=== PATIENT | female | born 1940 | race Caucasian/White ===

== ENCOUNTER 2020-07-04 | Outpatient (REF) | payer MEDICAID, SELFPAY ==
[2020-07-04 07:16] LABS: Hemoglobin 12.7 g/dl (12.0-16.0); Mean Corpuscular HGB Conc 31.8 g/dl (31.0-35.0); Mean Corpuscular Volume 88.1 fL (80-98); Mean Platelet Volume 9.3 fL (9.4-12.3); Platelet Count 171 X10*3/uL (160-400); Red Blood Count 4.54 X10*6/uL (4.20-5.50); Red Cell Distribution Width 14.3 % (11.0-16.0); White Blood Count 7.7 X10*3/uL (4.8-10.8)
[2020-07-04 07:42] LABS: Anion Gap 11 (12-20); Blood Urea Nitrogen 30 mg/dL (9-16); Carbon Dioxide 33 mmol/L (22-29); Chloride 103 mmol/L (96-108); Estimated Glomerular Filt Rate > 60; Glucose Random 87 mg/dL (60-115); Potassium 4.6 mmol/l (3.3-5.1); Sodium 142 mmol/L (135-145)
== END 2020-07-04 00:01 | disposition home or self-care (01) ==
LOC: HO.MMNH2L
PROVIDERS: Visit Provider Family Medicine
DX: M62.81 Muscle weakness (generalized) (principal)
CPT/HCPCS: 36415; 80048; 85027

== ENCOUNTER 2020-08-02 06:55 | Outpatient (REF) | payer MEDICAID, SELFPAY ==
[2020-08-02 07:09] LABS: Hematocrit 38.5 % (37-47); Hemoglobin 12.7 g/dl (12.0-16.0); Mean Corpuscular Volume 87.9 fL (80-98); Platelet Count 162 X10*3/uL (160-400); Red Blood Count 4.38 X10*6/uL (4.20-5.50); Red Cell Distribution Width 14.3 % (11.0-16.0); White Blood Count 7.1 X10*3/uL (4.8-10.8)
[2020-08-02 07:31] LABS: Anion Gap 11 (12-20); Blood Urea Nitrogen 29 mg/dL (9-16); Calcium 9.8 mg/dL (8.4-10.2); Carbon Dioxide 31 mmol/L (22-29); Chloride 103 mmol/L (96-108); Estimated Glomerular Filt Rate > 60; Glucose Random 85 mg/dL (60-115); Potassium 4.2 mmol/l (3.3-5.1); Sodium 141 mmol/L (135-145)
== END 2020-08-02 06:56 | disposition home or self-care (01) ==
LOC: HO.MMNH2L 06:55
PROVIDERS: Visit Provider Family Medicine
DX: J44.9 Chronic obstructive pulmonary disease, unspecified (principal)
CPT/HCPCS: 36415; 80048; 85027

== ENCOUNTER 2020-09-01 06:50 | Outpatient (REF) | payer MEDICAID, SELFPAY ==
[2020-09-01 07:12] LABS: Hematocrit 40.3 % (37-47); Mean Corpuscular HGB Conc 32.3 g/dl (31.0-35.0); Mean Corpuscular Hemoglobin 28.6 pg (27.0-33.0); Mean Corpuscular Volume 88.6 fL (80-98); Mean Platelet Volume 9.1 fL (9.4-12.3); Platelet Count 172 X10*3/uL (160-400); Red Blood Count 4.55 X10*6/uL (4.20-5.50); Red Cell Distribution Width 14.2 % (11.0-16.0); White Blood Count 7.8 X10*3/uL (4.8-10.8)
[2020-09-01 07:26] LABS: Anion Gap 10 (12-20); Blood Urea Nitrogen 30 mg/dL (9-16); Calcium 10.1 mg/dL (8.4-10.2); Carbon Dioxide 32 mmol/L (22-29); Chloride 105 mmol/L (96-108); Estimated Glomerular Filt Rate 58; Glucose Random 94 mg/dL (60-115); Potassium 4.4 mmol/l (3.3-5.1); Sodium 143 mmol/L (135-145)
== END 2020-09-01 06:51 | disposition home or self-care (01) ==
LOC: HO.MMNH2L 06:50
PROVIDERS: Visit Provider Family Medicine
DX: J44.9 Chronic obstructive pulmonary disease, unspecified (principal); E03.9 Hypothyroidism, unspecified
CPT/HCPCS: 36415; 80048; 85027

== ENCOUNTER 2020-10-02 07:40 | Outpatient (REF) | payer MEDICAID, SELFPAY ==
[2020-10-02 07:59] LABS: Hematocrit 38.6 % (37-47); Hemoglobin 12.7 g/dl (12.0-16.0); Mean Corpuscular HGB Conc 32.9 g/dl (31.0-35.0); Mean Corpuscular Hemoglobin 28.8 pg (27.0-33.0); Mean Corpuscular Volume 87.5 fL (80-98); Mean Platelet Volume 9.2 fL (9.4-12.3); Platelet Count 185 X10*3/uL (160-400); Red Blood Count 4.41 X10*6/uL (4.20-5.50); White Blood Count 6.7 X10*3/uL (4.8-10.8)
[2020-10-02 08:25] LABS: Anion Gap 11 (12-20); Blood Urea Nitrogen 29 mg/dL (9-16); Calcium 10.3 mg/dL (8.4-10.2); Carbon Dioxide 33 mmol/L (22-29); Chloride 104 mmol/L (96-108); Estimated Glomerular Filt Rate 60; Glucose Random 100 mg/dL (60-115); Potassium 4.6 mmol/l (3.3-5.1); Sodium 143 mmol/L (135-145)
== END 2020-10-02 07:41 | disposition home or self-care (01) ==
LOC: HO.MMNH2L 07:40
PROVIDERS: Visit Provider Family Medicine
DX: E03.9 Hypothyroidism, unspecified (principal)
CPT/HCPCS: 36415; 80048; 85027

== ENCOUNTER 2020-11-01 08:59 | Outpatient (REF) | payer MEDICAID, SELFPAY ==
[2020-11-01 06:58] LABS: Hematocrit 36.8 % (37-47); Hemoglobin 11.8 g/dl (12.0-16.0); Mean Corpuscular HGB Conc 32.1 g/dl (31.0-35.0); Mean Corpuscular Hemoglobin 28.2 pg (27.0-33.0); Mean Corpuscular Volume 87.8 fL (80-98); Mean Platelet Volume 9.2 fL (9.4-12.3); Platelet Count 182 X10*3/uL (160-400); Red Blood Count 4.19 X10*6/uL (4.20-5.50); Red Cell Distribution Width 14.4 % (11.0-16.0); White Blood Count 6.4 X10*3/uL (4.8-10.8)
[2020-11-01 07:05] LABS: Anion Gap 11 (12-20); Blood Urea Nitrogen 23 mg/dL (9-16); Calcium 9.9 mg/dL (8.4-10.2); Carbon Dioxide 31 mmol/L (22-29); Chloride 106 mmol/L (96-108); Estimated Glomerular Filt Rate 60; Glucose Random 98 mg/dL (60-115); Sodium 143 mmol/L (135-145)
== END 2020-11-01 09:00 | disposition home or self-care (01) ==
LOC: HO.MMNH2L 08:59
PROVIDERS: Visit Provider Family Medicine
DX: N17.9 Acute kidney failure, unspecified (principal)
CPT/HCPCS: 36415; 80048; 85027

== ENCOUNTER 2020-11-29 | Outpatient (REF) | payer MEDICAID, SELFPAY ==
[2020-11-29 06:59] LABS: Hematocrit 38.1 % (37-47); Hemoglobin 12.2 g/dl (12.0-16.0); Mean Corpuscular Hemoglobin 28.3 pg (27.0-33.0); Mean Corpuscular Volume 88.4 fL (80-98); Mean Platelet Volume 9.4 fL (9.4-12.3); Platelet Count 203 X10*3/uL (160-400); Red Blood Count 4.31 X10*6/uL (4.20-5.50); Red Cell Distribution Width 14.6 % (11.0-16.0); White Blood Count 6.7 X10*3/uL (4.8-10.8)
[2020-11-29 07:21] LABS: Anion Gap 11 (12-20); Blood Urea Nitrogen 23 mg/dL (9-16); Calcium 9.6 mg/dL (8.4-10.2); Carbon Dioxide 29 mmol/L (22-29); Chloride 109 mmol/L (96-108); Estimated Glomerular Filt Rate > 60; Glucose Random 94 mg/dL (60-115); Potassium 4.3 mmol/L (3.3-5.1); Sodium 145 mmol/L (135-145)
== END 2020-11-29 00:01 | disposition home or self-care (01) ==
LOC: HO.MMNH3L
PROVIDERS: Visit Provider Family Medicine
DX: N17.9 Acute kidney failure, unspecified (principal)
CPT/HCPCS: 36415; 80048; 85027

== ENCOUNTER 2020-12-17 06:49 | Outpatient (REF) | payer MEDICAID, SELFPAY ==
[2020-12-17 07:14] LABS: Hematocrit 39.8 % (37-47); Hemoglobin 12.9 g/dl (12.0-16.0); Mean Corpuscular HGB Conc 32.4 g/dl (31.0-35.0); Mean Corpuscular Hemoglobin 28.4 pg (27.0-33.0); Mean Corpuscular Volume 87.5 fL (80-98); Mean Platelet Volume 8.9 fL (9.4-12.3); Platelet Count 163 X10*3/uL (160-400); Red Blood Count 4.55 X10*6/uL (4.20-5.50); Red Cell Distribution Width 14.5 % (11.0-16.0); White Blood Count 7.2 X10*3/uL (4.8-10.8)
[2020-12-17 07:44] LABS: Alanine Aminotransferase 37 U/L (0-31); Albumin Level 3.8 g/dL (3.5-5.0); Alkaline Phosphatase 108 U/L (39-117); Anion Gap 10 (12-20); Aspartate Amino Transferase 19 U/L (5-31); Bilirubin Total 0.9 mg/dL (0.0-1.0); Blood Urea Nitrogen 25 mg/dL (9-16); Calcium 9.9 mg/dL (8.4-10.2); Carbon Dioxide 34 mmol/L (22-29); Chloride 104 mmol/L (96-108); Estimated Glomerular Filt Rate 54; Glucose Random 96 mg/dL (60-115); Potassium 4.7 mmol/L (3.3-5.1); Sodium 143 mmol/L (135-145); Total Protein 6.2 g/dL (6.5-8.0)
[2020-12-17 08:05] LABS: Free T4 (Free Thyroxine) 1.12 ng/dL (0.71-1.85); Vitamin D 25-OH Total 16.4 ng/mL (>30)
[2020-12-17 09:13] LABS: Folate 7.7 ng/mL (> or = 4.0); Vitamin B12 236 pg/mL (200-900)
== END 2020-12-17 06:50 | disposition home or self-care (01) ==
LOC: HO.MMNH3L 06:49
PROVIDERS: Visit Provider Family Medicine
DX: N17.9 Acute kidney failure, unspecified (principal); R53.1 Weakness
CPT/HCPCS: 36415; 80053; 82306; 82607; 82746; 84439; 84443; 85027

== ENCOUNTER 2021-01-29 | Outpatient (REF) | payer MEDICAID, SELFPAY ==
[2021-01-29 07:47] LABS: Cholesterol 150 mg/dL; HDL Cholesterol 26 mg/dL; LDL Cholesterol Calculated 64 mg/dl; Triglycerides 302 mg/dL
[2021-01-29 08:10] LABS: Free T4 (Free Thyroxine) 1.15 ng/dL (0.71-1.85); Thyroid Stimulating Hormone 0.49 uIU/mL (0.32-4.0)
== END 2021-01-29 00:01 | disposition home or self-care (01) ==
LOC: HO.MMNH3L
PROVIDERS: Visit Provider Family Medicine
DX: F32.9 Major depressive disorder, single episode, unspecified (principal); N17.9 Acute kidney failure, unspecified; I69.359 Hemiplegia and hemiparesis following cerebral infarction affecting unspecified side
CPT/HCPCS: 36415; 80061; 84439; 84443

== ENCOUNTER 2021-03-02 06:45 | Outpatient (REF) | payer SELFPAY ==
[2021-03-02 07:05] LABS: Hemoglobin 12.6 g/dl (12.0-16.0); Mean Corpuscular HGB Conc 32.3 g/dl (31.0-35.0); Mean Corpuscular Hemoglobin 28.3 pg (27.0-33.0); Mean Corpuscular Volume 87.4 fL (80-98); Mean Platelet Volume 9.1 fL (9.4-12.3); Platelet Count 179 X10*3/uL (160-400); Red Blood Count 4.46 X10*6/uL (4.20-5.50); Red Cell Distribution Width 14.6 % (11.0-16.0); White Blood Count 6.6 X10*3/uL (4.8-10.8)
[2021-03-02 07:34] LABS: Anion Gap 12 (12-20); Blood Urea Nitrogen 28 mg/dL (9-16); Calcium 10.1 mg/dL (8.4-10.2); Carbon Dioxide 31 mmol/L (22-29); Chloride 106 mmol/L (96-108); Estimated Glomerular Filt Rate 53; Glucose Random 93 mg/dL (60-115); Potassium 4.2 mmol/L (3.3-5.1); Sodium 145 mmol/L (135-145)
== END 2021-03-02 06:46 | disposition home or self-care (01) ==
LOC: HO.MMNH3L 06:45
PROVIDERS: Visit Provider Family Medicine
DX: J44.9 Chronic obstructive pulmonary disease, unspecified (principal); N17.9 Acute kidney failure, unspecified; E87.0 Hyperosmolality and hypernatremia
CPT/HCPCS: 36415; 80048; 85027

== ENCOUNTER 2021-05-04 05:00 | Outpatient (REF) | payer SELFPAY ==
[2021-05-04 07:16] LABS: Hematocrit 39.9 % (37-47); Hemoglobin 12.6 g/dl (12.0-16.0); Mean Corpuscular HGB Conc 31.6 g/dl (31.0-35.0); Mean Corpuscular Hemoglobin 27.6 pg (27.0-33.0); Mean Corpuscular Volume 87.5 fL (80-98); Mean Platelet Volume 9.4 fL (9.4-12.3); Platelet Count 159 X10*3/uL (160-400); Red Blood Count 4.56 X10*6/uL (4.20-5.50); Red Cell Distribution Width 14.8 % (11.0-16.0); White Blood Count 6.9 X10*3/uL (4.8-10.8)
[2021-05-04 07:36] LABS: Anion Gap 10 (12-20); Blood Urea Nitrogen 27 mg/dL (9-16); Calcium 9.8 mg/dL (8.4-10.2); Carbon Dioxide 32 mmol/L (22-29); Chloride 105 mmol/L (96-108); Estimated Glomerular Filt Rate 54; Glucose Random 90 mg/dL (60-115); Potassium 4.4 mmol/L (3.3-5.1); Sodium 143 mmol/L (135-145)
== END 2021-05-04 05:01 ==
LOC: HO.MMNH2L 05:00
PROVIDERS: Visit Provider Family Medicine
DX: M62.81 Muscle weakness (generalized) (principal)
CPT/HCPCS: 36415; 80048; 85027

== ENCOUNTER 2021-08-05 | Outpatient (REF) | payer MEDICARE, MEDICAID, SELFPAY ==
[2021-08-05 06:44] LABS: MANUAL DIFF FLAG NO
[2021-08-05 06:51] LABS: Basophils Percent Auto 0.4 % (0-2); Eosinophils Absolute Auto 0.2 X10*3/uL (0.0-0.4); Eosinophils Percent Auto 3.2 % (0-4); Hematocrit 39.9 % (37.0-47.0); Hemoglobin 12.7 g/dl (12.0-16.0); Imm Gran Abs Auto 0.07 X10*3/uL (0.00-0.03); Lymphocytes Absolute Auto 1.9 X10*3/uL (1.2-4.9); Lymphocytes Percent Auto 25.9 % (20-40); Mean Corpuscular HGB Conc 31.8 g/dl (31.0-35.0); Mean Corpuscular Hemoglobin 28.2 pg (27.0-33.0); Mean Corpuscular Volume 88.7 fL (80.0-98.0); Monocytes Absolute Auto 0.4 X10*3/uL (0.1-1.2); Neutrophils Absolute Auto 4.6 x10*3/uL (2.0-8.3); Neutrophils Percent Auto 63.5 % (45-73); Platelet Count 164 X10*3/uL (160-400); Red Cell Distribution Width 15.2 % (11.0-16.0); White Blood Count 7.2 X10*3/uL (4.8-10.8)
[2021-08-05 07:07] LABS: Anion Gap 9 (12-20); Blood Urea Nitrogen 30 mg/dL (9-16); Carbon Dioxide 33 mmol/L (22-29); Chloride 106 mmol/L (96-108); Estimated Glomerular Filt Rate 53; Glucose Random 97 mg/dL (60-115); Potassium 4.2 mmol/L (3.3-5.1); Sodium 144 mmol/L (135-145)
== END 2021-08-05 00:01 | disposition home or self-care (01) ==
LOC: HO.MMNH2L
PROVIDERS: Visit Provider Family Medicine
DX: M62.81 Muscle weakness (generalized) (principal)
CPT/HCPCS: 36415; 80048; 85025

== ENCOUNTER 2022-09-06 07:16 | Outpatient (REF) | payer MEDICAID, SELFPAY ==
[2022-09-06 08:52] LABS: Influenza A PCR POSITIVE (Negative); Influenza B PCR NEGATIVE (Negative); Resp Syncy Virus RNA Qual PCR NEGATIVE (Negative); SARS COV2 PCR INHOUSE NEGATIVE (Negative)
== END 2022-09-06 07:17 | disposition home or self-care (01) ==
LOC: HO.MMNH3L 07:16
PROVIDERS: Visit Provider Family Medicine
DX: Z20.822 Contact with and (suspected) exposure to COVID-19 (principal); J44.9 Chronic obstructive pulmonary disease, unspecified
CPT/HCPCS: 0241U

== ENCOUNTER 2022-09-06 09:46 | Inpatient (IN) | payer MEDICARE, MEDICAID, SELFPAY ==
[2022-09-06] VITALS (14 sets, daily range): BP systolic 86–164; BP diastolic 41–79; PULSE 63–100; RESP 14–28; TEMP 36.2–37.2; O2SAT 91–100; BMI 37.8; BMI 33.8
--- NOTE | 2022-09-06 10:14 | ECG_ITS ---
Test Reason : COUGHING Blood Pressure : / mmHG Vent. Rate : 103 BPM Atrial Rate : 103 BPM P-R Int : 166 ms QRS Dur : 106 ms QT Int : 324 ms P-R-T Axes : 038 -25 100 degrees QTc Int : 424 ms Sinus tachycardia Left ventricular hypertrophy with repolarization abnormality ( R in aVL , Sokolow-Kiser , Linden product , Romhilt-Mcallister ) Inferior infarct , age undetermined Abnormal ECG No previous ECGs available Referred By: Mercy Miles Electronically Signed By:Shubham Chamberlain
[2022-09-06 11:00] LABS: MANUAL DIFF FLAG NO
--- NOTE | 2022-09-06 11:01 | ED.GENADULT ---
HPI - General Adult General Chief complaint: Dyspnea Stated complaint: DIFF BREATHING Time Seen by Provider: 09/06/22 10:04 Source: patient, EMS and RN notes reviewed Mode of arrival: EMS Limitations: no limitations History of Present Illness HPI narrative: 82-year-old female brought [facility] from [facility] for evaluation of hypoxia patient was satting 75% on room air at the [facility], patient tested positive for the flu at the [facility] and also diagnosed with pneumonia was sent for further evaluation. Patient was given DuoNeb on facemask her O2 sat has improved to 95%. Patient is a former smoker with history of mild COPD required no supplemental oxygen use. 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 Related Data Home Medications Medication Instructions Recorded Confirmed Lactobacillus acidophilus 1 cap PO DAILY 09/06/22 09/06/22 (Acidophilus capsule) acetaminophen 325 mg tablet 650 mg PO Q4H PRN Pain 09/06/22 09/06/22 atorvastatin 80 mg tablet 80 mg PO BEDTIME 09/06/22 09/06/22 azithromycin 250 mg tablet 250 mg PO DAILY 09/06/22 09/06/22 benzocaine 15 mg lozenges 15 mg mucous membrane Q2H PRN Sore 09/06/22 09/06/22 Throat clopidogrel 75 mg tablet (Plavix) 75 mg PO DAILY 09/06/22 09/06/22 docusate sodium 100 mg capsule 100 mg PO DAILY 09/06/22 09/06/22 escitalopram oxalate 10 mg tablet 10 mg PO DAILY 09/06/22 09/06/22 fluticasone propionate 50 1 spray intranasal Q12H PRN 09/06/22 09/06/22 mcg/actuation nasal Allergy Symptoms spray,suspension hydrocortisone 2.5 % topical cream 1 appl topical Q12H PRN Pruritis 09/06/22 09/06/22 hydroxyzine HCl 25 mg tablet 25 mg PO Q6H PRN pruitis 09/06/22 09/06/22 ipratropium 0.5 mg-albuterol 3 mg 3 ml inhalation Q4H PRN Shortness 09/06/22 09/06/22 (2.5 mg base)/3 mL nebulization Of Breath Or Wheezing soln levetiracetam 250 mg tablet 250 mg PO BEDTIME 09/06/22 09/06/22 levetiracetam 250 mg tablet 500 mg PO DAILY 09/06/22 09/06/22 levothyroxine 150 mcg tablet 150 mcg PO DAILY 09/06/22 09/06/22 loratadine 10 mg tablet 10 mg PO DAILY 09/06/22 09/06/22 peg [id number] 1 1 drp ophthalmic (eye) Q8H PRN Dry 09/06/22 09/06/22 %-0.2 %-0.2 % eye drops Eye(S) (Artificial Tears ([id number])) polyethylene glycol 3350 17 17 g PO DAILY 09/06/22 09/06/22 gram/dose oral powder (Miralax) prednisone 20 mg tablet 60 mg PO DAILY 09/06/22 09/06/22 tizanidine 4 mg tablet 4 mg PO DAILY@1300 09/06/22 09/06/22 triamcinolone acetonide 0.1 % 1 appl topical BID 09/06/22 09/06/22 topical cream Allergies Allergy/AdvReac Type Severity Reaction Status Date / Time No Known Allergies Allergy Verified 09/06/22 10:14 Review of Systems Review of Systems: All other systems are reviewed and are negative Constitutional: Reports as per HPI and Reports no additional constitutional complaints Eyes: Reports as per HPI and Reports no additional eye complaints Reports system reviewed and no additional complaints, except as documented Cardiovascular: Reports as per HPI and Reports no additional cardiovascular complaints Respiratory: Reports as per HPI and Reports no additional respiratory complaints Gastrointestinal: Reports as per HPI and Reports no additional gastrointestinal complaints Genitourinary: Reports no additional female genitourinary complaints Musculoskeletal: Reports no additional musculoskeletal complaints Skin/Breast: Reports system reviewed and no additional complaints, except as docu Psychiatric: Reports no additional psychiatric complaints Endocrine: Reports no additional endocrine complaints Hematologic/Lymphatic: Reports no additional hematologic/lymphatic complaints Allergic/Immunologic: Reports no additional allergic/immunologic complaints Reports system reviewed and no additional complaints, except as documented and Reports Abnormal speech present PMFSH Social History Social History Advance Directives: No Advance Directives Information Provided: Yes Physical Exam ED Vital Signs: Vital Signs - 24 hr 09/06/22 10:06 09/06/22 11:31 09/06/22 11:59 Temperature 98.8 F Pulse Rate 100 78 85 Respiratory Rate 24 H 22 H 20 Blood Pressure 147/76 H 115/58 L Pulse Oximetry 95 100 Oxygen Delivery Method Nasal Cannula Nasal Cannula Oxygen Flow Rate 4 09/06/22 14:00 Temperature 98.7 F Pulse Rate 100 Respiratory Rate 22 H Blood Pressure 124/61 Pulse Oximetry 92 Oxygen Delivery Method Nasal Cannula Oxygen Flow Rate 4 BMI result Body Mass Index 37.8 Vital signs have been reviewed as appeared to be correct. Blood pressure normal. Heart rate normal. Respiration rate elevated. Temperature normal. Oxygen saturation normal. Appearance: Alert. Oriented X3. No acute distress. Head: Normal external exam. Normocephalic. Atraumatic. No Kirkpatrick signs noted. No raccoon eyes noted Eyes: PERRLA. EOMI. Conjunctiva and sclera normal. Eyelids normal. ENT: TM's Normal. Pharynx normal. Uvula midline. Moist mucous membranes. No trismus noted. No drooling noted. No muffled voice noted. Neck: Normal inspection. Neck supple. FROM. No adenopathy. Thyroid Normal. No meningeal signs. No neck mass noted. CVS: Normal heart rate and rhythm. Heart sound normal. No murmurs noted. Pulses normal throughout. Respiratory: No respiratory distress. Painless inspiration. Breath sounds normal. Bilateral diffuse expiratory wheezing with prolonged expiration and decreased breathing sound bilaterally, crackers bilateral bases of both lungs.. Chest nontender. No accessory muscle usage noted or decreased air movement noted. Abdomen: Soft and nontender. Bowel sounds normal in all 4 quadrants. No distention noted. No organomegaly noted. No visible injury noted. Back: No CVA tenderness. Full range of motion noted. Skin: Skin warm and dry. Normal skin color. Normal skin turgor. No rashes/lesions/lacerations noted. Extremities: No lower extremity edema. Extremities exhibit normal range of motion. Extremities nontender. Neuro: Oriented X 3. Cranial nerve exam: II-XII are grossly intact No motor deficit. No sensory deficit. Reflexes normal. Course Course Course Narrative: Influenza a, patient was hypoxic at the [facility] improved with oxygen and bronchodilator, CT/x-ray of the chest highly suspicious for infiltrate patient was covered with antibiotic patient do not meet criteria for sepsis or septic shock. Since patient's symptoms started in the last 72 hours will start the patient on Tamiflu. Will admit the patient continue supplemental oxygen. Because the equivocal chest x-ray patient had CT of the chest and incidentally found to have distended bowel subsequently CT of the abdomen and pelvis was ordered which showed constipation otherwise no acute pathology, patient will be given enema. Medications Administered Discontinued Medications Generic Name Dose Route Start Last Admin Trade Name Freq PRN Reason Stop Dose Admin Albuterol Sulfate 2.5 mg 09/06/22 11:00 09/06/22 11:28 Albuterol Sulfate (0.083%) 2.5 Mg/3 Ml Vial.Neb INHALE 09/06/22 11:01 2.5 mg ONCE ONE Administration Albuterol/Ipratropium 3 ml 09/06/22 11:00 09/06/22 11:28 Albuterol/Iprat 2.5/0.5mg 3 Ml Ampul.Neb INHALE 09/06/22 11:01 3 ml ONCE ONE Administration Ceftriaxone Sodium 1 gm/ 50 mls @ 100 mls/hr 09/06/22 11:06 09/06/22 12:53 Sodium Chloride IV 09/06/22 11:35 Infused ONCE ONE Infusion Azithromycin 500 mg/ Sodium 250 mls @ 125 mls/hr 09/06/22 11:06 09/06/22 12:53 Chloride IV 09/06/22 13:05 125 mls/hr ONCE ONE Administration Sodium Chloride 1,000 mls @ 250 mls/hr 09/06/22 11:06 09/06/22 11:55 Ns IV 09/06/22 15:05 250 mls/hr .Q4H ONE Administration Methylprednisolone Sodium Succinate 125 mg 09/06/22 11:00 09/06/22 11:55 Methylprednisolone Sod Succ 125 Mg/2 Ml Vial IVPUSH 09/06/22 11:01 125 mg ONCE ONE Administration Medical Decision Making Differential Diagnosis Differential Diagnoses: The differential diagnosis associated with the presentation includes (COPD exacerbation/pneumonia/severe sepsis/influenza/COVID-19/RSV/CHF/hypoxia) Admission/Observation Consideration of admission/observation: Escalation of care including admission/observation considered Consult Healthcare Provider Management of the patient was discussed with: Hospitalist Lab Data MDM Lab Attestation statement: I reviewed the patient's lab results. Result Diagrams: 09/06/22 10:55 12/26/22 10:54 Labs: Lab Results 09/06/22 09/06/22 09/06/22 Range/Units 10:29 10:54 10:54 WBC (4.8-10.8) X10*3/uL RBC (4.20-5.50) X10*6/uL Hgb (12.0-16.0) g/dl Hct (37.0-47.0) % MCV (80.0-98.0) fL MCH (27.0-33.0) pg MCHC (31.0-35.0) g/dl RDW (11.0-16.0) % Plt Count (160-400) X10*3/uL MPV (9.4-12.3) fL Immature Gran % (Auto) (0.0-0.4) % Neut % (Auto) (45-73) % Lymph % (Auto) (20-40) % Person % (Auto) (2-11) % Eos % (Auto) (0-4) % Baso % (Auto) (0-2) % Lymph # (Auto) (1.2-4.9) X10*3/uL Person # (Auto) (0.1-1.2) X10*3/uL Eos # (Auto) (0.0-0.4) X10*3/uL Baso # (Auto) (0.0-0.2) X10*3/uL Abs Immat Gran (auto) (0.00-0.03) X10*3/uL Absolute Neuts (auto) (2.0-8.3) x10*3/uL Absolute Nucleated RBC (0.0-0.012) X10*3/uL Nucleated RBC % (auto) (0.0-0.2) /100WBC Sodium 148 H (135-145) mmol/L Potassium 4.3 (3.3-5.1) mmol/L Chloride 104 (96-108) mmol/L Carbon Dioxide 38 H (22-29) mmol/L Anion Gap 10 L (12-20) BUN 19 H (9-16) mg/dL Creatinine 1.05 (0.5-1.4) mg/dL Estim Creat Clear Calc 42.1 Estimated GFR 50 Random Glucose 124 H (60-115) mg/dL Lactic Acid 0.7 (0.5-2.0) mmol/L Calcium 10.2 (8.4-10.2) mg/dL Total Bilirubin 1.0 (0.0-1.0) mg/dL Direct Bilirubin 0.3 (0.0-0.5) mg/dL AST 14 (5-31) U/L ALT 16 (0-31) U/L Alkaline Phosphatase 101 (39-117) U/L Troponin I High Sens (<3.5-17.0) ng/L B-Natriuretic Peptide (<100) pg/mL Total Protein 6.4 L (6.5-8.0) g/dL Albumin 3.7 (3.5-5.0) g/dL Lipase 18 (8-78) U/L Influenza Type A (PCR) POSITIVE A (Negative) Influenza Type B (PCR) NEGATIVE (Negative) RSV RNA Qual (PCR) NEGATIVE (Negative) SARS-CoV-2 RNA (RT-PCR) NEGATIVE (Negative) 09/06/22 09/06/22 09/06/22 Range/Units 10:55 10:55 10:55 WBC 11.8 H (4.8-10.8) X10*3/uL RBC 5.09 (4.20-5.50) X10*6/uL Hgb 13.6 (12.0-16.0) g/dl Hct 45.5 (37.0-47.0) % MCV 89.4 (80.0-98.0) fL MCH 26.7 L (27.0-33.0) pg MCHC 29.9 L (31.0-35.0) g/dl RDW 15.2 (11.0-16.0) % Plt Count 135 L (160-400) X10*3/uL MPV 9.4 (9.4-12.3) fL Immature Gran % (Auto) 0.6 H (0.0-0.4) % Neut % (Auto) 86.2 H (45-73) % Lymph % (Auto) 7.4 L (20-40) % Person % (Auto) 4.7 (2-11) % Eos % (Auto) 0.8 (0-4) % Baso % (Auto) 0.3 (0-2) % Lymph # (Auto) 0.9 L (1.2-4.9) X10*3/uL Person # (Auto) 0.6 (0.1-1.2) X10*3/uL Eos # (Auto) 0.1 (0.0-0.4) X10*3/uL Baso # (Auto) 0.0 (0.0-0.2) X10*3/uL Abs Immat Gran (auto) 0.07 H (0.00-0.03) X10*3/uL Absolute Neuts (auto) 10.2 H (2.0-8.3) x10*3/uL Absolute Nucleated RBC 0.000 (0.0-0.012) X10*3/uL Nucleated RBC % (auto) 0.0 (0.0-0.2) /100WBC Sodium (135-145) mmol/L Potassium (3.3-5.1) mmol/L Chloride (96-108) mmol/L Carbon Dioxide (22-29) mmol/L Anion Gap (12-20) BUN (9-16) mg/dL Creatinine (0.5-1.4) mg/dL Estim Creat Clear Calc Estimated GFR Random Glucose (60-115) mg/dL Lactic Acid (0.5-2.0) mmol/L Calcium (8.4-10.2) mg/dL Total Bilirubin (0.0-1.0) mg/dL Direct Bilirubin (0.0-0.5) mg/dL AST (5-31) U/L ALT (0-31) U/L Alkaline Phosphatase (39-117) U/L Troponin I High Sens 13.4 (<3.5-17.0) ng/L B-Natriuretic Peptide 286 H (<100) pg/mL Total Protein (6.5-8.0) g/dL Albumin (3.5-5.0) g/dL Lipase (8-78) U/L Influenza Type A (PCR) (Negative) Influenza Type B (PCR) (Negative) RSV RNA Qual (PCR) (Negative) SARS-CoV-2 RNA (RT-PCR) (Negative) Independent Interpretation I performed an independent interpretation of an: Plain X-Ray (Right middle lobe infiltrate.) Radiology Impression Discussion of test interpretation with radiology: I have reviewed the radiologist's reading. (CT chest/abdomen and pelvis.) Discharge Plan Discharge Clinical Impression: Hypoxia, Influenza A, Pneumonia, Acute exacerbation of chronic obstructive pulmonary disease Patient Disposition: Admitted As Inpatient
[2022-09-06 11:03] LABS: Basophils Percent Auto 0.3 % (0-2); Eosinophils Absolute Auto 0.1 X10*3/uL (0.0-0.4); Eosinophils Percent Auto 0.8 % (0-4); Hematocrit 45.5 % (37.0-47.0); Hemoglobin 13.6 g/dl (12.0-16.0); Imm Gran Abs Auto 0.07 X10*3/uL (0.00-0.03); Imm Gran Pct Auto 0.6 % (0.0-0.4); Lymphocytes Absolute Auto 0.9 X10*3/uL (1.2-4.9); Lymphocytes Percent Auto 7.4 % (20-40); Mean Corpuscular HGB Conc 29.9 g/dl (31.0-35.0); Mean Corpuscular Hemoglobin 26.7 pg (27.0-33.0); Mean Corpuscular Volume 89.4 fL (80.0-98.0); Mean Platelet Volume 9.4 fL (9.4-12.3); Monocytes Absolute Auto 0.6 X10*3/uL (0.1-1.2); Monocytes Percent Auto 4.7 % (2-11); Neutrophils Absolute Auto 10.2 x10*3/uL (2.0-8.3); Neutrophils Percent Auto 86.2 % (45-73); Platelet Count 135 X10*3/uL (160-400); Red Blood Count 5.09 X10*6/uL (4.20-5.50); Red Cell Distribution Width 15.2 % (11.0-16.0); White Blood Count 11.8 X10*3/uL (4.8-10.8)
--- NOTE | 2022-09-06 11:04 | PHA.MEDREC ---
Pharmacy Consult ? Medication Reconciliation Pharmacy has completed the medication reconciliation. Patient came from [facility] with med list. Luci Sexton, fideD
[2022-09-06 11:20] LABS: Lactic Acid 0.7 mmol/L (0.5-2.0)
[2022-09-06 11:24] LABS: Alanine Aminotransferase 16 U/L (0-31); Albumin Level 3.7 g/dL (3.5-5.0); Alkaline Phosphatase 101 U/L (39-117); Anion Gap 10 (12-20); Aspartate Amino Transferase 14 U/L (5-31); Bilirubin Direct 0.3 mg/dL (0.0-0.5); Blood Urea Nitrogen 19 mg/dL (9-16); Calcium 10.2 mg/dL (8.4-10.2); Carbon Dioxide 38 mmol/L (22-29); Chloride 104 mmol/L (96-108); Creatinine Clr Calc Pharmacy 42.1; Estimated Glomerular Filt Rate 50; Glucose Random 124 mg/dL (60-115); Lipase 18 U/L (8-78); Potassium 4.3 mmol/L (3.3-5.1); Sodium 148 mmol/L (135-145); Total Protein 6.4 g/dL (6.5-8.0)
[2022-09-06 11:28] LABS: Influenza A PCR POSITIVE (Negative); Influenza B PCR NEGATIVE (Negative); Resp Syncy Virus RNA Qual PCR NEGATIVE (Negative); SARS COV2 PCR INHOUSE NEGATIVE (Negative)
[2022-09-06 11:29] LABS: B Type Natriuretic Peptide 286 pg/mL (<100)
[2022-09-06 11:31] LABS: Troponin-I High Sensitivity 13.4 ng/L (<3.5-17.0)
--- NOTE | 2022-09-06 15:29 | PM.IMHP ---
History of Present Illness Date of Service: 09/06/22 <Isabela Yeboah NP - Last Filed: 09/06/22 16:00> Attending physician on admission: Santa Delgadillo <Isabela Yeboah NP - Last Filed: 09/06/22 16:00> Chief Complaint: SOB <Isabela Yeboah NP - Last Filed: 09/06/22 16:00> 82-year-old woman presenting from [facility] with hypoxia, oxygen saturation of 75% on room air. Apparently the patient had tested positive for influenza at the detention facility and again while in the ER. Was given DuoNebs and oxygen via face mask and her saturations did improve up to the high 90s. Patient is mostly bed ridden and wheelchair-bound. Unfortunately patient was unable to give any information she is lethargic and there is believed to be a component of dementia as well Chest CT showing dependent consolidation of both lungs, likely reflecting atelectasis with possible superimposed infection, abdominal CT showing severe constipation with desiccated stool ball at the rectal vault. Sodium 148, patient received 1 L of normal saline in the ER. BNP 2 in 86 however patient does not appear to be in heart failure. Flu A positive. In the ER, she received albuterol, Solu-Medrol, Rocephin, azithromycin and 2 Fleet enemas. To be admitted for further management and treatment of acute hypoxic respiratory failure secondary to viral pneumonia and influenza A. <Isabela Yeboah NP - Last Filed: 09/06/22 16:00> Review of Systems Review of Systems: <Isabela Yeboah NP - Last Filed: 09/06/22 16:00> Yes Unobtainable due to mental condition and Unobtainable due to mental status <Isabela Yeboah NP - Last Filed: 09/06/22 16:00> [facility] Medical History: Medical History (Updated 09/06/22 @ 15:54 by Isabela Yeboah NP) Cardiomyopathy Constipation COPD (chronic obstructive pulmonary disease) CVA (cerebral vascular accident) Depression Dysphagia Hemiparesis Hyperlipidemia Hypothyroidism Seizure disorder TIA (transient ischemic attack) <Isabela Yeboah NP - Last Filed: 09/06/22 16:00> Pertinent family history: Unable to verify as patient is lethargic and unaccompanied <Isabela Yeboah NP - Last Filed: 09/06/22 16:00> Social History: Social History (Updated 09/06/22 @ 15:37 by Isabela Yeboah NP) Housing: [facility] Advance Directives: No Advance Directives Information Provided: Yes <Isabela Yeboah NP - Last Filed: 09/06/22 16:00> Meds Allergies/Adverse reactions: Allergies Allergy/AdvReac Type Severity Reaction Status Date / Time No Known Allergies Allergy Verified 09/06/22 10:14 <Isabela Yeboah NP - Last Filed: 09/06/22 16:00> Active Medications: Current Medications Acetaminophen (Acetaminophen 325 Mg Tablet) 650 mg PO Q6H PRN PRN Reason: Pain, Mild (Pain Scale 1-3) Albuterol/Ipratropium (Albuterol/Iprat 2.5/0.5mg 3 Ml Ampul.Neb) 3 ml INHALE Q4H PRN PRN Reason: Shortness Of Breath Or Wheezing Atorvastatin Calcium (Atorvastatin Calcium 80 Mg Tablet) 80 mg PO BEDTIME NOEMY Clopidogrel Bisulfate (Clopidogrel Bisulfate 75 Mg Tablet) 75 mg PO DAILY NOEMY Docusate Sodium (Docusate Sodium 100 Mg Capsule) 100 mg PO DAILY [facility] Escitalopram Oxalate (Escitalopram Oxalate 10 Mg Tablet) 10 mg PO DAILY [facility] Fluticasone Propionate (Fluticasone Propionate Nasal 16 Gm [place]) 1 spray NOSTRIL-B Q12H PRN PRN Reason: Allergy Symptoms Heparin Sodium (Porcine) (Heparin Sodium,Porcine 5,000 Unit/Ml Vial) 5,000 unit SUBCUT Q12H NOEMY Hydroxyzine HCl (Hydroxyzine Hcl 25 Mg Tablet) 25 mg PO Q6H PRN PRN Reason: pruitis Levetiracetam (Levetiracetam 250 Mg Tablet) 250 mg PO BEDTIME NOEMY Levetiracetam (Levetiracetam 500 Mg Tablet) 500 mg PO DAILY NOEMY Levothyroxine Sodium (Levothyroxine Sodium 150 Mcg Tablet) 150 mcg PO DAILY NOEMY Loratadine (Loratadine 10 Mg Tablet) 10 mg PO DAILY NOEMY Ondansetron HCl (Ondansetron Hcl 4 Mg/2 Ml Vial) 4 mg IVPUSH Q8H PRN PRN Reason: Nausea and Vomiting Oseltamivir Phosphate (Oseltamivir Phosphate 75 Mg Capsule) 75 mg PO Q12H NOEMY Stop: 09/11/22 03:31 Pharmacy Consult (Consult Rx Perform Med Rec) 1 each MISCELLANE ONCE PRN PRN Reason: Consult order Prednisone (Prednisone 20 Mg Tablet) 60 mg PO DAILY [facility] Sodium Chloride (0.9 % Sodium Chloride Flush 3 Ml Syringe) 3 ml IVFLUSH QSHIFT [facility] Tizanidine HCl (Tizanidine Hcl 4 Mg Tablet) 4 mg PO DAILY@1300 [facility] <Isabela Yeboah NP - Last Filed: 09/06/22 16:00> Home medications: Home Medications Medication Instructions Recorded Confirmed Last Taken Type Lactobacillus acidophilus 1 cap PO DAILY 09/06/22 09/06/22 Unknown History (Acidophilus capsule) acetaminophen 325 mg tablet 650 mg PO Q4H PRN Pain 09/06/22 09/06/22 Unknown History atorvastatin 80 mg tablet 80 mg PO BEDTIME 09/06/22 09/06/22 Unknown History azithromycin 250 mg tablet 250 mg PO DAILY 09/06/22 09/06/22 Unknown History benzocaine 15 mg lozenges 15 mg mucous membrane Q2H PRN Sore 09/06/22 09/06/22 Unknown History Throat clopidogrel 75 mg tablet (Plavix) 75 mg PO DAILY 09/06/22 09/06/22 Unknown History docusate sodium 100 mg capsule 100 mg PO DAILY 09/06/22 09/06/22 Unknown History escitalopram oxalate 10 mg tablet 10 mg PO DAILY 09/06/22 09/06/22 Unknown History fluticasone propionate 50 1 spray intranasal Q12H PRN 09/06/22 09/06/22 Unknown History mcg/actuation nasal Allergy Symptoms spray,suspension hydrocortisone 2.5 % topical cream 1 appl topical Q12H PRN Pruritis 09/06/22 09/06/22 Unknown History hydroxyzine HCl 25 mg tablet 25 mg PO Q6H PRN pruitis 09/06/22 09/06/22 Unknown History ipratropium 0.5 mg-albuterol 3 mg 3 ml inhalation Q4H PRN Shortness 09/06/22 09/06/22 Unknown History (2.5 mg base)/3 mL nebulization Of Breath Or Wheezing soln levetiracetam 250 mg tablet 250 mg PO BEDTIME 09/06/22 09/06/22 Unknown History levetiracetam 250 mg tablet 500 mg PO DAILY 09/06/22 09/06/22 Unknown History levothyroxine 150 mcg tablet 150 mcg PO DAILY 09/06/22 09/06/22 Unknown History loratadine 10 mg tablet 10 mg PO DAILY 09/06/22 09/06/22 Unknown History peg [id number] 1 1 drp ophthalmic (eye) Q8H PRN Dry 09/06/22 09/06/22 Unknown History %-0.2 %-0.2 % eye drops Eye(S) (Artificial Tears ([id number])) polyethylene glycol 3350 17 17 g PO DAILY 09/06/22 09/06/22 Unknown History gram/dose oral powder (Miralax) prednisone 20 mg tablet 60 mg PO DAILY 09/06/22 09/06/22 Unknown History tizanidine 4 mg tablet 4 mg PO DAILY@1300 09/06/22 09/06/22 Unknown History triamcinolone acetonide 0.1 % 1 appl topical BID 09/06/22 09/06/22 Unknown History topical cream <Isabela Yeboah NP - Last Filed: 09/06/22 16:00> Physical Exam Vital Signs and Narrative: Vital Signs: Last Vital Signs Temp 98.7 F 09/06/22 14:00 Pulse 100 09/06/22 14:00 Resp 22 H 09/06/22 14:00 BP 124/61 09/06/22 14:00 Pulse Ox 92 09/06/22 14:00 O2 Del Method 09/06/22 14:00 O2 Flow Rate 4 09/06/22 14:00 Oxygen Flow Rate 5 09/06/22 10:06 BMI result Body Mass Index 37.8 <Isabela Yeboah NP - Last Filed: 09/06/22 16:00> Appearing in no acute distress head is normocephalic atraumatic eyes pupils are PERRLA sclera is anicteric mouth throat mucous membranes are intact and moist neck is supple no lymphadenopathy, no JVD noted lung sounds are clear to auscultation heart regular rate rhythm, clear S1, S2 positive bowel sounds, abdomen is soft, nontender neuro patient is alert x3, no focal deficits <Isabela Yeboah NP - Last Filed: 09/06/22 16:00> Results Labs CBC and Chem 7: : 09/06/22 10:55 09/06/22 10:54 <Isabela Yeboah NP - Last Filed: 09/06/22 16:00> Labs: Laboratory Results - last 24 hr 09/06/22 09/06/22 09/06/22 10:29 10:54 10:54 MCV MCH MCHC RDW Plt Count MPV Immature Gran % (Auto) Neut % (Auto) Lymph % (Auto) [place] % (Auto) Eos % (Auto) Baso % (Auto) Lymph # (Auto) [place] # (Auto) Eos # (Auto) Baso # (Auto) Abs Immat Gran (auto) Absolute Neuts (auto) Absolute Nucleated RBC Nucleated RBC % (auto) Anion Gap 10 L Estim Creat Clear Calc 42.1 Estimated GFR 50 Random Glucose 124 H Lactic Acid 0.7 Calcium 10.2 Total Bilirubin 1.0 Direct Bilirubin 0.3 AST 14 ALT 16 Alkaline Phosphatase 101 Troponin I High Sens B-Natriuretic Peptide Total Protein 6.4 L Albumin 3.7 Lipase 18 Influenza Type A (PCR) POSITIVE A Influenza Type B (PCR) NEGATIVE RSV RNA Qual (PCR) NEGATIVE SARS-CoV-2 RNA (RT-PCR) NEGATIVE 09/06/22 09/06/22 09/06/22 10:55 10:55 10:55 MCV 89.4 MCH 26.7 L MCHC 29.9 L RDW 15.2 Plt Count 135 L MPV 9.4 Immature Gran % (Auto) 0.6 H Neut % (Auto) 86.2 H Lymph % (Auto) 7.4 L [place] % (Auto) 4.7 Eos % (Auto) 0.8 Baso % (Auto) 0.3 Lymph # (Auto) 0.9 L [place] # (Auto) 0.6 Eos # (Auto) 0.1 Baso # (Auto) 0.0 Abs Immat Gran (auto) 0.07 H Absolute Neuts (auto) 10.2 H Absolute Nucleated RBC 0.000 Nucleated RBC % (auto) 0.0 Anion Gap Estim Creat Clear Calc Estimated GFR Random Glucose Lactic Acid Calcium Total Bilirubin Direct Bilirubin AST ALT Alkaline Phosphatase Troponin I High Sens 13.4 B-Natriuretic Peptide 286 H Total Protein Albumin Lipase Influenza Type A (PCR) Influenza Type B (PCR) RSV RNA Qual (PCR) SARS-CoV-2 RNA (RT-PCR) <Isabela Yeboah NP - Last Filed: 09/06/22 16:00> Imaging Radiologist's Impressions: Impressions Chest X-Ray 09/06/22 10:20 FINDINGS/IMPRESSION: The study is limited by portable technique, low lung volumes, and thoracic dextroscoliosis. Prominence of the pulmonary veins in their nondependent portions raises suspicion for pulmonary venous hypertension. Patchy, bilateral interstitial prominence appears present. Small left basilar hazy density suggests pleural fluid, atelectasis, and/or focal infiltrate. The above findings raise the possibility of pulmonary edema with small left effusion; superimposed pneumonia cannot be confirmed or excluded. The cardiac silhouette is poorly evaluated. The aorta is atherosclerotic and uncoiled. Chest CT 09/06/22 12:52 IMPRESSION: * Large desiccated stool ball within the rectum measuring at 10.5 cm in diameter with rectal wall thickening and infiltration of the perirectal fat suspicious for stercoral colitis. Trace free fluid in the right lower quadrant. * Heart is mildly enlarged with small bilateral pleural effusions and ill-defined groundglass and interlobular septal thickening in the lung apices suggests a component of pulmonary edema. * Significant dependent consolidation in both lungs, given the exam performed in expiration likely to reflect significant atelectasis with near complete right middle lobe collapse, however superimposed infection would be difficult to exclude. * Cholelithiasis without evidence of acute cholecystitis. * A 2.9 cm cystic lesion in the pancreatic neck. No pancreatic duct dilatation. Recommend every other year follow-up MR/MRCP with contrast x2 to assess stability. * 3 mm nonobstructing right upper pole renal stone. No obstructive ureterolithiasis. Abdomen/Pelvis CT 09/06/22 12:55 IMPRESSION: * Large desiccated stool ball within the rectum measuring at 10.5 cm in diameter with rectal wall thickening and infiltration of the perirectal fat suspicious for stercoral colitis. Trace free fluid in the right lower quadrant. * Heart is mildly enlarged with small bilateral pleural effusions and ill-defined groundglass and interlobular septal thickening in the lung apices suggests a component of pulmonary edema. * Significant dependent consolidation in both lungs, given the exam performed in expiration likely to reflect significant atelectasis with near complete right middle lobe collapse, however superimposed infection would be difficult to exclude. * Cholelithiasis without evidence of acute cholecystitis. * A 2.9 cm cystic lesion in the pancreatic neck. No pancreatic duct dilatation. Recommend every other year follow-up MR/MRCP with contrast x2 to assess stability. * 3 mm nonobstructing right upper pole renal stone. No obstructive ureterolithiasis. <Isabela Yeboah BOOK RETAILER - Last Filed: 09/06/22 16:00> Assessment and Plan (1) Hypoxia: Status: Acute <Isabela Yeboah NP - Last Filed: 09/06/22 16:00> 82-year-old woman admitted with acute hypoxic respiratory failure, flu and pneumonia. Presented with lethargy and there may also be some component of dementia however not mentioned in the patient's records from [facility]. Acute hypoxic respiratory failure secondary to influenza a and viral pneumonia COVID and RSV negative Tamiflu renally dosed Rocephin and azithromycin Continue supplemental oxygen Acute COPD exacerbation DuoNebs, steroids continue supplemental oxygen Hypernatremia Likely secondary to dehydration Monitor closely Severe constipation Fleets enema MiraLax and Colace Hyperlipidemia Continue Plavix and statin Hypothyroidism Continue levothyroxine History of seizure disorder Continue Keppra Seizure precautions DVT prophylaxis with heparin Attending Dr. Delgadillo Full code Patient required 2 inpatient midnights for treatment of viral pneumonia, acute hypoxic respiratory failure secondary to influenza a requiring IV antibiotics and COPD exacerbation requiring schedule DuoNebs his steroids <Isabela Yeboah, BOOK RETAILER - Last Filed: 09/06/22 16:00> 82-year-old woman admitted with acute hypoxic respiratory failure, flu and pneumonia. Presented with lethargy and there may also be some component of dementia however not mentioned in the patient's records from [facility]. Acute hypoxic respiratory failure secondary to influenza a and viral pneumonia COVID and RSV negative Tamiflu renally dosed Rocephin and azithromycin Continue supplemental oxygen Acute COPD exacerbation DuoNebs, steroids continue supplemental oxygen Hypernatremia Likely secondary to dehydration Monitor closely Severe constipation Fleets enema MiraLax and Colace Hyperlipidemia Continue Plavix and statin Hypothyroidism Continue levothyroxine History of seizure disorder Continue Keppra Seizure precautions DVT prophylaxis with heparin Attending Dr. Delgadillo Full code Patient required 2 inpatient midnights for treatment of viral pneumonia, acute hypoxic respiratory failure secondary to influenza a requiring IV antibiotics and COPD exacerbation requiring schedule DuoNebs his steroids Addendum to history and physical by advanced practice provider BETITO Yeboah I interviewed and examined the patient. I discussed their presentation and management with the ÁLVARO. I reviewed the history and physical and agree with the documentation, with the following additions and corrections: 82yo F from [facility] with COPD who recently tested positive for influenza and was sent in with hypoxia down to 75% on RA. Unable to obtain history from pt due to her mental status. Tachypneic and hypoxic requiring 5L O2 via NC. Bibasilar consolidation on CT and also dessicated stool ball at rectal vault. Mild hyperNa @ 148. Plan admit to M/S, supplemental O2, oseltamivir, ceftriaxone/azithromycin, methlyprednisolone. Check ABG given elevated bicarbonate and altered mental status/lethargy although may be due to dementia. <Santa Delgadillo MD - Last Filed: 09/06/22 17:37> Time Spent With Patient Time: Total time managing care of this patient today ____ minutes. <Isabela Yeboah NP - Last Filed: 09/06/22 16:00> Quality Stroke Does the patient have a stroke diagnosis?: No <Isabela Yeboah NP - Last Filed: 09/06/22 16:00> VTE Prior VTE?: No <Isabela Yeboah NP - Last Filed: 09/06/22 16:00> VTE Risk Level:: Medical - moderate - high <Isabela Yeboah NP - Last Filed: 09/06/22 16:00> VTE Device Contraindication: Treatment Not Indicated <Isabela Yeboah NP - Last Filed: 09/06/22 16:00> VTE Drug Contraindication: N/A - Med Ordered <Isabela Yeboah NP - Last Filed: 09/06/22 16:00>
[2022-09-06 18:19] LABS: Procalcitonin 0.06 ng/mL
[2022-09-06] MEDS: Heparin Sodium,Porcine 5,000 UNIT/ML VIAL 5000 UNIT SUBCUT (18:20)
--- NOTE | 2022-09-06 19:01 | PC.NURSE ---
Took report from [facility] nurse, patient transferred to unit at 1845, report given to oncoming nurse.
[2022-09-06] MEDS: Albuterol Sulfate (0.083%) 2.5 MG/3 ML VIAL.NEB INHALE (20:15)
--- NOTE | 2022-09-06 20:18 | W.PM.CCCN ---
History of Present Illness Data of Consult Service Date: 09/06/22 Requesting physician: Santa Delgadillo Primary Care Provider: Juan Jose Doran MD HPI Reason for consult: hypoxic respiratory failure with hypercapnia SOURCE OF HISTORY: ?Patient's chart ? HPI: ?Patient is an 82-year-old female who has a history of seizures, prior stroke with left-sided hemiparesis, this fashion, depression, constipation, cardiomyopathy hypothyroidism, hyperlipidemia, COPD, not O2 dependent, wheelchair bound, upon clarifying with the healthcare proxy who is a nursing these ICU (Yvonne) the patient does not have a history of dementia. ? ? The patient presented to us after being admitted to the hospitalist service and being seen in emergency room, patient was sent from a nursing facility with reported complaints of desaturation and satting 75% at room air, it is known the patient recently tested positive for the flu and was diagnosed with pneumonia.? Patient was given a DuoNeb via face mask and her O2 sat has improved to 75%.? It is known the patient is a former smoker with some history of COPD but not O2 dependent.? Vital signs in the ER show a normotensive patient with otherwise normal vital signs, her workup revealed white count of 11.8, H&H of 13.6 and 45.5 respectively, platelets 135.? Her arterial blood gas revealed a pH of 7.21, pCO2 91, PO2 77, HC03 36, sodium 148, potassium 4.3, chloride 104, carbon dioxide 38, anion gap 10, BUN 19, creatinine 1.05 (appears to be her baseline), normal LFTs, BMP to 86, procalcitonin 0.06, Lactic Acid 0.7respiratory panel is positive for influenza type A but otherwise negative for COVID.? Patient received 1 L of IV fluids, given albuterol, Solu-Medrol, Rocephin and Zithromax as well as 2 Fleet enemas given findings of stool retention in the rectal vault. ? ?Initial checks x-ray raised the suspicion for pulmonary venous hypertension, patchy bilateral interstitial prominence, left basilar hazy densities suggesting pleural fluid, atelectasis and/or infiltrate.? Findings possibly consistent with pulmonary edema with small pleural effusions and superimposed pneumonia. Chest CT was done, overall findings suggestive of pulmonary edema, please see below for further details.? Patient was admitted to the hospital and the plan was to treat her with Tamiflu renally adjusted, Rocephin and Zithromax, steroids, DuoNebs, stool softeners as well as managing her comorbidities, however the patient appeared to be obtunded in need of BiPAP and the patient was transferred to the ICU. ? During my evaluation, the patient does open her eyes upon request, follows basic commands but appears to be somewhat somnolent still.? She does not appear to be in significant respiratory distress. ? ROS:? Unable to obtain ? Past Medical History:? As above ? Past Surgical History: unknown ? Family history:? Noncontributory ? Social History:? Has been living at alf facility for the past 7 years, wheelchair-bound after a stroke.? Former smoker (unable to quantify, no history of alcohol consumption, no history of drug use. ? CODE STATUS: FULL CODE ? Allergies: NKDA ? Home Medications: See Med Rec ? PHYSICAL EXAM: VS: 121/61; 66; 15; 93% on Bipap at 16/5 with Fio2 40% General:? Alert response to verbal stimuli by opening her eyes, follows basic commands. Skin: ?Large patchy, scaly, erythematous nonblanching lesion noted on the R lateral eye area about the size of a dime, another at the suprasternal notch approximately 10 x 5 cm in an oval shape, horizontally, no surrounding erythema or bulging, this is not have to touch.? Very small area of linear erythema noted under the left a intertriginous fold. ?HEENT:? Head is normocephalic, atraumatic, Buccal mucosa is dry. ?Neck is supple without lymphadenopathy. Cardiac:? Clear S1-S2, no murmurs rubs or gallops.? No JVD noted. Pulmonary:? Bilateral expiratory wheezes with my nor rhonchi at the left base, no crackles or rales. Abdomen:? Protuberant, positive bowel sounds in all 4 quadrants.? Soft, does not appear to be tender. Musculoskeletal:? Patient is not able to move all 4 extremities at the major joints upon request.? She does have a left footdrop. ?On passive range of motion there is no cogwheeling at the major joints of all 4 extremities.? There is no edema of the legs, no asymmetry. Neurologic:? As above, No focal deficits noted. Vascular:? 2+ pulses upper and lower extremities distally. Less than 2nd capillary refill of the finger and toes bilaterally. ? SIGNIFICANT LABORATORY DATA:? As above ? REVIEW OF IMAGES: CT chest, abdomen and pelvis without contrast IMPRESSION: ? *? Large desiccated stool ball within the rectum measuring at 10.5 cm in diameter with rectal wall thickening and infiltration of the perirectal fat suspicious for stercoral colitis. Trace free fluid in the right lower quadrant. ? *? Heart is mildly enlarged with small bilateral pleural effusions and ill-defined groundglass and interlobular septal thickening in the lung apices suggests a component of pulmonary edema. ? *? Significant dependent consolidation in both lungs, given the exam performed in expiration likely to reflect significant atelectasis with near complete right middle lobe collapse, however superimposed infection would be difficult to exclude.? ? *? Cholelithiasis without evidence of acute cholecystitis. ? *? A 2.9 cm cystic lesion in the pancreatic neck. No pancreatic duct dilatation. Recommend every other year follow-up MR/MRCP with contrast x2 to assess stability. ? *? 3 mm nonobstructing right upper pole renal stone. No obstructive ureterolithiasis. EKG REVIEW: ?Not performed ? ASSESSMENT : 1.Hypoxic respiratory failure with hypercapnia 2. Influenza A infection 3. Metabolic encephalopathy, the patient does not have a history of dementia 4. Reactive leukocytosis 5. Hypernatremia likely due to volume depletion 6. History of seizures on Keppra 7. History of CVA with left hemiparesis and dysphagia 8. Acute COPD exacerbation worsened by influenza infection 9. Juliann infection of the suprasternal notch area and left intertriginous breast area 10. Significant dependent consolidation of both lungs with near complete right middle lobe collapse, unable to exclude underlying infiltrate so far the is no Evidence of SEPSIS at this point. 11.Constipation and rectal impaction 12. Cystic lesion of the pancreatic neck 2.9 cm in need of follow-up 13. Right kidney nonobstructive nephropathy ? PLAN OF CARE: Patient was transferred to the ICU, will continue with supportive care and BiPAP. At this point I do not think the patient is septic.? Renally adjusted Tamiflu is adequate, we will hydrate her slowly with hopes of improving the BUN to creatinine ratio, continue with albuterol p.r.n., DuoNebs scheduled and steroids.? Will repeat labs and venous blood gas in the morning.? I would suspect her encephalopathy continues to improve as her CO2 level decreases.? Thus far I do not see significant evidence of a bacterial pneumonia although an underlying infiltrate of the right lung cannot be excluded; ?she does not have a significant white count, no fever, procalcitonin level is low, given that she has a COPD are will continue with Rocephin and Zithromax for now.? Will switch her anti seizure medications from oral to IV until she is able to take oral medications.? Apply nystatin cream to affected areas.? Monitor I and O. Patient will need a formal swallow evaluation to ensure her safety in the near future. Will continue with bowel regimen if not she will need a manual disimpaction. Patient will need follow-up for the above-mentioned lesion of the pancreatic neck. A follow-up x-ray in the morning will be helpful to further define the process of her right lung although at this point I do not see any drainable collection. ? GI PROPHYLAXIS:? IV ppi DVT PROPHYLAXIS: ?Heparin every 12 hours Clinical update 23:00 Patient became hypotensive slowly, she appears significantly dry; the patient is anuric and a bladder scan shows no urine within the bladder. ?New set of laboratories obtained reveal lower white count, her renal function however has worsened BUN and is now 27 creatinine 1.43.? Sodium is 148.? Her venous blood gas has improved significantly with a pH of 7.31, pCO2 67, HC03 34 and PO2 of 67.? Recheck lactic acid 1.5. Revised Assessment 14. ANITA (see clinical updatebelow) due to volume depletion and insensible losses given her Influenza A infection. I will give her gentle IV fluids I am concerned giving her boluses will throw her into CHF but will do 500cc at the time; consider obtaining laboratories early in the morning.? Patient also had a couple episodes of nonsustained bradycardia. 0320 on 09/07/2022 Almanzar catheter was checked for positioning, bladder scan reveals 133 cc in the bladder.? Her blood pressure has increased and is now 120/49.? She does have 170 cc of dark concentrated urine.? Will continue to hydrate her slowly. ? Critical care time used for critical evaluation of this patient, diagnosis, treatment and coordination of care, review her records and documentation TOTAL CRITICAL CARE TIME?120 MIN . discussion and coordination with consultants, completely separate from any procedures performed. Patient's care was discussed in detail with Dr. Adhikari.? He is aware of all the above as well as the plan of care for this patient. [facility] Past Medical History Medical History (Updated 09/06/22 @ 15:54 by Isabela Yeboah NP) Cardiomyopathy Constipation COPD (chronic obstructive pulmonary disease) CVA (cerebral vascular accident) Depression Dysphagia Hemiparesis Hyperlipidemia Hypothyroidism Seizure disorder TIA (transient ischemic attack) Social History Social History (Updated 09/06/22 @ 15:37 by Isabela Yeboah NP) Housing: Long Term Unable to assess alcohol history related to: Unable to respond Patient Tobacco Use Status: Former Tobacco user Advance Directives Date on File: 09/06/22 Meds Allergies Allergy/AdvReac Type Severity Reaction Status Date / Time No Known Allergies Allergy Verified 09/06/22 10:14 Active Medications: Current Medications Acetaminophen (Acetaminophen 325 Mg Tablet) 650 mg PO Q6H PRN PRN Reason: Pain, Mild (Pain Scale 1-3) Albuterol Sulfate (Albuterol Sulfate (0.083%) 2.5 Mg/3 Ml Vial.Neb) 2.5 mg INHALE RQ4H WHILE AWAKE [facility] Last Admin: 09/06/22 20:15 Dose: 2.5 mg Albuterol/Ipratropium (Albuterol/Iprat 2.5/0.5mg 3 Ml Ampul.Neb) 3 ml INHALE Q4H PRN PRN Reason: Shortness Of Breath Or Wheezing Atorvastatin Calcium (Atorvastatin Calcium 80 Mg Tablet) 80 mg PO BEDTIME [facility] Clopidogrel Bisulfate (Clopidogrel Bisulfate 75 Mg Tablet) 75 mg PO DAILY [facility] Docusate Sodium (Docusate Sodium 100 Mg Capsule) 100 mg PO DAILY [facility] Docusate Sodium (Docusate Sodium 100 Mg Capsule) 100 mg PO BID [facility] Escitalopram Oxalate (Escitalopram Oxalate 10 Mg Tablet) 10 mg PO DAILY [facility] Fluticasone Propionate (Fluticasone Propionate Nasal 16 Gm [place]) 1 spray NOSTRIL-B Q12H PRN PRN Reason: Allergy Symptoms Heparin Sodium (Porcine) (Heparin Sodium,Porcine 5,000 Unit/Ml Vial) 5,000 unit SUBCUT Q12H [facility] Last Admin: 09/06/22 18:20 Dose: 5,000 unit Hydroxyzine HCl (Hydroxyzine Hcl 25 Mg Tablet) 25 mg PO Q6H PRN PRN Reason: pruitis Ceftriaxone Sodium 1 gm/ (Sodium Chloride) 50 mls @ 100 mls/hr IV Q24H [facility] Azithromycin 500 mg/ Sodium (Chloride) 250 mls @ 125 mls/hr IV Q24H [facility] Levetiracetam (Levetiracetam 250 Mg Tablet) 250 mg PO BEDTIME [facility] Levetiracetam (Levetiracetam 500 Mg Tablet) 500 mg PO DAILY [facility] Levothyroxine Sodium (Levothyroxine Sodium 150 Mcg Tablet) 150 mcg PO DAILY@0630 [facility] Loratadine (Loratadine 10 Mg Tablet) 10 mg PO DAILY [facility] Methylprednisolone Sodium Succinate (Methylprednisolone Sod Succ 40 Mg/Ml Vial) 40 mg IVPUSH Q12H [facility] Ondansetron HCl (Ondansetron Hcl 4 Mg/2 Ml Vial) 4 mg IVPUSH Q8H PRN PRN Reason: Nausea and Vomiting Oseltamivir Phosphate (Oseltamivir Phosphate 30 Mg Capsule) 30 mg PO BID@0600,1800 [facility] Pharmacy Consult (Consult Rx Perform Med Rec) 1 each MISCELLANE ONCE PRN PRN Reason: Consult order Polyethylene Glycol (Polyethylene Glycol 3350 17 Gm Powd.Pack) 17 gm PO BID [facility] Sodium Chloride (0.9 % Sodium Chloride Flush 3 Ml Syringe) 3 ml IVFLUSH QSHIFT [facility] Last Admin: 09/06/22 17:02 Dose: Not Given Tizanidine HCl (Tizanidine Hcl 4 Mg Tablet) 4 mg PO DAILY@1300 [facility] Home Medications Medication Instructions Recorded Confirmed Last Taken Type Lactobacillus acidophilus 1 cap PO DAILY 09/06/22 09/06/22 Unknown History (Acidophilus capsule) acetaminophen 325 mg tablet 650 mg PO Q4H PRN Pain 09/06/22 09/06/22 Unknown History atorvastatin 80 mg tablet 80 mg PO BEDTIME 09/06/22 09/06/22 Unknown History azithromycin 250 mg tablet 250 mg PO DAILY 09/06/22 09/06/22 Unknown History benzocaine 15 mg lozenges 15 mg mucous membrane Q2H PRN Sore 09/06/22 09/06/22 Unknown History Throat clopidogrel 75 mg tablet (Plavix) 75 mg PO DAILY 09/06/22 09/06/22 Unknown History docusate sodium 100 mg capsule 100 mg PO DAILY 09/06/22 09/06/22 Unknown History escitalopram oxalate 10 mg tablet 10 mg PO DAILY 09/06/22 09/06/22 Unknown History fluticasone propionate 50 1 spray intranasal Q12H PRN 09/06/22 09/06/22 Unknown History mcg/actuation nasal Allergy Symptoms spray,suspension hydrocortisone 2.5 % topical cream 1 appl topical Q12H PRN Pruritis 09/06/22 09/06/22 Unknown History hydroxyzine HCl 25 mg tablet 25 mg PO Q6H PRN pruitis 09/06/22 09/06/22 Unknown History ipratropium 0.5 mg-albuterol 3 mg 3 ml inhalation Q4H PRN Shortness 09/06/22 09/06/22 Unknown History (2.5 mg base)/3 mL nebulization Of Breath Or Wheezing soln levetiracetam 250 mg tablet 250 mg PO BEDTIME 09/06/22 09/06/22 Unknown History levetiracetam 250 mg tablet 500 mg PO DAILY 09/06/22 09/06/22 Unknown History levothyroxine 150 mcg tablet 150 mcg PO DAILY 09/06/22 09/06/22 Unknown History loratadine 10 mg tablet 10 mg PO DAILY 09/06/22 09/06/22 Unknown History peg [id number] 1 1 drp ophthalmic (eye) Q8H PRN Dry 09/06/22 09/06/22 Unknown History %-0.2 %-0.2 % eye drops Eye(S) (Artificial Tears ([id number])) polyethylene glycol 3350 17 17 g PO DAILY 09/06/22 09/06/22 Unknown History gram/dose oral powder (Miralax) prednisone 20 mg tablet 60 mg PO DAILY 09/06/22 09/06/22 Unknown History tizanidine 4 mg tablet 4 mg PO DAILY@1300 09/06/22 09/06/22 Unknown History triamcinolone acetonide 0.1 % 1 appl topical BID 09/06/22 09/06/22 Unknown History topical cream Physical Exam Vital Signs: Vital Signs: Last Vital Signs Temp 98.6 F 09/06/22 17:31 Pulse 66 09/06/22 20:03 Resp 15 09/06/22 20:03 BP 95/47 L 09/06/22 20:03 Pulse Ox 93 09/06/22 20:03 O2 Del Method 09/06/22 20:03 O2 Flow Rate 4 09/06/22 17:31 FiO2 40 09/06/22 20:03 Oxygen Flow Rate 5 09/06/22 10:06 BMI result Body Mass Index 37.8 Results Labs CBC & Chem 7: 09/07/22 05:09 09/07/22 06:02 Labs: Short CBC 09/06/22 Range/Units 10:55 WBC 11.8 H (4.8-10.8) X10*3/uL Hgb 13.6 (12.0-16.0) g/dl Hct 45.5 (37.0-47.0) % Plt Count 135 L (160-400) X10*3/uL BMP 09/06/22 10:54 Sodium 148 H Potassium 4.3 Chloride 104 Carbon Dioxide 38 H BUN 19 H Creatinine 1.05 Calcium 10.2 Liver Function 09/06/22 Range/Units 10:54 Total Bilirubin 1.0 (0.0-1.0) mg/dL Direct Bilirubin 0.3 (0.0-0.5) mg/dL AST 14 (5-31) U/L ALT 16 (0-31) U/L Alkaline Phosphatase 101 (39-117) U/L Albumin 3.7 (3.5-5.0) g/dL Assessment and Plan Time Spent With Patient Time: Total time managing care of this patient today ____ minutes.
[2022-09-06] MEDS: methylPREDNISolone Sod Succ 40 MG/ML VIAL IVPUSH (21:11)
[2022-09-06 22:17] LABS: Hematocrit 42.1 % (37.0-47.0); Hemoglobin 12.6 g/dl (12.0-16.0); Mean Corpuscular HGB Conc 29.9 g/dl (31.0-35.0); Mean Corpuscular Volume 90.1 fL (80.0-98.0); Mean Platelet Volume 8.8 fL (9.4-12.3); Platelet Count 118 X10*3/uL (160-400); Red Blood Count 4.67 X10*6/uL (4.20-5.50); Red Cell Distribution Width 15.2 % (11.0-16.0); White Blood Count 7.7 X10*3/uL (4.8-10.8)
[2022-09-06 22:28] LABS: Lactic Acid 1.5 mmol/L (0.5-2.0)
[2022-09-06] MEDS: levETIRAcetam 250 MG in 0.9 % Sodium Chloride 100 ML 410 MG IV (22:30)
[2022-09-06 22:38] LABS: Anion Gap 11 (12-20); Blood Urea Nitrogen 27 mg/dL (9-16); Calcium 9.5 mg/dL (8.4-10.2); Carbon Dioxide 36 mmol/L (22-29); Chloride 106 mmol/L (96-108); Creatinine Clr Calc Pharmacy 29.1; Estimated Glomerular Filt Rate 35; Glucose Random 196 mg/dL (60-115); Potassium 4.9 mmol/L (3.3-5.1); Sodium 148 mmol/L (135-145)
[2022-09-07] VITALS (34 sets, daily range): BP systolic 88–138; BP diastolic 36–58; PULSE 48–100; RESP 13–26; TEMP 36.3–36.9; O2SAT 88–98; BMI 35.5
[2022-09-07] MEDS: Albuterol/Iprat 2.5/0.5MG 3 ML AMPUL.NEB INHALE ×4 (03:32→19:52)
[2022-09-07 03:39] LABS: Appearance Urine Cloudy; Color Urine Dark Yellow; Glucose Urine UA Negative (Negative); Leukocyte Esterase Urine Negative (Negative); Nitrite Urine Negative (Negative); UMIC TRIGGER UACC YES; Urine Blood Small (1+) (Negative); Urine Ketones Negative (Negative); Urine Protein 100 (2+) mg/dL (Neg-Trace)
[2022-09-07 03:53] LABS: Bacteria Urine None Seen (None Seen); Granular Casts Urine Present; Renal Epithelial Cells Urine Present; Transitional Epi Cells Urine Present; WBC Urine 0-5 /HPF (0-5)
[2022-09-07 05:26] LABS: VBG Base Excess 6.2 mmol/L; VBG HCO3 33 mmol/L (22-26); VBG pCO2 62 mmHg; VBG pH 7.34 (7.32-7.43); VBG pO2 72 mmHg
[2022-09-07 05:38] LABS: Venous Blood Gas Refer to POC result
[2022-09-07 05:42] LABS: Hematocrit 38.9 % (37.0-47.0); Hemoglobin 11.7 g/dl (12.0-16.0); Imm Gran Abs Auto 0.05 X10*3/uL (0.00-0.03); Imm Gran Pct Auto 0.9 % (0.0-0.4); Lymphocytes Absolute Auto 0.4 X10*3/uL (1.2-4.9); Lymphocytes Percent Auto 6.6 % (20-40); MANUAL DIFF FLAG SCAN; Mean Corpuscular HGB Conc 30.1 g/dl (31.0-35.0); Mean Corpuscular Hemoglobin 26.9 pg (27.0-33.0); Mean Corpuscular Volume 89.4 fL (80.0-98.0); Mean Platelet Volume 9.7 fL (9.4-12.3); Monocytes Absolute Auto 0.1 X10*3/uL (0.1-1.2); Monocytes Percent Auto 2.2 % (2-11); Neutrophils Absolute Auto 4.9 x10*3/uL (2.0-8.3); Neutrophils Percent Auto 90.3 % (45-73); Platelet Count 102 X10*3/uL (160-400); Red Blood Count 4.35 X10*6/uL (4.20-5.50); Red Cell Distribution Width 14.8 % (11.0-16.0); SCAN SMEAR FLAG 1; White Blood Count 5.5 X10*3/uL (4.8-10.8)
[2022-09-07] MEDS: Heparin Sodium,Porcine 5,000 UNIT/ML VIAL 5000 UNIT SUBCUT (05:43)
[2022-09-07] MEDS: methylPREDNISolone Sod Succ 40 MG/ML VIAL IVPUSH ×3 (05:44→21:02)
[2022-09-07] MEDS: Pantoprazole Sodium 40 MG/10 ML VIAL IVPUSH (05:44)
[2022-09-07 06:22] LABS: Lactic Acid 0.7 mmol/L (0.5-2.0)
[2022-09-07 06:28] LABS: Alanine Aminotransferase 15 U/L (0-31); Alkaline Phosphatase 75 U/L (39-117); Anion Gap 10 (12-20); Aspartate Amino Transferase 9 U/L (5-31); Bilirubin Total 0.5 mg/dL (0.0-1.0); Blood Urea Nitrogen 30 mg/dL (9-16); Calcium 9.2 mg/dL (8.4-10.2); Carbon Dioxide 34 mmol/L (22-29); Chloride 107 mmol/L (96-108); Creatinine Clr Calc Pharmacy 31.4; Estimated Glomerular Filt Rate 37; Glucose Random 183 mg/dL (60-115); Potassium 4.6 mmol/L (3.3-5.1); Sodium 146 mmol/L (135-145); Total Protein 5.3 g/dL (6.5-8.0)
[2022-09-07 07:45] LABS: SLIDE REVIEW VERIFIED
[2022-09-07] MEDS: Dextrose 5 % and Lactated Ring 1,000 ML 100 ML IVCONT (08:37)
[2022-09-07] MEDS: levETIRAcetam in NaCl (iso-os) 500 MG/100 ML PIGGYBACK 400 MG IV (08:43)
[2022-09-07] MEDS: Albumin Human 25 % 100 ML IV ×2 (08:45→09:35)
[2022-09-07] MEDS: Loratadine 10 MG TABLET PO (08:49)
[2022-09-07] MEDS: polyethylene glycoL 3350 17 GM POWD.PACK PO ×2 (08:49→21:02)
[2022-09-07] MEDS: Escitalopram Oxalate 10 MG TABLET PO (08:49)
[2022-09-07] MEDS: Clopidogrel Bisulfate 75 MG TABLET PO (08:49)
[2022-09-07] MEDS: Docusate Sodium 100 MG CAPSULE PO ×2 (08:49→21:02)
[2022-09-07] MEDS: Albuterol Sulfate (0.083%) 2.5 MG/3 ML VIAL.NEB INHALE (12:29)
[2022-09-07] MEDS: Azithromycin 500 MG in 0.9 % Sodium Chloride 250 ML 125 MG IV (13:13)
[2022-09-07] MEDS: TiZANidine HCL 4 MG TABLET PO (14:48)
[2022-09-07] MEDS: Oseltamivir Phosphate 30 MG CAPSULE PO (18:39)
--- NOTE | 2022-09-07 19:11 | PC.NURSE ---
PT TITRATED ON D5LR PER MD ORDER, CURRENTLY RUNNING AT 50ML/HR. PT TITRATED AND SWITCHED BETWEEN BIPAP AND HFNC TOLERATED. PATIENT CURRENTLY TOLERATING HFNC. PATIENT REFUSED HEPARIN, INFORMED ON THE USE OF HEPARIN, CONTINUED TO REFUSE. PT BATHED, ROTATED Q2HR, INFORMED ON HEALTH STATUS.
--- NOTE | 2022-09-07 20:42 | P.PNCC_ITS ---
Subjective Subjective Date of Service: 09/07/22 Interval History: Mrs. Francisco was transferred to ICU last night with hypercarbic resp failure. The patient is an 82 yo F w PMHx of seizures on Keppra, prior stroke with left- sided hemiparesis, former smoker with COPD not on oxygen, CMOP, constipation, hypothyroidism, HLD, bedridden and wheelchair bound.? Previous labs in [facility] show mildly elevated bicarb levels, suggesting chronic CO2 retention (she is not on diuretics).? But there are no prior blood gasses. The patient is a long time SNF resident.? Needs assistance for all ADLs.? She can eat by herself.? She has no family, her HCP is a friend, Yvonne Woods, who happens to be one of our ICU nurses here at [facility].? The patient was BIBA to the ED yest morning bec of hypoxemia at the retirement.? She was reportedly satting 75% on room air.? She had previously tested positive for the flu and was diagnosed there is having pneumonia. On admission to the ED, she was afebrile, HR 100, BP 147/76, RR 24, Sat 95% on 4L NC.? She was alert and oriented.? She had bilateral diffuse expiratory wheezing with prolonged expiration.? Labs in the ED notable for WBC 11, platelets 135 (previously normal), Na 148, BUN/creat 19/1.0, bicarb 38, normal LFTs, alb 3.7, BNP 286 (no prior levels), flat trops, normal lactate.? Resp virus panel was positive for influenza A, negative for influenza B, RSV, and COVID. CXR showed marked thoracic dextroscoliosis, low lung vols, w patchy, bilateral diffuse interstitial prominence, and a small left basilar hazy density araiza ggesting pleural fluid, atelectasis, and/or focal infiltrate. ??Overall the film was most c/w pulmonary edema with small left effusion.? EKG notable for ST, LVH, old IWMI. Chest CT showed ill-defined groundglass and interlobular septal thickening in the lung apices suggesting pulmonary edema, with dependent consolidation in both lungs w near complete right middle lobe collapse. ?Abdominal CT showed a large desiccated stool ball within the rectum measuring at 10.5 cm w rectal wall thickening and infiltration of the perirectal fat suspicious for stercoral colitis.? 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 3 mm nonobstructing right upper pole renal stone.? There was a 2.9 cm cystic lesion in the pancreatic neck.? Every other year x 2 follow-up MR/MRCP with contrast was recommended. The patient was given 1L NS in the ED, along w Tamiflu, albuterol, Solu-Medrol, Rocephin, azithromycin and 2 Fleet enemas.? She was admitted for further treatment of acute hypoxemic respiratory failure secondary to influenza A pneumonia.? In the late afternoon yesterday, she was noted to be quite letheragic.? An ABG showed 7.21/91/77/+5.? She was put on rescue BiPAP and transferred to the ICU. On BiPAP, the patient?s mental status gradually improved.? Subsequent VBG about 10pm showed 7.31/67/+5.? BUN/creat were up to 27/1.4.? She was put on D5W for hydration and for the high sodium. ?She stayed on BiPAP overnite.? VBG this morning showed 7.34/62/+6.? This morning she was completely awake and oriented.? She easily went onto HFNC 40L/60%, with Sat 94%.? About noon she was more somnolent.? A repeat ABG on the HFNC showed 7.31/70/57/+8.? She was put back on BiPAP for a couple of hours, and has been rotating BiPAP with the HFNC. On my exam this evening, she is fully awake and oriented and quite animated, a delight to talk with.? Breathing easy w RR 16 on HFNC 50L/50%, with Sat 94%.? HR 87, BP 129/54.? Afebrile this entire hosp stay.? No JVD at about 30?.? Coarse BS, maybe a few coarse crackles on auscultation.? RRR, soft heart tones, I heard no murmur or gallop.? Abdomen obese, benign.? Mild edema at most; redundant tissues make it hard to assess central edema.? She has severe left-sided hemiparesis, with both upper and lower extremities barely antigravity.? Speech is normal.? 1/5 motor at most.? Ht 5?, wt 82kg, BMI 36. LABORATORY DATA:? Below.? Notably, platelet count is down to 102,000. Sodium is down to 146, BUN/creatinine down to 30/1.36.? Albumin is 3.0. IMPRESSION: 1. Underlying severe left hemiparesis.? 2? previous stroke. 2. Obesity.? She may well have BERNARD and/or OHS.? 3. Underlying COPD with chronic CO2 retention.? Probably runs baseline pCO2 about 60.? Given the above, she might benefit from nighttime CPAP or BiPAP.? Pulmon/sleep consult might be warranted. 4. Acute influenza A.? Continue Tamiflu. 5. Acute hypoxemic resp failure.? Presumably 2? above, altho the CXR and CT are not overly impressive. 6. Acute hypercarbic resp failure.? Possibly 2? COPD exacerbation and/or a consequence of influenza. 7. Metabolic encephalopathy.? CO2 narcosis, 2? above.? Resolved. 8. Hypernatremia.? Resolving with D5W infusion. 9. Metabolic alkalosis.? Start on Diamox. 10. History of seizures on Keppra 11.Constipation and rectal impaction 12. Cystic lesion of the pancreatic neck in need of follow-up 13. Right kidney nonobstructive nephropathy Critical care time (including full chart review; mult visits to bedside to asses s mental and resp status):? 90 min. Critical Care Time (minutes): 90 Physical Exam Vital Signs: Vital Signs: Last Vital Signs Temp 97.7 F 09/07/22 20:00 Pulse 76 09/07/22 20:00 Resp 16 09/07/22 20:00 BP 130/58 L 09/07/22 20:00 Pulse Ox 95 09/07/22 20:00 O2 Del Method 09/07/22 20:00 O2 Flow Rate 50 09/07/22 20:00 FiO2 50 09/07/22 20:00 Oxygen Flow Rate 5 09/06/22 10:06 BMI result Body Mass Index 35.5 Objective Data Labs CBC & Chem 7: 09/07/22 05:09 09/07/22 06:02 Labs: Laboratory Results - last 24 hr 09/06/22 09/06/22 09/06/22 22:11 22:11 22:11 WBC 7.7 RBC 4.67 Hgb 12.6 Hct 42.1 MCV 90.1 MCH 27.0 MCHC 29.9 L RDW 15.2 Plt Count 118 L MPV 8.8 L Immature Gran % (Auto) Neut % (Auto) Lymph % (Auto) [place] % (Auto) Eos % (Auto) Baso % (Auto) Lymph # (Auto) [place] # (Auto) Eos # (Auto) Baso # (Auto) Abs Immat Gran (auto) Absolute Neuts (auto) Absolute Nucleated RBC 0.000 Nucleated RBC % (auto) 0.0 Smear Tech's Comments VBG pH VBG pCO2 VBG pO2 VBG HCO3 VBG O2 Saturation VBG Base Excess Sodium 148 H Potassium 4.9 Chloride 106 Carbon Dioxide 36 H Anion Gap 11 L BUN 27 H Creatinine 1.43 H Estim Creat Clear Calc 29.1 Estimated GFR 35 Random Glucose 196 H Lactic Acid 1.5 Calcium 9.5 D Total Bilirubin AST ALT Alkaline Phosphatase Total Protein Albumin Urine Color Urine Appearance Urine pH Ur Specific [place] Urine Protein Urine Glucose (UA) Urine Ketones Urine Blood Urine Nitrite Ur Leukocyte Esterase Urine RBC Urine WBC Ur Squamous Epith Cells Ur Transition Epith Cell Ur Renal Epithelial Cell Urine Bacteria Hyaline Casts Granular Casts 09/06/22 09/07/22 09/07/22 22:15 03:26 05:09 WBC 5.5 RBC 4.35 Hgb 11.7 L Hct 38.9 MCV 89.4 MCH 26.9 L MCHC 30.1 L RDW 14.8 Plt Count 102 L MPV 9.7 Immature Gran % (Auto) 0.9 H Neut % (Auto) 90.3 H Lymph % (Auto) 6.6 L [place] % (Auto) 2.2 Eos % (Auto) 0.0 Baso % (Auto) 0.0 Lymph # (Auto) 0.4 L [place] # (Auto) 0.1 Eos # (Auto) 0.0 Baso # (Auto) 0.0 Abs Immat Gran (auto) 0.05 H Absolute Neuts (auto) 4.9 Absolute Nucleated RBC 0.000 Nucleated RBC % (auto) 0.0 Smear Tech's Comments VERIFIED VBG pH 7.31 L VBG pCO2 67 VBG pO2 67 VBG HCO3 34 H VBG O2 Saturation 94.0 VBG Base Excess 5.6 Sodium Potassium Chloride Carbon Dioxide Anion Gap BUN Creatinine Estim Creat Clear Calc Estimated GFR Random Glucose Lactic Acid Calcium Total Bilirubin AST ALT Alkaline Phosphatase Total Protein Albumin Urine Color Dark Yellow Urine Appearance Cloudy Urine pH 5.0 Ur Specific [place] 1.020 Urine Protein 100 (2+) H Urine Glucose (UA) Negative Urine Ketones Negative Urine Blood Small (1+) H Urine Nitrite Negative Ur Leukocyte Esterase Negative Urine RBC 6-10 H Urine WBC 0-5 Ur Squamous Epith Cells 6-10 Ur Transition Epith Cell Present Ur Renal Epithelial Cell Present Urine Bacteria None Seen Hyaline Casts 6-10 Granular Casts Present 09/07/22 09/07/22 09/07/22 05:20 06:02 06:02 WBC RBC Hgb Hct MCV MCH MCHC RDW Plt Count MPV Immature Gran % (Auto) Neut % (Auto) Lymph % (Auto) [place] % (Auto) Eos % (Auto) Baso % (Auto) Lymph # (Auto) [place] # (Auto) Eos # (Auto) Baso # (Auto) Abs Immat Gran (auto) Absolute Neuts (auto) Absolute Nucleated RBC Nucleated RBC % (auto) Smear Tech's Comments VBG pH 7.34 VBG pCO2 62 VBG pO2 72 VBG HCO3 33 H VBG O2 Saturation 94.0 VBG Base Excess 6.2 Sodium 146 H Potassium 4.6 Chloride 107 Carbon Dioxide 34 H Anion Gap 10 L BUN 30 H Creatinine 1.36 Estim Creat Clear Calc 31.4 Estimated GFR 37 Random Glucose 183 H Lactic Acid 0.7 Calcium 9.2 Total Bilirubin 0.5 AST 9 ALT 15 Alkaline Phosphatase 75 Total Protein 5.3 L Albumin 3.0 L Urine Color Urine Appearance Urine pH Ur Specific [place] Urine Protein Urine Glucose (UA) Urine Ketones Urine Blood Urine Nitrite Ur Leukocyte Esterase Urine RBC Urine WBC Ur Squamous Epith Cells Ur Transition Epith Cell Ur Renal Epithelial Cell Urine Bacteria Hyaline Casts Granular Casts Microbiology Microbiology Results: Microbiology 09/06/22 11:19 Blood - Venous Blood Culture - Preliminary No growth after 24 hours. 09/06/22 10:54 Blood - Venous Blood Culture - Preliminary No growth after 24 hours. Quality Stroke Does the patient have a stroke diagnosis?: No VTE Prior VTE?: No VTE Risk Level:: Medical - moderate - high VTE Device Contraindication: Treatment Not Indicated VTE Drug Contraindication: N/A - Med Ordered Critical Care Time Critical Care Time (minutes): 90
[2022-09-07] MEDS: levETIRAcetam 250 MG in 0.9 % Sodium Chloride 100 ML 410 MG IV (21:01)
[2022-09-07] MEDS: Atorvastatin Calcium 80 MG TABLET PO (21:02)
[2022-09-07] MEDS: Acetaminophen 325 MG TABLET 650 MG PO (21:02)
[2022-09-07] MEDS: bisacodyL 10 MG SUPP.RECT PR (22:07)
[2022-09-07] MEDS: acetaZOLAMIDE sodium 500 MG VIAL IVPUSH (22:14)
[2022-09-07] MEDS: Mineral OiL enema 133 ML ENEMA PR (23:25)
[2022-09-08] VITALS (31 sets, daily range): BP systolic 105–141; BP diastolic 38–70; PULSE 48–95; RESP 16–24; TEMP 36.5–37.2; O2SAT 92–97; BMI 35.2
[2022-09-08] MEDS: Albuterol/Iprat 2.5/0.5MG 3 ML AMPUL.NEB INHALE ×4 (03:12→18:59)
--- NOTE | 2022-09-08 05:17 | PC.NURSE ---
assumed care at 1900 pt a&O, on high flow nasal cannula tolerating well. Pa attempt to manually disimpact pt, unsuccessful, new order for suppository and , mineral enema. pt had two large BMs. pt able to wear bipap for small amount of time overnight but then returned to high flow nasal cannula.
[2022-09-08 05:42] LABS: VBG Base Excess 6.2 mmol/L; VBG HCO3 33 mmol/L (22-26); VBG pCO2 60 mmHg; VBG pH 7.34 (7.32-7.43); VBG pO2 39 mmHg
[2022-09-08] MEDS: methylPREDNISolone Sod Succ 40 MG/ML VIAL IVPUSH ×2 (05:42→12:48)
[2022-09-08] MEDS: Heparin Sodium,Porcine 5,000 UNIT/ML VIAL 5000 UNIT SUBCUT (05:42)
[2022-09-08] MEDS: Pantoprazole Sodium 40 MG/10 ML VIAL IVPUSH (05:42)
[2022-09-08] MEDS: Oseltamivir Phosphate 30 MG CAPSULE PO ×2 (05:42→17:12)
[2022-09-08] MEDS: Levothyroxine Sodium 150 MCG TABLET PO (05:42)
[2022-09-08 06:10] LABS: Albumin Level 3.5 g/dL (3.5-5.0); Anion Gap 13 (12-20); Blood Urea Nitrogen 37 mg/dL (9-16); Calcium 9.2 mg/dL (8.4-10.2); Carbon Dioxide 29 mmol/L (22-29); Chloride 110 mmol/L (96-108); Creatinine Clr Calc Pharmacy 28.1; Estimated Glomerular Filt Rate 33; Glucose Random 168 mg/dL (60-115); Magnesium 1.8 mg/dL (1.6-2.6); Phosphorus 2.3 mg/dL (2.7-4.5); Sodium 147 mmol/L (135-145)
[2022-09-08 06:16] LABS: B Type Natriuretic Peptide 239 pg/mL (<100)
[2022-09-08 07:33] LABS: Basophils Percent Auto 0.1 % (0-2); Hematocrit 38.2 % (37.0-47.0); Hemoglobin 11.4 g/dl (12.0-16.0); Imm Gran Abs Auto 0.08 X10*3/uL (0.00-0.03); Imm Gran Pct Auto 0.8 % (0.0-0.4); Lymphocytes Absolute Auto 0.4 X10*3/uL (1.2-4.9); Lymphocytes Percent Auto 3.9 % (20-40); MANUAL DIFF FLAG SCAN; Mean Corpuscular HGB Conc 29.8 g/dl (31.0-35.0); Mean Corpuscular Volume 90.5 fL (80.0-98.0); Mean Platelet Volume 10.1 fL (9.4-12.3); Monocytes Absolute Auto 0.4 X10*3/uL (0.1-1.2); Monocytes Percent Auto 3.9 % (2-11); NRBC Pct Auto 0.2 /100WBC (0.0-0.2); Neutrophils Absolute Auto 9.3 x10*3/uL (2.0-8.3); Neutrophils Percent Auto 91.3 % (45-73); Platelet Count 116 X10*3/uL (160-400); Red Blood Count 4.22 X10*6/uL (4.20-5.50); Red Cell Distribution Width 14.8 % (11.0-16.0); SCAN SMEAR FLAG 1; White Blood Count 10.2 X10*3/uL (4.8-10.8)
[2022-09-08 08:00] LABS: SLIDE REVIEW VERIFIED
[2022-09-08] MEDS: polyethylene glycoL 3350 17 GM POWD.PACK PO ×2 (08:28→20:48)
[2022-09-08] MEDS: levETIRAcetam in NaCl (iso-os) 500 MG/100 ML PIGGYBACK 400 MG IV (08:29)
[2022-09-08] MEDS: acetaZOLAMIDE sodium 500 MG VIAL IVPUSH ×2 (08:29→20:47)
[2022-09-08 08:35] LABS: Venous Blood Gas Refer to POC result
[2022-09-08] MEDS: Docusate Sodium 100 MG CAPSULE PO (08:35)
[2022-09-08] MEDS: Escitalopram Oxalate 10 MG TABLET PO (08:35)
[2022-09-08] MEDS: Clopidogrel Bisulfate 75 MG TABLET PO (08:35)
[2022-09-08] MEDS: Loratadine 10 MG TABLET PO (08:35)
[2022-09-08 09:04] LABS: ABG Base Excess 8.2 mmol/L; ABG HCO3 36 mmol/L (22-26); ABG pCO2 70 mmHg (32-45); ABG pH 7.31 (7.35-7.45); ABG pO2 57 mmHg (83-108)
[2022-09-08 09:18] LABS: ABG Refer to POC result
[2022-09-08] MEDS: Dextrose 5 % and 0.45 % NaCl 1,000 ML 125 ML IVCONT ×2 (10:58→17:09)
[2022-09-08] MEDS: TiZANidine HCL 4 MG TABLET PO (12:49)
[2022-09-08] MEDS: Azithromycin 500 MG in 0.9 % Sodium Chloride 250 ML 125 MG IV (12:50)
--- NOTE | 2022-09-08 14:01 | MHC.CM.PN ---
Attempted to meet with patient in regards to discharge planning. Patient is currently sleeping and on high flow oxygen. Copy of HCP obtained from [facility]. HCP listed is Pretty Ross. T/W is unable to read telephone number on HCP. HCP is not listed as an emergency contact. Attempted to speak to primary contact, Christie via telephone at [phone]. Left voicemail requesting return telephone call and explaining IMM will be sent via certified mail. Case manaagement assessment completed using medical record. Patient is a bed hold at [facility]. Anticipate she will return via BLS when medically stable. Continue to monitor for d/c needs.
--- NOTE | 2022-09-08 16:25 | P.PNCC_ITS ---
Subjective Subjective Date of Service: 09/08/22 Interval History: Mrs. Francisco was transferred to ICU Sep 06 with hypercarbic resp failure. The patient is an 82 yo F w PMHx of prior stroke with left-sided hemiparesis, seizures on Keppra, former smoker with COPD not on oxygen, CMOP, chronic constipation, hypothyroidism, HLD, bedridden and wheelchair bound.? Previous labs in [facility] show mildly elevated bicarb levels, suggesting chronic CO2 retention (she is not on diuretics).? But there are no prior blood gasses.? I note that the patient is on prednisone, 60 mg daily.? She tells me that is for a rash she has on her chest (looks like eczema). The patient is a long time SNF resident.? Needs assistance for all ADLs.? She ca n eat by herself.? She has no family, her HCP is a friend, Yvonne Morenolila, who happens to be one of our ICU nurses here at [facility].? The patient was BIBA to the ED on Sep 06 bec of hypoxemia at the halfway.? She was reportedly satting 75% on room air.? She had previously tested positive for the flu and was diagnosed there as having pneumonia. On admission to the ED, she was afebrile, HR 100, BP 147/76, RR 24, Sat 95% on 4L NC.? She was alert and oriented.? She had bilateral diffuse expiratory wheezing with prolonged expiration.? Labs in the ED notable for WBC 11, platelets 135 (previously normal), Na 148, BUN/creat 19/1.0, bicarb 38, normal LFTs, alb 3.7, BNP 286 (no prior levels), flat trops, normal lactate.? Resp virus panel was positive for influenza A, negative for influenza B, RSV, and COVID. CXR showed marked thoracic dextroscoliosis, low lung vols, w patchy, bilateral diffuse interstitial prominence, and a small left basilar hazy density suggesting pleural fluid, atelectasis, and/or focal infiltrate. ??Overall the film was most c/w pulmonary edema with small left effusion.? EKG notable for ST, LVH, old IWMI. Chest CT showed ill-defined groundglass and interlobular septal thickening in the lung apices suggesting pulmonary edema, with dependent consolidation in both lungs w near complete right middle lobe collapse.? Abdominal CT showed a large desiccated stool ball within the rectum measuring at 10 cm w rectal wall thickening and infiltration of the perirectal fat suspicious for stercoral colitis.? 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 3 mm nonobstructing right upper pole renal stone.? There was a 2.9 cm cystic lesion in the pancreatic neck.? Every other year x 2 follow-up MR/MRCP with contrast was recommended. In the ED, the patient was given fluids, Tamiflu, albuterol, Solu-Medrol, Rocephin, azithromycin and two Fleets enemas.? She was admitted for further treatment of acute hypoxemic respiratory failure secondary to influenza A pneumonia.? In the late afternoon, she was noted to be quite letheragic.? An ABG showed 7.21/91/77/+5.? She was put on rescue BiPAP and transferred to the ICU. On BiPAP, the patient?s mental status gradually improved.? Subsequent VBG about 10pm showed 7.31/67/+5.? BUN/creat were up to 27/1.4.? She was put on D5W for hydration and for the high sodium.? She stayed on BiPAP overnite.? VBG next morning (yesterday) showed 7.34/62/+6.? She was completely awake and oriented.? Easily went onto HFNC 40L/60%, with Sat 94%.? Later yesterday she went back and forth betw BiPAP and HFNC.? She was started on Diamox for metabolic alkalosis.? Overnight last night she was on BiPAP for only three hours, otherwise has been on HFNC since 6pm yesterday.? She had a couple of large bowel movements last night. On exam today, she is fully awake, oriented, and animated, altho sometimes not fully appropriate.? Breathing easy w RR 25 on HFNC 50L/40%, with Sat 94%.? VBG this morning 7.34/60/+6 (on Diamox).? HR 88, BP 115/48.? Afebrile this entire hosp stay.? No JVD at about 30?.? Chest is completely CTA.? RRR, soft heart tones, I heard no murmur or gallop.? Abdomen obese, benign.? Trivial edema; redundant tissues make it hard to assess central edema.? She has severe left-sided hemiparesis, with both upper and lower extremities barely antigravity.? 1/5 motor at most.? Speech is normal.? Ht 5?, wt 82kg, BMI 36. LABORATORY DATA:? Below.? Notably, platelet count is up. Sodium is up to 147, ?BUN/creatinine up to 37/1.5.? Potassium up to 5.0, phosphorus only 2.3, magnesium 1.8.? BNP down to 239. ADDENDUM:? ABG done 1829ite, on HFNC 50L/40%:? 7.27/62/51/1.5.? SaO2 81%.? SpO2 was 95%.? We redrew the ABG (to make sure the first one wasn?t venous)? Second ABG showed 7.29/60/60/+2, w SaO2 89%, SpO2 92%. IMPRESSION: 1. Underlying severe left hemiparesis.? 2? previous stroke. 2. Obesity.? She may well have BERNARD and/or OHS.? At this point, I recommend that she sleep with CPAP or BiPAP.? I have written for nighttime BiPAP 14/5/40%. 3. Underlying COPD with chronic CO2 retention.? Probably runs baseline PaCO2 50- 60.? Given the above, she might benefit from nighttime CPAP or BiPAP.? Pulmon/sleep consult might be warranted. 4. Acute influenza A.? Continue Tamiflu. 5. Acute hypoxemic resp failure.? Presumably 2? influenza, altho the CXR and CT are not overly impressive.? No reason to think that she has bacterial pneumonia.? Currently on ceftriaxone and Zithromax.? Will d/c the ceftriaxone.? Continue Zithromax to finish a 5-day course.? Elevated BNP suggests that she might have some mild heart failure.? I ordered an echo. 6. Acute hypercarbic resp failure.? Possibly 2? COPD exacerbation and/or a consequence of influenza.? Continue BDs.? She has no wheezing, w normal exp phase.? We?ll do a fast steroid taper from here.? The patient had been on Prednisone 60 mg daily at the [facility] for a rash.? She tells me that she?s been taking that for a few months. ?I will d/c the solumedrol 40 mg q8h that we have her on and put her on Prednisone 60 mg daily.? Would suggest tapering that from there and seeing what happens to her rash. 7. Metabolic encephalopathy.? CO2 narcosis.? Resolved. 8. Hypernatremia.? Resolving with D5W infusion. 9. ANITA.? Probably hypovolemia.? Now on D5 1/2NS at 100cc/hr. 10. Metabolic alkalosis.? Started on Diamox.? Last dose will be tonite. 11. Hypophosphatemia 12. History of seizures on Keppra 13.Constipation and rectal impaction.? Resolved with meds and digitalization.? W e have her now on Colace and Miralax.? Might need something stronger.? It?s imperative that she doesn?t go much longer than 24 hrs without a BM. 14. Cystic lesion of the pancreatic neck in need of follow-up 15. Right kidney nonobstructive nephropathy 16. Rash on chest.? ? Eczema.? On Prednisone, as noted above. Stable for transfer to Med Surg, with continuous SpO2 monitoring.? Will sign out to hospitalists. Critical Care Time (minutes): 0 Physical Exam Vital Signs: Vital Signs: Last Vital Signs Temp 98.1 F 09/08/22 16:01 Pulse 93 09/08/22 16:01 Resp 20 09/08/22 16:01 BP 105/38 L 09/08/22 16:01 Pulse Ox 93 09/08/22 16:01 O2 Del Method 09/08/22 16:01 O2 Flow Rate 50 09/08/22 16:01 FiO2 60 09/08/22 16:01 Oxygen Flow Rate 5 09/06/22 10:06 BMI result Body Mass Index 35.2 Objective Data Labs CBC & Chem 7: 09/08/22 07:24 09/08/22 05:25 Labs: Laboratory Results - last 24 hr 09/07/22 09/08/22 09/08/22 11:51 05:25 05:25 WBC RBC Hgb Hct MCV MCH MCHC RDW Plt Count MPV Immature Gran % (Auto) Neut % (Auto) Lymph % (Auto) [place] % (Auto) Eos % (Auto) Baso % (Auto) Lymph # (Auto) [place] # (Auto) Eos # (Auto) Baso # (Auto) Abs Immat Gran (auto) Absolute Neuts (auto) Absolute Nucleated RBC Nucleated RBC % (auto) Smear Tech's Comments O2 Saturation 88.0 ABG pH at Pt Temp 7.31 L ABG pCO2 at Pt Temp 70 H* ABG pO2 at Pt Temp 57 L ABG HCO3 36 H ABG Base Excess (Actual) 8.2 VBG pH VBG pCO2 VBG pO2 VBG HCO3 VBG O2 Saturation VBG Base Excess Sodium 147 H Potassium 5.0 Chloride 110 H Carbon Dioxide 29 Anion Gap 13 BUN 37 H Creatinine 1.51 H Estim Creat Clear Calc 28.1 Estimated GFR 33 Random Glucose 168 H Calcium 9.2 Phosphorus 2.3 L Magnesium 1.8 B-Natriuretic Peptide 239 H Albumin 3.5 09/08/22 09/08/22 05:34 07:24 WBC 10.2 RBC 4.22 Hgb 11.4 L Hct 38.2 MCV 90.5 MCH 27.0 MCHC 29.8 L RDW 14.8 Plt Count 116 L MPV 10.1 Immature Gran % (Auto) 0.8 H Neut % (Auto) 91.3 H Lymph % (Auto) 3.9 L [place] % (Auto) 3.9 Eos % (Auto) 0.0 Baso % (Auto) 0.1 Lymph # (Auto) 0.4 L [place] # (Auto) 0.4 Eos # (Auto) 0.0 Baso # (Auto) 0.0 Abs Immat Gran (auto) 0.08 H Absolute Neuts (auto) 9.3 H Absolute Nucleated RBC 0.020 H Nucleated RBC % (auto) 0.2 Smear Tech's Comments VERIFIED O2 Saturation ABG pH at Pt Temp ABG pCO2 at Pt Temp ABG pO2 at Pt Temp ABG HCO3 ABG Base Excess (Actual) VBG pH 7.34 VBG pCO2 60 VBG pO2 39 VBG HCO3 33 H VBG O2 Saturation 69.0 VBG Base Excess 6.2 Sodium Potassium Chloride Carbon Dioxide Anion Gap BUN Creatinine Estim Creat Clear Calc Estimated GFR Random Glucose Calcium Phosphorus Magnesium B-Natriuretic Peptide Albumin Microbiology Microbiology Results: Microbiology 09/06/22 11:19 Blood - Venous Blood Culture - Preliminary No growth after 48 hours. 09/06/22 10:54 Blood - Venous Blood Culture - Preliminary No growth after 48 hours. Quality Stroke Does the patient have a stroke diagnosis?: No VTE Prior VTE?: No VTE Risk Level:: Medical - moderate - high VTE Device Contraindication: Treatment Not Indicated VTE Drug Contraindication: N/A - Med Ordered
[2022-09-08 18:54] LABS: ABG Base Excess 1.5 mmol/L; ABG HCO3 29 mmol/L (22-26); ABG pCO2 62 mmHg (32-45); ABG pH 7.27 (7.35-7.45); ABG pO2 51 mmHg (83-108)
[2022-09-08 19:24] LABS: ABG Base Excess 1.8 mmol/L; ABG HCO3 29 mmol/L (22-26); ABG pCO2 60 mmHg (32-45); ABG pH 7.29 (7.35-7.45); ABG pO2 60 mmHg (83-108)
[2022-09-08] MEDS: Magnesium Sulfate/D5W 1 GM/100 ML PIGGYBACK IV (19:31)
[2022-09-08] MEDS: Sodium,Potassium Phosphates POWD.PACK 2 PACKET PO (19:34)
[2022-09-08] MEDS: Atorvastatin Calcium 80 MG TABLET PO (20:47)
[2022-09-08] MEDS: levETIRAcetam 250 MG in 0.9 % Sodium Chloride 100 ML 410 MG IV (20:58)
[2022-09-09] VITALS (13 sets, daily range): BP systolic 115–155; BP diastolic 56–74; PULSE 68–98; RESP 16–22; TEMP 36.6–37.4; O2SAT 69–98; BMI 38.7
[2022-09-09 00:01] LABS: ABG Refer to POC result
[2022-09-09] MEDS: Dextrose 5 % and 0.45 % NaCl 1,000 ML 100 ML IVCONT (02:29)
[2022-09-09] MEDS: Albuterol/Iprat 2.5/0.5MG 3 ML AMPUL.NEB INHALE ×4 (04:09→19:21)
[2022-09-09] MEDS: Pantoprazole Sodium 40 MG/10 ML VIAL IVPUSH (05:22)
[2022-09-09] MEDS: Oseltamivir Phosphate 30 MG CAPSULE PO ×2 (05:22→18:02)
[2022-09-09 06:29] LABS: VBG Base Excess 1.1 mmol/L; VBG HCO3 28 mmol/L (22-26); VBG pCO2 56 mmHg; VBG pO2 60 mmHg
[2022-09-09 06:33] LABS: Venous Blood Gas Refer to POC result
[2022-09-09 06:42] LABS: Hematocrit 38.8 % (37.0-47.0); Hemoglobin 11.4 g/dl (12.0-16.0); Mean Corpuscular HGB Conc 29.4 g/dl (31.0-35.0); Mean Corpuscular Volume 91.9 fL (80.0-98.0); Mean Platelet Volume 10.2 fL (9.4-12.3); Platelet Count 136 X10*3/uL (160-400); Red Blood Count 4.22 X10*6/uL (4.20-5.50); White Blood Count 10.9 X10*3/uL (4.8-10.8)
--- NOTE | 2022-09-09 07:00 | CA_ITS ---
Transthoracic Echocardiogram Patient (Last, First, Middle): Maricarmen Francisco, Gender: Female Date of : 1940 Age: 82 Procedure Date: 09/09/2022 Procedure Type: Transthoracic [place] [facility] [place]: 152.4 cm Weight: 89.81 kg BSA: 1.86 m2 Heart Rate: bpm BP: 148 / 69 mmHg Sports Broadcaster: TO Referring MD: Kervin Adhikari MD Fuel Cell Designer: Sarthak Thornton MD Symptoms: hypoxemia with elevated BNP Study Quality: Technically Difficult, definity refused ECG Rhythm: Sinus Conclusions: - 1. Technically limited study due to off axis views 2. [id number] LV systolic dysfunction with impaired relaxation filling pattern 3. Limited visualization cardiac valves with cardiac valvular Dopplers within normal limits 4. No gross pericardial effusion Findings Procedure Information The patient declines contrast. Left Ventricle Normal left ventricular cavity size. The left ventricular systolic function is mild to moderately decreased. The visually estimated ejection fraction is between 40-45%. Regional wall motion abnormalities can not be excluded due to suboptimal endocardial definition. Spectral Doppler is indicative of an impaired relaxation filling pattern. E/E prime ratio is between 8 and 15 consistent with indeterminate filling pressures. Right Ventricle Normal right ventricular cavity size. Atria The left atrium was not well visualized. Interatrial shunt cannot be excluded. The right atrium was not well visualized. Aortic Valve Normal aortic valve structure and function. There is no aortic valve stenosis. There is no aortic valve regurgitation. Mitral Valve There is mild anterior and posterior mitral leaflet thickening. There is trace mitral valve regurgitation. There is no mitral valve stenosis. Pulmonic Valve The pulmonic valve was not well visualized. Tricuspid Valve Normal tricuspid valve structure. There is trace tricuspid valve regurgitation. The right ventricular systolic pressure is not calculated. Great Vessels The aorta was not well visualized. The pulmonary artery was not well visualized. Venous The inferior vena cava was not well visualized. The hepatic vein was not well visualized. Pericardium/Pleural There is no evidence of pericardial effusion. Prior Study Comparison No prior study available for comparison. Measurements 2D Linear Measurements LVOT Diam: 2.00 3.0+(-)1.3 cm 2D Systolic Function EF 4C: 47.60 >55% Mitral Valve MV Pk E: 0.84 MV PK A: 1.09 MV Decel Time: 171.00 E/A: 0.80 E'Lateral: 7.29 E'Medial: 6.09 E/E' Med: 13.90 E/E' Lat: 11.60 PHT: 50.00 MVA PHT: 4.40 Decel [place]: 4.93 Aortic Valve AoV Pk Braxton: 1.51 AoV Mn Braxton: 1.05 AoV VTI: 0.29 AoV Pk Grad: 9.00 Aov Mn Grad: 5.00 RAFAELA Cont.VTI: 1.94 LVOT LVOT Pk Braxton: 0.98 LVOT Mn Braxton: 0.64 LVOT VTI: 0.18 LVOT Pk Grad: 4.00 LVOT Mn Grad: 2.00 LVOT Diam: 2.00 LVOT Area: 3.14 Diastolic Function MV Pk E: 0.84 MV Pk A: 1.09 E/A: 0.80 E'Medial: 6.09 E/E' Med: 13.90 E' Laterial: 7.29 E/E' Lat: 11.60 Right Ventricle TAPSE (mm): 18.00 TVS' Braxton: 10.90 Tricuspid Valve TR Pk Braxton: 2.79 TR Pk Grad: 31.00 Great Vessels Aorta Sinus of Valsalva: 3.19 2.0-3.[address] [place]: 2.41 1.7-3.4 cm Ao Asc: 3.20 2.1-3.4 cm Updated in Other Vendor System with Status of Final Sarthak Thornton MD electronically signed on 09/10/2022 8:40:43 AM with status of Final
[2022-09-09 07:08] LABS: Anion Gap 9 (12-20); Blood Urea Nitrogen 35 mg/dL (9-16); Calcium 9.3 mg/dL (8.4-10.2); Carbon Dioxide 33 mmol/L (22-29); Chloride 112 mmol/L (96-108); Creatinine Clr Calc Pharmacy 28.6; Estimated Glomerular Filt Rate 34; Glucose Random 120 mg/dL (60-115); Magnesium 1.7 mg/dL (1.6-2.6); Phosphorus 2.1 mg/dL (2.7-4.5); Potassium 4.1 mmol/L (3.3-5.1); Sodium 150 mmol/L (135-145)
[2022-09-09] MEDS: polyethylene glycoL 3350 17 GM POWD.PACK PO ×2 (07:53→19:47)
[2022-09-09] MEDS: Loratadine 10 MG TABLET PO (07:54)
[2022-09-09] MEDS: levETIRAcetam in NaCl (iso-os) 500 MG/100 ML PIGGYBACK 400 MG IV (07:54)
[2022-09-09] MEDS: Escitalopram Oxalate 10 MG TABLET PO (07:54)
[2022-09-09] MEDS: Docusate Sodium 100 MG CAPSULE PO (07:54)
[2022-09-09] MEDS: Clopidogrel Bisulfate 75 MG TABLET PO (07:54)
[2022-09-09] MEDS: predniSONE 20 MG TABLET 60 MG PO (07:54)
--- NOTE | 2022-09-09 12:12 | P.PNIM_ITS ---
Subjective Subjective Date of Service: 09/09/22 Interval History: Patient awake alert resting comfortably offers no acute complaints denies shortness of breath, no chest pain, tolerating diet with no nausea no vomiting no diarrhea, no abdominal pain, denies headache lightheadedness or dizziness Review of Systems Review of Systems: Yes all other systems are reviewed and are negative Physical Exam Vital Signs: Vital Signs: Last Vital Signs Temp 99.3 F 09/09/22 11:26 Pulse 92 09/09/22 11:26 Resp 20 09/09/22 11:26 BP 155/69 H 09/09/22 11:26 Pulse Ox 90 L 09/09/22 11:26 O2 Del Method 09/09/22 11:26 O2 Flow Rate 50 09/09/22 04:00 FiO2 40 09/09/22 04:00 Oxygen Flow Rate 5 09/06/22 10:06 BMI result Body Mass Index 38.7 Const: Other: General awake alert, resting comfortably in no acute distress. Neck supple no JVD. CVS regular rate rhythm, Respiratory lungs clear to auscultation, no respiratory distress, no wheeze, no rhonchi. Gastrointestinal abdomen soft, nontender, bowel sounds audible, no guarding , no rigidity. Extremities no edema. Neuro speech clear, left hemiparesis. Skin left anterior chest wall hyperemic rash with central scaling distinct margins Psych appropriate affect Objective Data Active Medications Acetaminophen (Acetaminophen 325 Mg Tablet) 650 mg PO Q6H PRN PRN Reason: Pain, Mild (Pain Scale 1-3) Last Admin: 09/07/22 21:02 Dose: 650 mg Documented By: SHERIE Albuterol Sulfate (Albuterol Sulfate (0.083%) 2.5 Mg/3 Ml Vial.Neb) 2.5 mg INHALE RQ4H WHILE AWAKE PRN PRN Reason: wheezing Albuterol/Ipratropium (Albuterol/Iprat 2.5/0.5mg 3 Ml Ampul.Neb) 3 ml INHALE Q6H [facility] Last Admin: 09/09/22 07:52 Dose: 3 ml Documented By: JOS Atorvastatin Calcium (Atorvastatin Calcium 80 Mg Tablet) 80 mg PO BEDTIME [facility] Last Admin: 09/08/22 20:47 Dose: 80 mg Documented By: NICOLE Clopidogrel Bisulfate (Clopidogrel Bisulfate 75 Mg Tablet) 75 mg PO DAILY [facility] Last Admin: 09/09/22 07:54 Dose: 75 mg Documented By: SHARA Docusate Sodium (Docusate Sodium 100 Mg Capsule) 100 mg PO DAILY [facility] Last Admin: 09/09/22 07:54 Dose: 100 mg Documented By: SHARA Escitalopram Oxalate (Escitalopram Oxalate 10 Mg Tablet) 10 mg PO DAILY [facility] Last Admin: 09/09/22 07:54 Dose: 10 mg Documented By: SHARA Fluticasone Propionate (Fluticasone Propionate Nasal 16 Gm [place]) 1 spray NOSTRIL-B Q12H PRN PRN Reason: Allergy Symptoms Heparin Sodium (Porcine) (Heparin Sodium,Porcine 5,000 Unit/Ml Vial) 5,000 unit SUBCUT Q12H [facility] Last Admin: 09/09/22 05:22 Dose: Not Given Documented By: JANI Non-Admin Reason: Patient Refused Hydroxyzine HCl (Hydroxyzine Hcl 25 Mg Tablet) 25 mg PO Q6H PRN PRN Reason: pruitis Azithromycin 500 mg/ Sodium (Chloride) 250 mls @ 125 mls/hr IV Q24H [facility] Stop: 09/12/22 12:59 Last Infusion: 09/08/22 15:17 Dose: 0 mls/hr Documented By: SHARA Levetiracetam 250 mg/ Sodium (Chloride) 102.5 mls @ 410 mls/hr IV BEDTIME [facility] Last Infusion: 09/08/22 21:16 Dose: 0 mls/hr Documented By: NICOLE Levetiracetam (Keppra) 500 mg in 100 mls @ 400 mls/hr IV DAILY [facility] Last Infusion: 09/09/22 08:19 Dose: 0 mls/hr Documented By: SHARA Dextrose (D5w) 1,000 mls @ 100 mls/hr IVCONT .Q10H [facility] Levothyroxine Sodium (Levothyroxine Sodium 150 Mcg Tablet) 150 mcg PO DAILY@0630 [facility] Last Admin: 09/09/22 07:55 Dose: Not Given Documented By: SHARA Non-Admin Reason: Med Not Available Loratadine (Loratadine 10 Mg Tablet) 10 mg PO DAILY [facility] Last Admin: 09/09/22 07:54 Dose: 10 mg Documented By: SHARA Ondansetron HCl (Ondansetron Hcl 4 Mg/2 Ml Vial) 4 mg IVPUSH Q8H PRN PRN Reason: Nausea and Vomiting Oseltamivir Phosphate (Oseltamivir Phosphate 30 Mg Capsule) 30 mg PO BID@0600,1800 [facility] Last Admin: 09/09/22 05:22 Dose: 30 mg Documented By: JANI Pantoprazole Sodium (Pantoprazole Sodium 40 Mg/10 Ml Vial) 40 mg IVPUSH DAILY@0630 [facility] Last Admin: 09/09/22 05:22 Dose: 40 mg Documented By: JANI Pharmacy Consult (Consult Rx Perform Med Rec) 1 each MISCELLANE ONCE PRN PRN Reason: Consult order Polyethylene Glycol (Polyethylene Glycol 3350 17 Gm Powd.Pack) 17 gm PO BID [facility] Last Admin: 09/09/22 07:53 Dose: 17 gm Documented By: SHARA Prednisone (Prednisone 20 Mg Tablet) 60 mg PO DAILY [facility] Last Admin: 09/09/22 07:54 Dose: 60 mg Documented By: SHARA Sodium Chloride (0.9 % Sodium Chloride Flush 3 Ml Syringe) 3 ml IVFLUSH QSHIFT [facility] Last Admin: 09/09/22 07:54 Dose: 3 ml Documented By: SHARA Tizanidine HCl (Tizanidine Hcl 4 Mg Tablet) 4 mg PO DAILY@1300 [facility] Last Admin: 09/08/22 12:49 Dose: 4 mg Documented By: SHARA Labs CBC & Chem 7: 09/09/22 06:15 09/09/22 06:15 Labs: Laboratory Results - last 24 hr 09/08/22 09/08/22 09/09/22 18:48 19:18 06:15 MCV 91.9 MCH 27.0 MCHC 29.4 L RDW 15.0 Plt Count 136 L MPV 10.2 Absolute Nucleated RBC 0.000 Nucleated RBC % (auto) 0.0 O2 Saturation 81.0 89.0 ABG pH at Pt Temp 7.27 L 7.29 L ABG pCO2 at Pt Temp 62 H* 60 H* ABG pO2 at Pt Temp 51 L 60 L ABG HCO3 29 H 29 H ABG Base Excess (Actual) 1.5 1.8 VBG pH VBG pCO2 VBG pO2 VBG HCO3 VBG O2 Saturation VBG Base Excess Anion Gap Estim Creat Clear Calc Estimated GFR Random Glucose Calcium Phosphorus Magnesium 09/09/22 09/09/22 06:15 06:21 MCV MCH MCHC RDW Plt Count MPV Absolute Nucleated RBC Nucleated RBC % (auto) O2 Saturation ABG pH at Pt Temp ABG pCO2 at Pt Temp ABG pO2 at Pt Temp ABG HCO3 ABG Base Excess (Actual) VBG pH 7.30 L VBG pCO2 56 VBG pO2 60 VBG HCO3 28 H VBG O2 Saturation 89.0 VBG Base Excess 1.1 Anion Gap 9 L Estim Creat Clear Calc 28.6 Estimated GFR 34 Random Glucose 120 H Calcium 9.3 Phosphorus 2.1 L Magnesium 1.7 Microbiology Microbiology Results: Microbiology 09/06/22 11:19 Blood Culture - Preliminary Blood - Venous No growth after 48 hours. 09/06/22 10:54 Blood Culture - Preliminary Blood - Venous No growth after 48 hours. Assessment and Plan (1) Hypoxia: Status: Acute (2) Influenza A: Status: Acute (3) Acute exacerbation of chronic obstructive pulmonary disease: Status: Acute Plan Acute hypoxic and hypercarbic respiratory failure secondary to COPD with chronic CO2 retention and influenza A with possible underlying obstructive sleep apnea or obesity hypoventilation syndrome Continue high-flow oxygen and gradually wean patient not on home oxygen, in ICU patient treated with BiPAP currently on BiPAP Consult pulmonology , since patient not on BiPAP will likely need overnight finger oximetry Wean oxygen as tolerated, continue Tamiflu D3, finish 5 day course of ceftriaxone continue azithromycin for total 5 day course Probably has chronic pCO2 of 50-60 On IV Protonix will transition to by mouth Prilosec Obesity likely due to excess calories weight reduction recommended Metabolic encephalopathy due to CO2 narcosis room resolved Hypernatremia, change IV fluid to D5W since sodium bumped to 150,follow bmp, blueprint reader ordered random sodium urine Acute kidney injury stable creatinine 1.48 continue IV fluids push by mouth fluids follow bmp Metabolic alkalosis likely compensatory with CO2 narcosis on Diamox History of seizure on Keppra IV will transition to by mouth Constipation/stool impaction resolved Rash on anterior chest likely eczema is on prednisone 60 mg by mouth daily by her primary care physician, will apply Kenalog cream b.i.d. Status post CVA with left hemiparesis since 2003 bed bound and on wheelchair on Plavix Cystic lesion of the pancreatic neck recommend outpatient follow-up, no pancreatic duct dilatation, background of generalized pancreatic atrophy Hypophosphatemia. ph 2.1, will add Neutra-Phos 1 packet b.i.d.follow ph level in couple days Right kidney non obstructive nephropathy. Code status full code DVT prophylaxis on heparin subQ Patient need continued inpatient hospitalization due to hypoxic and hypercarbic respiratory failure requiring high-flow oxygen and BiPAP Time Spent With Patient Time: Total time managing care of this patient today ____ minutes. Quality Stroke Does the patient have a stroke diagnosis?: No VTE Prior VTE?: No VTE Risk Level:: Medical - moderate - high VTE Device Contraindication: Treatment Not Indicated VTE Drug Contraindication: N/A - Med Ordered
[2022-09-09] MEDS: Azithromycin 500 MG in 0.9 % Sodium Chloride 250 ML 125 MG IV (12:39)
[2022-09-09] MEDS: TiZANidine HCL 4 MG TABLET PO (12:39)
[2022-09-09] MEDS: Dextrose 5 % 1,000 ML 100 ML IVCONT ×2 (12:40→21:29)
--- NOTE | 2022-09-09 13:55 | MHC.CM.PN ---
Patient is from [facility].
--- NOTE | 2022-09-09 14:50 | PM.CNPUL ---
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 She was living at home up until 2 years ago and because of declining health she decided to go to a nursing home skilled care facility?. Needs assistance for all ADLs.? She can eat by herself.? There has been no incidence of pulmonary aspiration. She has no family. Her HCP is a friend, Yvonne Woods, who happens to be one of our ICU nurses here at [facility].? The patient was BIBA to the ED on Sep 06 bec of hypoxemia at the [facility]pc.? She was reportedly satting 75% on room air.? She had previously tested positive for the flu and was diagnosed there as having pneumonia. Patient is grossly obese, and features suggestive of possible obstructive sleep apnea. But she has had no chronic pulmonary disease. And prior to admission over here she has not used oxygen, or any inhalers. She has been sick at the SNF. For a few days. Tested negative for COVID, but positive for influenza A. On arrival at emergency room she was found to be quite hypoxemic, she was somewhat mentally obtunded. And arterial blood gas findings were her grossly abnormal. ( PH 7.21, PCO2 91 PO2 77 HCO3 = 36 ) PATIENT WAS ADMITTED TO INTENSIVE CARE UNIT BECAUSE SHE NEEDED, NIVS . PLUS OXYGEN. After treatment with BiPAP 16/5 cms her pCO2 level has improved , and mental status has also improved to the point that she can have meaningful conversation. She is still requiring HyFlo O2, she she is supposed to use BiPAP at night but, last night refused to use it. Chest findings and also CT scan are grossly abnormal. Patient had tested positive for flu, so she is on Tamiflu She is also being treated with IV Rocephin and azithromycin for possibility of pneumonia . Patient has past history of stroke with left hemiplegia since 10-12 years ago. She is being treated for seizure disorder with Levetiracetam 500 mg daily . Patient also has chronic dermatitis , probably eczematous, and has been treated with large dose prednisone ( 60 mg daily ) for the past 5-6 months. She does have history of smoking in the remote past. Review of Systems Review of Systems: Yes Unobtainable due to mental condition [facility] Past Medical History Medical History (Updated 09/09/22 @ 16:31 by Lianna Aguilar MD) Cardiomyopathy Constipation COPD (chronic obstructive pulmonary disease) CVA (cerebral vascular accident) Depression Dysphagia Hemiparesis Hyperlipidemia Hypothyroidism Hypoventilation associated with obesity Mild bibasilar atelectasis Obesity BERNARD (obstructive sleep apnea) Respiratory failure with hypoxia and hypercapnia Seizure disorder TIA (transient ischemic attack) Social History Social History (Updated 09/06/22 @ 15:37 by Isabela Yeboah NP) Housing: [facility] Unable to assess alcohol history related to: Unable to respond Patient Tobacco Use Status: Former Tobacco user Advance Directives Date on File: 09/08/22 service: No Current occupational status: retired Meds Allergies Allergy/AdvReac Type Severity Reaction Status Date / Time No Known Allergies Allergy Verified 09/06/22 10:14 Active Medications: Current Medications Acetaminophen (Acetaminophen 325 Mg Tablet) 650 mg PO Q6H PRN PRN Reason: Pain, Mild (Pain Scale 1-3) Last Admin: 09/07/22 21:02 Dose: 650 mg Albuterol Sulfate (Albuterol Sulfate (0.083%) 2.5 Mg/3 Ml Vial.Neb) 2.5 mg INHALE RQ4H WHILE AWAKE PRN PRN Reason: wheezing Albuterol/Ipratropium (Albuterol/Iprat 2.5/0.5mg 3 Ml Ampul.Neb) 3 ml INHALE Q6H COUNT INCLUDES THE [facility] Last Admin: 09/09/22 14:49 Dose: 3 ml Atorvastatin Calcium (Atorvastatin Calcium 80 Mg Tablet) 80 mg PO BEDTIME NOEMY Last Admin: 09/08/22 20:47 Dose: 80 mg Clopidogrel Bisulfate (Clopidogrel Bisulfate 75 Mg Tablet) 75 mg PO DAILY COUNT INCLUDES THE [facility] Last Admin: 09/09/22 07:54 Dose: 75 mg Docusate Sodium (Docusate Sodium 100 Mg Capsule) 100 mg PO DAILY COUNT INCLUDES THE [facility] Last Admin: 09/09/22 07:54 Dose: 100 mg Escitalopram Oxalate (Escitalopram Oxalate 10 Mg Tablet) 10 mg PO DAILY COUNT INCLUDES THE [facility] Last Admin: 09/09/22 07:54 Dose: 10 mg Fluticasone Propionate (Fluticasone Propionate Nasal 16 Gm Cresco) 1 spray NOSTRIL-B Q12H PRN PRN Reason: Allergy Symptoms Heparin Sodium (Porcine) (Heparin Sodium,Porcine 5,000 Unit/Ml Vial) 5,000 unit SUBCUT Q12H COUNT INCLUDES THE [facility] Last Admin: 09/09/22 05:22 Dose: Not Given Hydroxyzine HCl (Hydroxyzine Hcl 25 Mg Tablet) 25 mg PO Q6H PRN PRN Reason: pruitis Azithromycin 500 mg/ Sodium (Chloride) 250 mls @ 125 mls/hr IV Q24H COUNT INCLUDES THE [facility] Stop: 09/12/22 12:59 Last Infusion: 09/09/22 14:46 Dose: Infused Dextrose (D5w) 1,000 mls @ 100 mls/hr IVCONT .Q10H COUNT INCLUDES THE [facility] Last Admin: 09/09/22 12:40 Dose: 100 mls/hr Levetiracetam (Levetiracetam 250 Mg Tablet) 250 mg PO BEDTIME COUNT INCLUDES THE [facility] Levetiracetam (Levetiracetam 500 Mg Tablet) 500 mg PO DAILY COUNT INCLUDES THE [facility] Levothyroxine Sodium (Levothyroxine Sodium 150 Mcg Tablet) 150 mcg PO DAILY@0630 COUNT INCLUDES THE [facility] Last Admin: 09/09/22 07:55 Dose: Not Given Loratadine (Loratadine 10 Mg Tablet) 10 mg PO DAILY COUNT INCLUDES THE [facility] Last Admin: 09/09/22 07:54 Dose: 10 mg Omeprazole (Omeprazole 40 Mg Capsule.Dr) 40 mg PO DAILY@0630 COUNT INCLUDES THE [facility] Ondansetron HCl (Ondansetron Hcl 4 Mg/2 Ml Vial) 4 mg IVPUSH Q8H PRN PRN Reason: Nausea and Vomiting Oseltamivir Phosphate (Oseltamivir Phosphate 30 Mg Capsule) 30 mg PO BID@0600,1800 COUNT INCLUDES THE [facility] Last Admin: 09/09/22 05:22 Dose: 30 mg Pharmacy Consult (Consult Rx Perform Med Rec) 1 each MISCELLANE ONCE PRN PRN Reason: Consult order Polyethylene Glycol (Polyethylene Glycol 3350 17 Gm Powd.Pack) 17 gm PO BID COUNT INCLUDES THE [facility] Last Admin: 09/09/22 07:53 Dose: 17 gm Potassium Phos/Sodium Phos (Sodium,Potassium Phosphates Powd.Pack) 1 packet PO BID COUNT INCLUDES THE [facility] Prednisone (Prednisone 20 Mg Tablet) 60 mg PO DAILY COUNT INCLUDES THE [facility] Last Admin: 09/09/22 07:54 Dose: 60 mg Sodium Chloride (0.9 % Sodium Chloride Flush 3 Ml Syringe) 3 ml IVFLUSH QSHIFT COUNT INCLUDES THE [facility] Last Admin: 09/09/22 07:54 Dose: 3 ml Tizanidine HCl (Tizanidine Hcl 4 Mg Tablet) 4 mg PO DAILY@1300 NOEMY Last Admin: 09/09/22 12:39 Dose: 4 mg Triamcinolone Acetonide (Triamcinolone Acet 0.5 % Cream 15 Gm Tube) 1 appl TOPICAL BID NOEMY; Protocol Home Medications Medication Instructions Recorded Confirmed Last Taken Type Lactobacillus acidophilus 1 cap PO DAILY 09/06/22 09/06/22 Unknown History (Acidophilus capsule) acetaminophen 325 mg tablet 650 mg PO Q4H PRN Pain 09/06/22 09/06/22 Unknown History atorvastatin 80 mg tablet 80 mg PO BEDTIME 09/06/22 09/06/22 Unknown History azithromycin 250 mg tablet 250 mg PO DAILY 09/06/22 09/06/22 Unknown History benzocaine 15 mg lozenges 15 mg mucous membrane Q2H PRN Sore 09/06/22 09/06/22 Unknown History Throat clopidogrel 75 mg tablet (Plavix) 75 mg PO DAILY 09/06/22 09/06/22 Unknown History docusate sodium 100 mg capsule 100 mg PO DAILY 09/06/22 09/06/22 Unknown History escitalopram oxalate 10 mg tablet 10 mg PO DAILY 09/06/22 09/06/22 Unknown History fluticasone propionate 50 1 spray intranasal Q12H PRN 09/06/22 09/06/22 Unknown History mcg/actuation nasal Allergy Symptoms spray,suspension hydrocortisone 2.5 % topical cream 1 appl topical Q12H PRN Pruritis 09/06/22 09/06/22 Unknown History hydroxyzine HCl 25 mg tablet 25 mg PO Q6H PRN pruitis 09/06/22 09/06/22 Unknown History ipratropium 0.5 mg-albuterol 3 mg 3 ml inhalation Q4H PRN Shortness 09/06/22 09/06/22 Unknown History (2.5 mg base)/3 mL nebulization Of Breath Or Wheezing soln levetiracetam 250 mg tablet 250 mg PO BEDTIME 09/06/22 09/06/22 Unknown History levetiracetam 250 mg tablet 500 mg PO DAILY 09/06/22 09/06/22 Unknown History levothyroxine 150 mcg tablet 150 mcg PO DAILY 09/06/22 09/06/22 Unknown History loratadine 10 mg tablet 10 mg PO DAILY 09/06/22 09/06/22 Unknown History peg [id number] 1 1 drp ophthalmic (eye) Q8H PRN Dry 09/06/22 09/06/22 Unknown History %-0.2 %-0.2 % eye drops Eye(S) (Artificial Tears ([id number])) polyethylene glycol 3350 17 17 g PO DAILY 09/06/22 09/06/22 Unknown History gram/dose oral powder (Miralax) prednisone 20 mg tablet 60 mg PO DAILY 09/06/22 09/06/22 Unknown History tizanidine 4 mg tablet 4 mg PO DAILY@1300 09/06/22 09/06/22 Unknown History triamcinolone acetonide 0.1 % 1 appl topical BID 09/06/22 09/06/22 Unknown History topical cream Physical Exam Vital Signs: Vital Signs: Last Vital Signs Temp 99.3 F 09/09/22 11:26 Pulse 92 09/09/22 11:26 Resp 20 09/09/22 11:26 BP 155/69 H 09/09/22 11:26 Pulse Ox 90 L 09/09/22 11:26 O2 Del Method 09/09/22 11:26 O2 Flow Rate 50 09/09/22 04:00 FiO2 40 09/09/22 04:00 Oxygen Flow Rate 5 09/06/22 10:06 BMI result Body Mass Index 38.7 Const: General: no acute distress (but dyspneac during conversation ), alert and awake Orientation/consciousness: patient oriented x3 HEENT: Other: Could not be examined Mouth: oropharynx normal Eyes: General: appearance normal, both eyes and all related structures Neck: Neck: Yes normal visual inspection, Yes no lymphadenopathy, Yes trachea midline, Yes no JVD and Yes other (Neck is short and obese.) Thyroid: Thyroid normal Chest: Chest palpation & inspection: normal inspection of the chest, normal palpation of entire chest wall and no tenderness Resp: Other: Percussion note is not perceptible. Breath sounds are markedly diminished over the lower lobes. There are a few inspiratory crackles over the left base and right lower lobe. Cardio: Palpation: PMI not normal (Not palpable) Rate: regular rate Rhythm: regular rhythm Heart sounds: no gallops and no murmurs GI: Palpation (GI): Soft to palpation, nontender, No hepatosplenomegaly present and no masses Auscultation: normal bowel sounds Back/Spine/Pelvis: Other: Not examined Skin: Other: Dry erythematous rash over the front of the right upper chest, Neuro: Other: PATIENT HAS SPASTIC LEFT HEMIPLEGIA FROM THE OLD STROKE General: patient oriented x3 Extrem: General: Yes normal to inspection, Yes no calf tenderness and Yes edema (MILD EDEMA AROUND THE ANKLES) Psych: Appearance: grossly normal and well kempt Results Laboratory Findings CBC and BMP: 09/09/22 06:15 09/09/22 06:15 Abnormal lab findings: Abnormal Labs 09/06/22 09/06/22 09/06/22 10:29 10:54 10:55 WBC 11.8 H Hgb MCH 26.7 L MCHC 29.9 L Plt Count 135 L MPV Immature Gran % (Auto) 0.6 H Neut % (Auto) 86.2 H Lymph % (Auto) 7.4 L Lymph # (Auto) 0.9 L Abs Immat Gran (auto) 0.07 H Absolute Neuts (auto) 10.2 H Absolute Nucleated RBC ABG pH at Pt Temp ABG pCO2 at Pt Temp ABG pO2 at Pt Temp ABG HCO3 VBG pH VBG HCO3 Sodium 148 H Chloride Carbon Dioxide 38 H Anion Gap 10 L BUN 19 H Creatinine Random Glucose 124 H Phosphorus B-Natriuretic Peptide Total Protein 6.4 L Albumin Urine Protein Urine Blood Urine RBC Influenza Type A (PCR) POSITIVE A 09/06/22 09/06/22 09/06/22 10:55 17:57 22:11 WBC Hgb MCH MCHC 29.9 L Plt Count 118 L MPV 8.8 L Immature Gran % (Auto) Neut % (Auto) Lymph % (Auto) Lymph # (Auto) Abs Immat Gran (auto) Absolute Neuts (auto) Absolute Nucleated RBC ABG pH at Pt Temp 7.21 L ABG pCO2 at Pt Temp 91 H* ABG pO2 at Pt Temp 77 L ABG HCO3 36 H VBG pH VBG HCO3 Sodium Chloride Carbon Dioxide Anion Gap BUN Creatinine Random Glucose Phosphorus B-Natriuretic Peptide 286 H Total Protein Albumin Urine Protein Urine Blood Urine RBC Influenza Type A (PCR) 09/06/22 09/06/22 09/07/22 22:11 22:15 03:26 WBC Hgb MCH MCHC Plt Count MPV Immature Gran % (Auto) Neut % (Auto) Lymph % (Auto) Lymph # (Auto) Abs Immat Gran (auto) Absolute Neuts (auto) Absolute Nucleated RBC ABG pH at Pt Temp ABG pCO2 at Pt Temp ABG pO2 at Pt Temp ABG HCO3 VBG pH 7.31 L VBG HCO3 34 H Sodium 148 H Chloride Carbon Dioxide 36 H Anion Gap 11 L BUN 27 H Creatinine 1.43 H Random Glucose 196 H Phosphorus B-Natriuretic Peptide Total Protein Albumin Urine Protein 100 (2+) H Urine Blood Small (1+) H Urine RBC 6-10 H Influenza Type A (PCR) 09/07/22 09/07/22 09/07/22 05:09 05:20 06:02 WBC Hgb 11.7 L MCH 26.9 L MCHC 30.1 L Plt Count 102 L MPV Immature Gran % (Auto) 0.9 H Neut % (Auto) 90.3 H Lymph % (Auto) 6.6 L Lymph # (Auto) 0.4 L Abs Immat Gran (auto) 0.05 H Absolute Neuts (auto) Absolute Nucleated RBC ABG pH at Pt Temp ABG pCO2 at Pt Temp ABG pO2 at Pt Temp ABG HCO3 VBG pH VBG HCO3 33 H Sodium 146 H Chloride Carbon Dioxide 34 H Anion Gap 10 L BUN 30 H Creatinine Random Glucose 183 H Phosphorus B-Natriuretic Peptide Total Protein 5.3 L Albumin 3.0 L Urine Protein Urine Blood Urine RBC Influenza Type A (PCR) 09/07/22 09/08/22 09/08/22 11:51 05:25 05:25 WBC Hgb MCH MCHC Plt Count MPV Immature Gran % (Auto) Neut % (Auto) Lymph % (Auto) Lymph # (Auto) Abs Immat Gran (auto) Absolute Neuts (auto) Absolute Nucleated RBC ABG pH at Pt Temp 7.31 L ABG pCO2 at Pt Temp 70 H* ABG pO2 at Pt Temp 57 L ABG HCO3 36 H VBG pH VBG HCO3 Sodium 147 H Chloride 110 H Carbon Dioxide Anion Gap BUN 37 H Creatinine 1.51 H Random Glucose 168 H Phosphorus 2.3 L B-Natriuretic Peptide 239 H Total Protein Albumin Urine Protein Urine Blood Urine RBC Influenza Type A (PCR) 09/08/22 09/08/22 09/08/22 05:34 07:24 18:48 WBC Hgb 11.4 L MCH MCHC 29.8 L Plt Count 116 L MPV Immature Gran % (Auto) 0.8 H Neut % (Auto) 91.3 H Lymph % (Auto) 3.9 L Lymph # (Auto) 0.4 L Abs Immat Gran (auto) 0.08 H Absolute Neuts (auto) 9.3 H Absolute Nucleated RBC 0.020 H ABG pH at Pt Temp 7.27 L ABG pCO2 at Pt Temp 62 H* ABG pO2 at Pt Temp 51 L ABG HCO3 29 H VBG pH VBG HCO3 33 H Sodium Chloride Carbon Dioxide Anion Gap BUN Creatinine Random Glucose Phosphorus B-Natriuretic Peptide Total Protein Albumin Urine Protein Urine Blood Urine RBC Influenza Type A (PCR) 09/08/22 09/09/22 09/09/22 19:18 06:15 06:15 WBC 10.9 H Hgb 11.4 L MCH MCHC 29.4 L Plt Count 136 L MPV Immature Gran % (Auto) Neut % (Auto) Lymph % (Auto) Lymph # (Auto) Abs Immat Gran (auto) Absolute Neuts (auto) Absolute Nucleated RBC ABG pH at Pt Temp 7.29 L ABG pCO2 at Pt Temp 60 H* ABG pO2 at Pt Temp 60 L ABG HCO3 29 H VBG pH VBG HCO3 Sodium 150 H Chloride 112 H Carbon Dioxide 33 H Anion Gap 9 L BUN 35 H Creatinine 1.48 H Random Glucose 120 H Phosphorus 2.1 L B-Natriuretic Peptide Total Protein Albumin Urine Protein Urine Blood Urine RBC Influenza Type A (PCR) 09/09/22 06:21 WBC Hgb MCH MCHC Plt Count MPV Immature Gran % (Auto) Neut % (Auto) Lymph % (Auto) Lymph # (Auto) Abs Immat Gran (auto) Absolute Neuts (auto) Absolute Nucleated RBC ABG pH at Pt Temp ABG pCO2 at Pt Temp ABG pO2 at Pt Temp ABG HCO3 VBG pH 7.30 L VBG HCO3 28 H Sodium Chloride Carbon Dioxide Anion Gap BUN Creatinine Random Glucose Phosphorus B-Natriuretic Peptide Total Protein Albumin Urine Protein Urine Blood Urine RBC Influenza Type A (PCR) Microbiology: Microbiology 09/06/22 11:19 Blood - Venous Blood Culture - Preliminary No growth after 48 hours. 09/06/22 10:54 Blood - Venous Blood Culture - Preliminary No growth after 48 hours. Diagnostic Findings Chest x-ray: report reviewed and image reviewed CT scan - chest: report reviewed and image reviewed Assessment and Plan (1) Influenza A: Status: Acute (2) Mild bibasilar atelectasis: Status: Acute (3) Acute exacerbation of chronic obstructive pulmonary disease: Status: Acute (4) Obesity: Status: Acute (5) BERNARD (obstructive sleep apnea): Status: Acute (6) Hypoventilation associated with obesity: Status: Acute (7) Pneumonia: Status: Acute (8) Respiratory failure with hypoxia and hypercapnia: Status: Acute Plan THIS ELDERLY VERY PLEASANT LADY, HAS THE COMPLEX PROBLEM. HER RECURRENT RESPIRATORY FAILURE IS DUE TO COMBINATION OF MULTIPLE FACTORS. SHE DOES HAVE BIBASILAR ATELECTASIS IS CAUSING ADDITIONAL HYPOVENTILATION, AND ON TOP OF THAT SHE MAY ALSO HAVE POST FLU PNEUMONIA RECC . SHE SHOULD BE TREATED WITH BIPAP THERAPY AT LEAST EVERY NIGHT FOR 6-8 HOURS. CONTINUE HIGH-FLOW O2 TO KEEP O2 SAT ABOVE 90%. HER CONDITION IMPROVES THEN SHE CAN BE CHANGED TO NASAL CANNULA. DUONEB UPDRAFT Q 6 HOURS WHILE AWAKE AND ALBUTEROL UPDRAFT Q 4-6 HOURS P.R.N. WHEN SHE IS MORE ALERT SHE SHOULD BE ENCOURAGED TO GET OUT OF BED AND SIT IN THE CHAIR , DO DEEP BREATHING EXERCISES. CONTINUE TREATMENT WITH TAMIFLU TO COMPLETE THE COURSE AND ALSO PATIENT MAY BENEFIT FROM [employer]. THANK YOU FOR ASKING ME TO SEE THIS PATIENT Time Spent With Patient Time: Total time managing care of this patient today ____ minutes. Procedures Date of Service Date of Service: 09/09/22
--- NOTE | 2022-09-09 19:30 | PC.NURSE ---
Almanzar removed 12:[address] Patient passed voiding trial and voided x2.
[2022-09-09] MEDS: levETIRAcetam 250 MG TABLET PO (19:47)
[2022-09-09] MEDS: Atorvastatin Calcium 80 MG TABLET PO (19:47)
[2022-09-09] MEDS: Sodium,Potassium Phosphates POWD.PACK 1 PACKET PO (19:47)
[2022-09-10] VITALS (13 sets, daily range): BP systolic 103–149; BP diastolic 53–65; PULSE 68–97; RESP 17–22; TEMP 36.3–36.9; O2SAT 90–97; BMI 42.4
[2022-09-10] MEDS: Albuterol/Iprat 2.5/0.5MG 3 ML AMPUL.NEB INHALE ×4 (03:54→20:10)
[2022-09-10] MEDS: Omeprazole 40 MG CAPSULE.DR PO (05:32)
[2022-09-10] MEDS: Levothyroxine Sodium 150 MCG TABLET PO (05:32)
[2022-09-10] MEDS: Oseltamivir Phosphate 30 MG CAPSULE PO ×2 (05:32→18:25)
[2022-09-10 06:26] LABS: Anion Gap 9 (12-20); Blood Urea Nitrogen 33 mg/dL (9-16); Calcium 9.3 mg/dL (8.4-10.2); Carbon Dioxide 31 mmol/L (22-29); Chloride 110 mmol/L (96-108); Creatinine Clr Calc Pharmacy 36.4; Estimated Glomerular Filt Rate 42; Glucose Random 129 mg/dL (60-115); Potassium 4.5 mmol/L (3.3-5.1); Sodium 145 mmol/L (135-145)
[2022-09-10 06:36] LABS: Hematocrit 37.5 % (37.0-47.0); Hemoglobin 11.3 g/dl (12.0-16.0); Mean Corpuscular HGB Conc 30.1 g/dl (31.0-35.0); Mean Corpuscular Hemoglobin 27.3 pg (27.0-33.0); Mean Corpuscular Volume 90.6 fL (80.0-98.0); Mean Platelet Volume 9.2 fL (9.4-12.3); Platelet Count 138 X10*3/uL (160-400); Red Blood Count 4.14 X10*6/uL (4.20-5.50); Red Cell Distribution Width 15.1 % (11.0-16.0); White Blood Count 9.2 X10*3/uL (4.8-10.8)
[2022-09-10] MEDS: Dextrose 5 % 1,000 ML 100 ML IVCONT ×2 (06:40→18:25)
[2022-09-10] MEDS: predniSONE 20 MG TABLET 60 MG PO (10:36)
[2022-09-10] MEDS: hydrOXYzine HCL 25 MG TABLET PO ×2 (10:36→21:31)
[2022-09-10] MEDS: levETIRAcetam 500 MG TABLET PO (10:36)
[2022-09-10] MEDS: Acetaminophen 325 MG TABLET 650 MG PO ×2 (10:36→21:31)
[2022-09-10] MEDS: Clopidogrel Bisulfate 75 MG TABLET PO (10:36)
[2022-09-10] MEDS: Escitalopram Oxalate 10 MG TABLET PO (10:38)
[2022-09-10] MEDS: Docusate Sodium 100 MG CAPSULE PO (10:38)
[2022-09-10] MEDS: Sodium,Potassium Phosphates POWD.PACK 1 PACKET PO ×2 (10:39→21:31)
[2022-09-10] MEDS: Loratadine 10 MG TABLET PO (10:39)
[2022-09-10] MEDS: Azithromycin 500 MG in 0.9 % Sodium Chloride 250 ML 125 MG IV (13:52)
--- NOTE | 2022-09-10 13:55 | MHC.CM.PN ---
PER MD ROUNDS, PT NOT MEDICALLY CLEARED FOR DC (HIGH FLOW 02) CM WILL CONTINUE TO FOLLOW.
[2022-09-10] MEDS: TiZANidine HCL 4 MG TABLET PO (13:59)
[2022-09-10] MEDS: levETIRAcetam 250 MG TABLET PO (21:33)
[2022-09-10] MEDS: Atorvastatin Calcium 80 MG TABLET PO (21:34)
[2022-09-10] MEDS: Triamcinolone Acet 0.5 % Cream 15 GM TUBE 1 APPL TOPICAL (22:18)
[2022-09-10] MEDS: guaiFENesin LA 600 MG TAB.ER.12H PO (23:20)
[2022-09-11] VITALS (12 sets, daily range): BP systolic 112–132; BP diastolic 51–60; PULSE 69–88; RESP 18–20; TEMP 36.1–36.8; O2SAT 90–94; BMI 39.5
--- NOTE | 2022-09-11 01:59 | PC.NURSE ---
Shouts out repeatedly despite answering orientation questions correctly, often with vague complaint or unintelligible complaint. MD notified. Atarax PRn with minimal effect. Patient refused nocturnal cpap after triying for 10 minutes. Patient refused SQ heparin PPX
[2022-09-11] MEDS: Albuterol/Iprat 2.5/0.5MG 3 ML AMPUL.NEB INHALE ×4 (03:25→19:31)
[2022-09-11] MEDS: Dextrose 5 % 1,000 ML 100 ML IVCONT (04:31)
[2022-09-11] MEDS: Omeprazole 40 MG CAPSULE.DR PO (06:23)
[2022-09-11] MEDS: Oseltamivir Phosphate 30 MG CAPSULE PO ×2 (06:23→17:29)
[2022-09-11] MEDS: Levothyroxine Sodium 150 MCG TABLET PO (06:23)
[2022-09-11] MEDS: Docusate Sodium 100 MG CAPSULE PO (08:43)
[2022-09-11] MEDS: predniSONE 20 MG TABLET 60 MG PO (08:43)
[2022-09-11] MEDS: Sodium,Potassium Phosphates POWD.PACK 1 PACKET PO ×2 (08:43→20:13)
[2022-09-11] MEDS: Escitalopram Oxalate 10 MG TABLET PO (08:44)
[2022-09-11] MEDS: levETIRAcetam 500 MG TABLET PO (08:44)
[2022-09-11] MEDS: Loratadine 10 MG TABLET PO (08:44)
[2022-09-11] MEDS: Clopidogrel Bisulfate 75 MG TABLET PO (08:44)
[2022-09-11] MEDS: Triamcinolone Acet 0.5 % Cream 15 GM TUBE 1 APPL TOPICAL ×2 (08:45→20:15)
--- NOTE | 2022-09-11 08:53 | P.PNIM_ITS ---
Subjective Subjective Date of Service: 09/11/22 Interval History: F/u on acute hypoxic respiratory failure interval history: more alert, remains on high flow with marginal O2 sats Review of Systems sob, anxiety Physical Exam Vital Signs: Vital Signs: Last Vital Signs Temp 97.3 F 09/11/22 08:00 Pulse 70 09/11/22 08:04 Resp 20 09/11/22 08:04 BP 132/60 09/11/22 08:00 Pulse Ox 92 09/11/22 08:00 O2 Del Method 09/11/22 08:00 O2 Flow Rate 35 09/11/22 08:00 FiO2 32.4 09/11/22 08:00 Oxygen Flow Rate 5 09/06/22 10:06 BMI result Body Mass Index 39.5 Const: Other: General awake alert, resting comfortably in no acute distress. Neck supple no JVD. CVS regular rate rhythm, Respiratory lungs clear to auscultation, no respiratory distress, no wheeze, no rhonchi. Gastrointestinal abdomen soft, nontender, bowel sounds audible, no guarding , no rigidity. Extremities no edema. Neuro speech clear, left hemiparesis. Skin left anterior chest wall hyperemic rash with central scaling distinct margins Psych appropriate affect Objective Data Active Medications Acetaminophen (Acetaminophen 325 Mg Tablet) 650 mg PO Q6H PRN PRN Reason: Pain, Mild (Pain Scale 1-3) Last Admin: 09/10/22 21:31 Dose: 650 mg Documented By: TRISTEN Albuterol Sulfate (Albuterol Sulfate (0.083%) 2.5 Mg/3 Ml Vial.Neb) 2.5 mg INHALE RQ4H WHILE AWAKE PRN PRN Reason: wheezing Albuterol/Ipratropium (Albuterol/Iprat 2.5/0.5mg 3 Ml Ampul.Neb) 3 ml INHALE Q6H [facility] Last Admin: 09/11/22 08:02 Dose: 3 ml Documented By: YAMILE Atorvastatin Calcium (Atorvastatin Calcium 80 Mg Tablet) 80 mg PO BEDTIME [facility] Last Admin: 09/10/22 21:34 Dose: 80 mg Documented By: TRISTEN Clopidogrel Bisulfate (Clopidogrel Bisulfate 75 Mg Tablet) 75 mg PO DAILY [facility] Last Admin: 09/11/22 08:44 Dose: 75 mg Documented By: SANTOS Docusate Sodium (Docusate Sodium 100 Mg Capsule) 100 mg PO DAILY [facility] Last Admin: 09/11/22 08:43 Dose: 100 mg Documented By: SANTOS Escitalopram Oxalate (Escitalopram Oxalate 10 Mg Tablet) 10 mg PO DAILY [facility] Last Admin: 09/11/22 08:44 Dose: 10 mg Documented By: SANTOS Fluticasone Propionate (Fluticasone Propionate Nasal 16 Gm [place]) 1 spray NOSTRIL-B Q12H PRN PRN Reason: Allergy Symptoms Guaifenesin (Guaifenesin La 600 Mg Tab.Er.12h) 600 mg PO BID PRN PRN Reason: cough Last Admin: 09/10/22 23:20 Dose: 600 mg Documented By: TRISTEN Heparin Sodium (Porcine) (Heparin Sodium,Porcine 5,000 Unit/Ml Vial) 5,000 unit SUBCUT Q12H [facility] Last Admin: 09/11/22 06:23 Dose: Not Given Documented By: GREG Non-Admin Reason: Patient Refused Hydroxyzine HCl (Hydroxyzine Hcl 25 Mg Tablet) 25 mg PO Q6H PRN PRN Reason: pruitis Last Admin: 09/10/22 21:31 Dose: 25 mg Documented By: TRISTEN Azithromycin 500 mg/ Sodium (Chloride) 250 mls @ 125 mls/hr IV Q24H [facility] Stop: 09/12/22 12:59 Last Infusion: 09/10/22 21:28 Dose: 0 mls/hr Documented By: TRISTEN Dextrose (D5w) 1,000 mls @ 100 mls/hr IVCONT .Q10H [facility] Last Admin: 09/11/22 04:31 Dose: 100 mls/hr Documented By: GREG Levetiracetam (Levetiracetam 250 Mg Tablet) 250 mg PO BEDTIME [facility] Last Admin: 09/10/22 21:33 Dose: 250 mg Documented By: TRISTEN Levetiracetam (Levetiracetam 500 Mg Tablet) 500 mg PO DAILY [facility] Last Admin: 09/11/22 08:44 Dose: 500 mg Documented By: SANTOS Levothyroxine Sodium (Levothyroxine Sodium 150 Mcg Tablet) 150 mcg PO DAILY@0630 [facility] Last Admin: 09/11/22 06:23 Dose: 150 mcg Documented By: GREG Loratadine (Loratadine 10 Mg Tablet) 10 mg PO DAILY [facility] Last Admin: 09/11/22 08:44 Dose: 10 mg Documented By: SANTOS Omeprazole (Omeprazole 40 Mg Capsule.) 40 mg PO DAILY@0630 [facility] Last Admin: 09/11/22 06:23 Dose: 40 mg Documented By: GREG Ondansetron HCl (Ondansetron Hcl 4 Mg/2 Ml Vial) 4 mg IVPUSH Q8H PRN PRN Reason: Nausea and Vomiting Oseltamivir Phosphate (Oseltamivir Phosphate 30 Mg Capsule) 30 mg PO BID@0600,1800 [facility] Last Admin: 09/11/22 06:23 Dose: 30 mg Documented By: GREG Pharmacy Consult (Consult Rx Perform Med Rec) 1 each MISCELLANE ONCE PRN PRN Reason: Consult order Polyethylene Glycol (Polyethylene Glycol 3350 17 Gm Powd.Pack) 17 gm PO BID [facility] Last Admin: 09/11/22 08:45 Dose: Not Given Documented By: SANTOS Non-Admin Reason: Patient Refused Potassium Phos/Sodium Phos (Sodium,Potassium Phosphates Powd.Pack) 1 packet PO BID [facility] Last Admin: 09/11/22 08:43 Dose: 1 packet Documented By: SANTOS Prednisone (Prednisone 20 Mg Tablet) 60 mg PO DAILY [facility] Last Admin: 09/11/22 08:43 Dose: 60 mg Documented By: SANTOS Sodium Chloride (0.9 % Sodium Chloride Flush 3 Ml Syringe) 3 ml IVFLUSH QSHIFT [facility] Last Admin: 09/11/22 08:44 Dose: Not Given Documented By: SANTOS Non-Admin Reason: IV Running Tizanidine HCl (Tizanidine Hcl 4 Mg Tablet) 4 mg PO DAILY@1300 [facility] Last Admin: 09/10/22 13:59 Dose: 4 mg Documented By: TRISTEN Triamcinolone Acetonide (Triamcinolone Acet 0.5 % Cream 15 Gm Tube) 1 appl TOPICAL BID [facility]; Protocol Last Admin: 09/11/22 08:45 Dose: 1 appl Documented By: SANTOS Labs CBC & Chem 7: 09/10/22 05:44 09/10/22 05:44 Labs: Laboratory Results - last 24 hr 09/10/22 10:55 Ur Random Sodium 44.0 Assessment and Plan (1) Hypoxia: Status: Acute (2) Influenza A: Status: Acute (3) Acute exacerbation of chronic obstructive pulmonary disease: Status: Acute Plan Acute hypoxic and hypercarbic respiratory failure secondary to COPD with chronic CO2 retention and influenza A with possible underlying obstructive sleep apnea or obesity hypoventilation syndrome Continue high-flow oxygen and gradually wean patient not on home oxygen, in ICU patient treated with BiPAP currently Seen by Pulmonary see detail note from Dr. 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 Status post CVA with left hemiparesis since 2003 bed bound and on wheelchair on Plavix Cystic lesion of the pancreatic neck recommend outpatient follow-up, no pancreatic duct dilatation, background of generalized pancreatic atrophy Hypophosphatemia. ph 2.1, will add Neutra-Phos 1 packet b.i.d.follow ph level in couple days Right kidney non obstructive nephropathy. Code status full code DVT prophylaxis on heparin subQ Patient need continued inpatient hospitalization due to hypoxic and hypercarbic respiratory failure requiring high-flow oxygen and BiPAP Overall goal is to wean off O2 Time Spent With Patient Time: Total time managing care of this patient today ____ minutes. Quality Stroke Does the patient have a stroke diagnosis?: No VTE Prior VTE?: No VTE Risk Level:: Medical - moderate - high VTE Device Contraindication: Treatment Not Indicated VTE Drug Contraindication: N/A - Med Ordered
[2022-09-11 09:48] LABS: Venous Blood Gas Refer to POC result
[2022-09-11 09:49] LABS: VBG Base Excess 0.4 mmol/L; VBG HCO3 21 mmol/L (22-26); VBG pCO2 24 mmHg; VBG pH 7.54 (7.32-7.43); VBG pO2 223 mmHg
[2022-09-11 10:01] LABS: Hematocrit 38.9 % (37.0-47.0); Hemoglobin 11.8 g/dl (12.0-16.0); Mean Corpuscular HGB Conc 30.3 g/dl (31.0-35.0); Mean Corpuscular Hemoglobin 26.8 pg (27.0-33.0); Mean Corpuscular Volume 88.4 fL (80.0-98.0); Mean Platelet Volume 9.6 fL (9.4-12.3); Platelet Count 128 X10*3/uL (160-400); Red Cell Distribution Width 14.6 % (11.0-16.0); White Blood Count 9.4 X10*3/uL (4.8-10.8)
[2022-09-11 10:08] LABS: Anion Gap 12 (12-20); Blood Urea Nitrogen 30 mg/dL (9-16); Calcium 9.1 mg/dL (8.4-10.2); Carbon Dioxide 26 mmol/L (22-29); Chloride 110 mmol/L (96-108); Creatinine Clr Calc Pharmacy 42.3; Estimated Glomerular Filt Rate 49; Glucose Random 143 mg/dL (60-115); Potassium 4.4 mmol/L (3.3-5.1); Sodium 144 mmol/L (135-145)
--- NOTE | 2022-09-11 10:25 | PM.PNPUL ---
Subjective Subjective Date of Service: 09/11/22 Principal diagnosis: respiratory Failure Interval history: This 82 years old female, is recovering slowly. She is still requiring high-flow O2. She is not able to tolerate the BiPAP at night. Remains afebrile, denies any chest pain, denies any acute distress. She is remaining mostly in the bed, and not able to do deep breathing exercises. It should be noted that she remains on prednisone 60 mg daily, which she had been getting for acute dermatitis. Clinically because of her gross obesity, possibility of BERNARD and hypoventilation syndrome has been suspected. Her acute on chronic respiratory failure at the time of admission has definitely improved, PCO2 91 at the time of admission, has come down to almost normal level . Objective Data Labs CBC & Chem 7: 09/11/22 09:11 09/11/22 09:11 Labs: Laboratory Results - last 24 hr 09/10/22 09/11/22 09/11/22 10:55 09:11 09:11 WBC 9.4 RBC 4.40 Hgb 11.8 L Hct 38.9 MCV 88.4 MCH 26.8 L MCHC 30.3 L RDW 14.6 Plt Count 128 L MPV 9.6 Absolute Nucleated RBC 0.000 Nucleated RBC % (auto) 0.0 VBG pH VBG pCO2 VBG pO2 VBG HCO3 VBG O2 Saturation VBG Base Excess Sodium 144 Potassium 4.4 Chloride 110 H Carbon Dioxide 26 Anion Gap 12 BUN 30 H Creatinine 1.07 Estim Creat Clear Calc 42.3 Estimated GFR 49 Random Glucose 143 H Calcium 9.1 Ur Random Sodium 44.0 09/11/22 09:43 WBC RBC Hgb Hct MCV MCH MCHC RDW Plt Count MPV Absolute Nucleated RBC Nucleated RBC % (auto) VBG pH 7.54 H VBG pCO2 24 VBG pO2 223 VBG HCO3 21 L VBG O2 Saturation 100.0 VBG Base Excess 0.4 Sodium Potassium Chloride Carbon Dioxide Anion Gap BUN Creatinine Estim Creat Clear Calc Estimated GFR Random Glucose Calcium Ur Random Sodium Microbiology Microbiology Results: Microbiology 09/06/22 11:19 Blood - Venous Blood Culture - Preliminary No growth after 48 hours. 09/06/22 10:54 Blood - Venous Blood Culture - Preliminary No growth after 48 hours. Physical Exam Vital Signs: Vital Signs: Last Vital Signs Temp 97.3 F 09/11/22 08:00 Pulse 70 09/11/22 08:04 Resp 20 09/11/22 08:04 BP 132/60 09/11/22 08:00 Pulse Ox 92 09/11/22 08:00 O2 Del Method 09/11/22 08:00 O2 Flow Rate 35 09/11/22 08:00 FiO2 32.4 09/11/22 08:00 Oxygen Flow Rate 5 09/06/22 10:06 BMI result Body Mass Index 39.5 Const: Other: Examination is difficult as she is confined to bed, Chest percussion not perceptible because of her obese chest wall. Breath sounds are grossly diminished especially over the basilar areas. There are inspiratory crepitations over both bases but no wheezes. Procedures Date of Service Date of Service: 09/10/22 Assessment and Plan Assessment and plan (1) Obesity: Status: Acute (2) Hypoventilation associated with obesity: Status: Acute (3) Pneumonia: Status: Acute (4) Respiratory failure with hypoxia and hypercapnia: Status: Acute (5) Influenza A: Status: Acute Plan 82 years old female slowly improving from her influenza a E infection and possible pneumonia. She is suspected to have chronic hypoventilation syndrome may be secondary to obesity. She continues to have significant A-Q abnormality and resultant hypoxemia, which is being treated with high-flow O2. Hypercapnia has greatly improved. Recc . Complete the course of azithromycin for 1 week. Continue high-flow O2, but start weaning efforts, and see if she can tolerate and maintain good oxygenation with nasal cannula. When she is more alert , she should be out of bed as much as possible. She would need to be started on deep breathing exercises, chest CPT, and use of flutter well with may be helpful. Continue DuoNeb updraft Q 6 hours while awake. As for as prednisone is concerned, she may be weaned off slowly, reduce by 10 mg q.week, but as it has been prescribed for her dermatologic condition, final decision will have to be made by the treating dining car waiter/waitress., Venous blood gas, ordered to evaluate her current level of respiratory failure. Time Spent With Patient Time: Total time managing care of this patient today ____ minutes. Progress Note: Quality Stroke Does the patient have a stroke diagnosis?: No
[2022-09-11] MEDS: TiZANidine HCL 4 MG TABLET PO (13:27)
[2022-09-11] MEDS: Azithromycin 500 MG in 0.9 % Sodium Chloride 250 ML 125 MG IV (13:33)
[2022-09-11] MEDS: Heparin Sodium,Porcine 5,000 UNIT/ML VIAL 5000 UNIT SUBCUT (17:29)
[2022-09-11] MEDS: Acetaminophen 325 MG TABLET 650 MG PO (18:32)
[2022-09-11] MEDS: levETIRAcetam 250 MG TABLET PO (20:13)
[2022-09-11] MEDS: Atorvastatin Calcium 80 MG TABLET PO (20:13)
[2022-09-11] MEDS: hydrOXYzine HCL 25 MG TABLET PO (20:13)
[2022-09-12] VITALS (11 sets, daily range): BP systolic 120–143; BP diastolic 54–73; PULSE 73–91; RESP 18–24; TEMP 36.1–37.2; O2SAT 89–96; BMI 38.7
[2022-09-12] MEDS: Albuterol/Iprat 2.5/0.5MG 3 ML AMPUL.NEB INHALE ×4 (04:02→19:28)
[2022-09-12] MEDS: Oseltamivir Phosphate 30 MG CAPSULE PO (05:24)
[2022-09-12] MEDS: Levothyroxine Sodium 150 MCG TABLET PO (05:24)
[2022-09-12] MEDS: Omeprazole 40 MG CAPSULE.DR PO (05:24)
[2022-09-12] MEDS: Sodium,Potassium Phosphates POWD.PACK 1 PACKET PO ×2 (08:43→19:36)
[2022-09-12] MEDS: levETIRAcetam 500 MG TABLET PO (08:43)
[2022-09-12] MEDS: Clopidogrel Bisulfate 75 MG TABLET PO (08:43)
[2022-09-12] MEDS: Loratadine 10 MG TABLET PO (08:43)
[2022-09-12] MEDS: Escitalopram Oxalate 10 MG TABLET PO (08:43)
[2022-09-12] MEDS: Docusate Sodium 100 MG CAPSULE PO (08:43)
[2022-09-12] MEDS: predniSONE 20 MG TABLET 60 MG PO (08:43)
[2022-09-12] MEDS: guaiFENesin LA 600 MG TAB.ER.12H PO (08:49)
--- NOTE | 2022-09-12 12:21 | P.PNIM_ITS ---
Subjective Subjective Date of Service: 09/12/22 Interval History: Complaining of difficulty taking deep breaths, denies cough, no fevers, no chills, tolerating diet, no other acute issues denies chest pain, has been mostly in bed, no other acute events overnight Review of Systems Review of Systems: Yes all other systems are reviewed and are negative Physical Exam Vital Signs: Vital Signs: Last Vital Signs Temp 98.0 F 09/12/22 12:00 Pulse 87 09/12/22 12:00 Resp 20 09/12/22 12:00 BP 120/57 L 09/12/22 12:00 Pulse Ox 94 09/12/22 12:00 O2 Del Method 09/12/22 12:00 O2 Flow Rate 5 09/12/22 12:00 FiO2 35 09/12/22 07:18 Oxygen Flow Rate 5 09/06/22 10:06 BMI result Body Mass Index 39.5 Const: Other: General awake aler t, resting comfort ably in no acute d istress.? Neck? araiza pple no JVD. CVS? regular rate rhyth m, Respiratory lona gs clear to auscul tation, no respira tory distress, no wheeze, no rhonchi . Gastrointestinal abdomen soft, non tender, bowel soun ds audible, no gua rding , no rigidit y. Extremities no edema. Neuro? spee ch clear, left hem iparesis. Skin lef t anterior chest w all hyperemic rash with central scal ing distinct esvin ns, improving with less hyperemia Ps ych appropriate af fect Objective Data Active Medications Acetaminophen (Acetaminophen 325 Mg Tablet) 650 mg PO Q6H PRN PRN Reason: Pain, Mild (Pain Scale 1-3) Last Admin: 09/11/22 18:32 Dose: 650 mg Documented By: SANTOS Albuterol Sulfate (Albuterol Sulfate (0.083%) 2.5 Mg/3 Ml Vial.Neb) 2.5 mg INHALE RQ4H WHILE AWAKE PRN PRN Reason: wheezing Albuterol/Ipratropium (Albuterol/Iprat 2.5/0.5mg 3 Ml Ampul.Neb) 3 ml INHALE Q6H [facility] Last Admin: 09/12/22 07:55 Dose: 3 ml Documented By: JOS Atorvastatin Calcium (Atorvastatin Calcium 80 Mg Tablet) 80 mg PO BEDTIME [facility] Last Admin: 09/11/22 20:13 Dose: 80 mg Documented By: EDWIGE Clopidogrel Bisulfate (Clopidogrel Bisulfate 75 Mg Tablet) 75 mg PO DAILY [facility] Last Admin: 09/12/22 08:43 Dose: 75 mg Documented By: REESE Docusate Sodium (Docusate Sodium 100 Mg Capsule) 100 mg PO DAILY [facility] Last Admin: 09/12/22 08:43 Dose: 100 mg Documented By: REESE Escitalopram Oxalate (Escitalopram Oxalate 10 Mg Tablet) 10 mg PO DAILY [facility] Last Admin: 09/12/22 08:43 Dose: 10 mg Documented By: REESE Fluticasone Propionate (Fluticasone Propionate Nasal 16 Gm [place]) 1 spray NOSTRIL-B Q12H PRN PRN Reason: Allergy Symptoms Guaifenesin (Guaifenesin La 600 Mg Tab.Er.12h) 600 mg PO BID PRN PRN Reason: cough Last Admin: 09/12/22 08:49 Dose: 600 mg Documented By: REESE Heparin Sodium (Porcine) (Heparin Sodium,Porcine 5,000 Unit/Ml Vial) 5,000 unit SUBCUT Q12H [facility] Last Admin: 09/12/22 05:24 Dose: Not Given Documented By: EDWIGE Non-Admin Reason: Patient Refused Hydroxyzine HCl (Hydroxyzine Hcl 25 Mg Tablet) 25 mg PO Q6H PRN PRN Reason: pruitis Last Admin: 09/11/22 20:13 Dose: 25 mg Documented By: EDWIGE Azithromycin 500 mg/ Sodium (Chloride) 250 mls @ 125 mls/hr IV Q24H [facility] Stop: 09/12/22 12:59 Last Infusion: 09/11/22 16:00 Dose: 0 mls/hr Documented By: SANTOS Levetiracetam (Levetiracetam 250 Mg Tablet) 250 mg PO BEDTIME [facility] Last Admin: 09/11/22 20:13 Dose: 250 mg Documented By: EDWIGE Levetiracetam (Levetiracetam 500 Mg Tablet) 500 mg PO DAILY [facility] Last Admin: 09/12/22 08:43 Dose: 500 mg Documented By: REESE Levothyroxine Sodium (Levothyroxine Sodium 150 Mcg Tablet) 150 mcg PO DAILY@0630 [facility] Last Admin: 09/12/22 05:24 Dose: 150 mcg Documented By: EDWIGE Loratadine (Loratadine 10 Mg Tablet) 10 mg PO DAILY [facility] Last Admin: 09/12/22 08:43 Dose: 10 mg Documented By: REESE Omeprazole (Omeprazole 40 Mg Capsule.Dr) 40 mg PO DAILY@0630 [facility] Last Admin: 09/12/22 05:24 Dose: 40 mg Documented By: EDWIGE Ondansetron HCl (Ondansetron Hcl 4 Mg/2 Ml Vial) 4 mg IVPUSH Q8H PRN PRN Reason: Nausea and Vomiting Pharmacy Consult (Consult Rx Perform Med Rec) 1 each MISCELLANE ONCE PRN PRN Reason: Consult order Polyethylene Glycol (Polyethylene Glycol 3350 17 Gm Powd.Pack) 17 gm PO BID [facility] Last Admin: 09/12/22 08:44 Dose: Not Given Documented By: REESE Non-Admin Reason: Patient Refused Potassium Phos/Sodium Phos (Sodium,Potassium Phosphates Powd.Pack) 1 packet PO BID [facility] Last Admin: 09/12/22 08:43 Dose: 1 packet Documented By: REESE Prednisone (Prednisone 10 Mg Tablet) 50 mg PO DAILY [facility] Last Admin: 09/12/22 10:28 Dose: Not Given Documented By: REESE Non-Admin Reason: already given dose this am. Sodium Chloride (0.9 % Sodium Chloride Flush 3 Ml Syringe) 3 ml IVFLUSH QSHIFT [facility] Last Admin: 09/12/22 08:44 Dose: 3 ml Documented By: REESE Tizanidine HCl (Tizanidine Hcl 4 Mg Tablet) 4 mg PO DAILY@1300 [facility] Last Admin: 09/11/22 13:27 Dose: 4 mg Documented By: SANTOS Triamcinolone Acetonide (Triamcinolone Acet 0.5 % Cream 15 Gm Tube) 1 appl TOPICAL BID [facility]; Protocol Last Admin: 09/12/22 08:44 Dose: Not Given Documented By: REESE Non-Admin Reason: Patient Refused Labs CBC & Chem 7: 09/11/22 09:11 09/11/22 09:11 Microbiology Microbiology Results: Microbiology 09/06/22 11:19 Blood Culture - Final Blood - Venous No growth after 5 days. 09/06/22 10:54 Blood Culture - Final Blood - Venous No growth after 5 days. Assessment and Plan (1) Respiratory failure with hypoxia and hypercapnia: Status: Acute Plan Acute hypoxic and hypercarbic respiratory failure secondary to COPD with chronic CO2 retention and influenza A with possible underlying obstructive sleep apnea /obesity hypoventilation syndrome Patient oxygen requirement improved currently on OxyMask 5 L, not tolerating BiPAP Wean oxygen as tolerated, finished 5 days of Tamiflu, , and ceftriaxone on azithromycin last dose today Probably has chronic pCO2 of 50-60 Patient is bed ridden/wheelchair bound does not tolerate out of bed to chair Recommend incentive spirometry, continue DuoNeb q.i.d. Wean steroids 10 mg Q weekly, although patient is on high-dose steroids for skin rash that is improving. Obesity likely due to excess calories weight reduction recommended Metabolic encephalopathy due to CO2 narcosis resolved Hypernatremia, resolved will DC IV fluids Acute kidney injury resolved will DC IV fluids creatinine 1.07 on 09/11 Metabolic alkalosis likely compensatory with CO2 narcosis resolved, Diamox discontinued History of seizure on Keppra, continue seizure precaution Constipation/stool impaction resolved Rash on anterior chest likely eczema improving will wean prednisone, on prednisone 60 mg po will transition to prednisone 50 mg daily, continue Kenalog cream b.i.d. Status post CVA with left hemiparesis since 2003 bed bound and on wheelchair on Plavix Cystic lesion of the pancreatic neck recommend outpatient follow-up, no pancreatic duct dilatation, background of generalized pancreatic atrophy Hypophosphatemia. ph 2.1, on Neutra-Phos 1 packet b.i.d.follow ph level Right kidney non obstructive nephropathy. Code status full code DVT prophylaxis on heparin subQ Patient need continued inpatient hospitalization due to hypoxic and hypercarbic respiratory failure, will return back to [facility] Time Spent With Patient Time: Total time managing care of this patient today ____ minutes. Quality Stroke Does the patient have a stroke diagnosis?: No VTE Prior VTE?: No VTE Risk Level:: Medical - moderate - high VTE Device Contraindication: Treatment Not Indicated VTE Drug Contraindication: N/A - Med Ordered
[2022-09-12] MEDS: TiZANidine HCL 4 MG TABLET PO (13:50)
[2022-09-12] MEDS: Atorvastatin Calcium 80 MG TABLET PO (19:36)
[2022-09-12] MEDS: Triamcinolone Acet 0.5 % Cream 15 GM TUBE 1 APPL TOPICAL (19:36)
[2022-09-12] MEDS: levETIRAcetam 250 MG TABLET PO (19:36)
[2022-09-12] MEDS: Acetaminophen 325 MG TABLET 650 MG PO (20:19)
[2022-09-13] VITALS (8 sets, daily range): BP systolic 123–161; BP diastolic 58–72; PULSE 65–81; RESP 16–20; TEMP 35.8–37.1; O2SAT 91–96
[2022-09-13] MEDS: Levothyroxine Sodium 150 MCG TABLET PO (05:26)
[2022-09-13] MEDS: Omeprazole 40 MG CAPSULE.DR PO (05:26)
[2022-09-13 07:35] LABS: Phosphorus 2.8 mg/dL (2.7-4.5)
[2022-09-13] MEDS: predniSONE 10 MG TABLET 50 MG PO (07:39)
[2022-09-13] MEDS: Escitalopram Oxalate 10 MG TABLET PO (07:39)
[2022-09-13] MEDS: Clopidogrel Bisulfate 75 MG TABLET PO (07:39)
[2022-09-13] MEDS: levETIRAcetam 500 MG TABLET PO (07:39)
[2022-09-13] MEDS: Docusate Sodium 100 MG CAPSULE PO (07:39)
[2022-09-13] MEDS: Loratadine 10 MG TABLET PO (07:39)
[2022-09-13] MEDS: polyethylene glycoL 3350 17 GM POWD.PACK PO (07:40)
[2022-09-13] MEDS: Sodium,Potassium Phosphates POWD.PACK 1 PACKET PO ×2 (07:40→20:52)
[2022-09-13] MEDS: Albuterol/Iprat 2.5/0.5MG 3 ML AMPUL.NEB INHALE ×2 (09:50→19:30)
--- NOTE | 2022-09-13 10:06 | HO.PM.IMPN ---
Subjective Subjective Date of Service: 09/13/22 Interval History: She is more alert, more coherent, has sob with deep breath. Off high flow Review of Systems sob, anxiety Physical Exam Vital Signs: Vital Signs: Last Vital Signs Temp 97.0 F 09/13/22 07:14 Pulse 76 09/13/22 09:51 Resp 18 09/13/22 09:51 BP 161/72 H 09/13/22 07:14 Pulse Ox 93 09/13/22 07:14 O2 Del Method 09/13/22 07:14 O2 Flow Rate 3 09/13/22 07:14 FiO2 35 09/12/22 07:18 Oxygen Flow Rate 5 09/06/22 10:06 BMI result Body Mass Index 0.0 Objective Data Active Medications Acetaminophen (Acetaminophen 325 Mg Tablet) 650 mg PO Q6H PRN PRN Reason: Pain, Mild (Pain Scale 1-3) Last Admin: 09/12/22 20:19 Dose: 650 mg Documented By: SANJEEV Albuterol Sulfate (Albuterol Sulfate (0.083%) 2.5 Mg/3 Ml Vial.Neb) 2.5 mg INHALE RQ4H WHILE AWAKE PRN PRN Reason: wheezing Albuterol/Ipratropium (Albuterol/Iprat 2.5/0.5mg 3 Ml Ampul.Neb) 3 ml INHALE Q6H ON LICENSE OF [facility] Last Admin: 09/13/22 09:50 Dose: 3 ml Documented By: MICKI Atorvastatin Calcium (Atorvastatin Calcium 80 Mg Tablet) 80 mg PO BEDTIME ON LICENSE OF [facility] Last Admin: 09/12/22 19:36 Dose: 80 mg Documented By: SANJEEV Clopidogrel Bisulfate (Clopidogrel Bisulfate 75 Mg Tablet) 75 mg PO DAILY ON LICENSE OF [facility] Last Admin: 09/13/22 07:39 Dose: 75 mg Documented By: MAIDA Docusate Sodium (Docusate Sodium 100 Mg Capsule) 100 mg PO DAILY ON LICENSE OF [facility] Last Admin: 09/13/22 07:39 Dose: 100 mg Documented By: MAIDA Escitalopram Oxalate (Escitalopram Oxalate 10 Mg Tablet) 10 mg PO DAILY ON LICENSE OF [facility] Last Admin: 09/13/22 07:39 Dose: 10 mg Documented By: MAIDA Fluticasone Propionate (Fluticasone Propionate Nasal 16 Gm Coin) 1 spray NOSTRIL-B Q12H PRN PRN Reason: Allergy Symptoms Guaifenesin (Guaifenesin La 600 Mg Tab.Er.12h) 600 mg PO BID PRN PRN Reason: cough Last Admin: 09/12/22 08:49 Dose: 600 mg Documented By: REESE Heparin Sodium (Porcine) (Heparin Sodium,Porcine 5,000 Unit/Ml Vial) 5,000 unit SUBCUT Q12H ON LICENSE OF [facility] Last Admin: 09/13/22 05:26 Dose: Not Given Documented By: VIRGINIE Non-Admin Reason: Patient Refused Hydroxyzine HCl (Hydroxyzine Hcl 25 Mg Tablet) 25 mg PO Q6H PRN PRN Reason: pruitis Last Admin: 09/11/22 20:13 Dose: 25 mg Documented By: NARUSLANOC Levetiracetam (Levetiracetam 250 Mg Tablet) 250 mg PO BEDTIME ON LICENSE OF [facility] Last Admin: 09/12/22 19:36 Dose: 250 mg Documented By: SANJEEV Levetiracetam (Levetiracetam 500 Mg Tablet) 500 mg PO DAILY ON LICENSE OF [facility] Last Admin: 09/13/22 07:39 Dose: 500 mg Documented By: MAIDA Levothyroxine Sodium (Levothyroxine Sodium 150 Mcg Tablet) 150 mcg PO DAILY@0630 ON LICENSE OF [facility] Last Admin: 09/13/22 05:26 Dose: 150 mcg Documented By: VIRGINIE Loratadine (Loratadine 10 Mg Tablet) 10 mg PO DAILY ON LICENSE OF [facility] Last Admin: 09/13/22 07:39 Dose: 10 mg Documented By: MAIDA Omeprazole (Omeprazole 40 Mg Capsule.) 40 mg PO DAILY@0630 ON LICENSE OF [facility] Last Admin: 09/13/22 05:26 Dose: 40 mg Documented By: VIRGINIE Ondansetron HCl (Ondansetron Hcl 4 Mg/2 Ml Vial) 4 mg IVPUSH Q8H PRN PRN Reason: Nausea and Vomiting Pharmacy Consult (Consult Rx Perform Med Rec) 1 each MISCELLANE ONCE PRN PRN Reason: Consult order Polyethylene Glycol (Polyethylene Glycol 3350 17 Gm Powd.Pack) 17 gm PO BID ON LICENSE OF [facility] Last Admin: 09/13/22 07:40 Dose: 17 gm Documented By: MAIDA Potassium Phos/Sodium Phos (Sodium,Potassium Phosphates Powd.Pack) 1 packet PO BID ON LICENSE OF [facility] Last Admin: 09/13/22 07:40 Dose: 1 packet Documented By: MAIDA Prednisone (Prednisone 10 Mg Tablet) 50 mg PO DAILY ON LICENSE OF [facility] Last Admin: 09/13/22 07:39 Dose: 50 mg Documented By: MAIDA Sodium Chloride (0.9 % Sodium Chloride Flush 3 Ml Syringe) 3 ml IVFLUSH QSHIFT ON LICENSE OF [facility] Last Admin: 09/13/22 07:39 Dose: 3 ml Documented By: MAIDA Tizanidine HCl (Tizanidine Hcl 4 Mg Tablet) 4 mg PO DAILY@1300 ON LICENSE OF [facility] Last Admin: 09/12/22 13:50 Dose: 4 mg Documented By: REESE Triamcinolone Acetonide (Triamcinolone Acet 0.5 % Cream 15 Gm Tube) 1 appl TOPICAL BID ON LICENSE OF [facility]; Protocol Last Admin: 09/13/22 07:47 Dose: Not Given Documented By: MAIDA Non-Admin Reason: Patient Refused Labs CBC & Chem 7: 09/11/22 09:11 09/11/22 09:11 Labs: Laboratory Results - last 24 hr 09/13/22 06:43 Phosphorus 2.8 Assessment and Plan (1) Respiratory failure with hypoxia and hypercapnia: Status: Acute Plan Acute hypoxic and hypercarbic respiratory failure secondary to COPD with chronic CO2 retention and influenza A with possible underlying obstructive sleep apnea /obesity hypoventilation syndrome Patient oxygen requirement improved currently on OxyMask 5 L, doesn't tolerate BiPAP Wean oxygen as tolerated, finished 5 days of Tamiflu. Has completed ceftriaxone on azithromycin Probably has chronic pCO2 of 50-60 Patient is bed ridden/wheelchair bound does not tolerate out of bed to chair Recommend incentive spirometry, continue DuoNeb q.i.d. Wean steroids 10 mg Q weekly, although patient is on high-dose steroids for skin rash that is improving. Obesity likely due to excess calories weight reduction recommended Metabolic encephalopathy due to CO2 narcosis resolved Hypernatremia, resolved will DC IV fluids Acute kidney injury resolved will DC IV fluids creatinine 1.07 on 09/11 Metabolic alkalosis likely compensatory with CO2 narcosis resolved, Diamox discontinued History of seizure on Keppra, continue seizure precaution Constipation/stool impaction resolved Rash on anterior chest likely eczema improving will wean prednisone, on prednisone 60 mg po will transition to prednisone 50 mg daily, continue Kenalog cream b.i.d. Status post CVA with left hemiparesis since 2003 bed bound and on wheelchair on Plavix Cystic lesion of the pancreatic neck recommend outpatient follow-up, no pancreatic duct dilatation, background of generalized pancreatic atrophy Hypophosphatemia. ph 2.8, on Neutra-Phos 1 packet b.i.d.follow ph level Right kidney non obstructive nephropathy. Code status full code DVT prophylaxis on heparin subQ Patient need continued inpatient hospitalization due to hypoxic and hypercarbic respiratory failure, will return back to [facility] in 1 to 2 days once O2 is stable Time Spent With Patient Time: Total time managing care of this patient today ____ minutes. Quality Stroke Does the patient have a stroke diagnosis?: No VTE Prior VTE?: No VTE Risk Level:: Medical - moderate - high VTE Device Contraindication: Treatment Not Indicated VTE Drug Contraindication: N/A - Med Ordered
[2022-09-13] MEDS: TiZANidine HCL 4 MG TABLET PO (12:46)
[2022-09-13] MEDS: Albuterol Sulfate (0.083%) 2.5 MG/3 ML VIAL.NEB INHALE (15:57)
[2022-09-13] MEDS: levETIRAcetam 250 MG TABLET PO (20:52)
[2022-09-13] MEDS: Atorvastatin Calcium 80 MG TABLET PO (20:52)
--- NOTE | 2022-09-14 02:35 | MHC.PIE ---
P.6 BEAT VTACH I.[address] BEAT [address]ACH REPORTED TO DR ROPER,PT ASYMPTOMATIC.ORDER FOR STAT BMP AND MAG GIVEN. E.CONT TO MONITOR
[2022-09-14 03:34] VITALS: BP 162/71; PULSE 64; RESP 20; TEMP 37.2; O2SAT 97
[2022-09-14 03:59] LABS: Anion Gap 8 (12-20); Blood Urea Nitrogen 36 mg/dL (9-16); Calcium 9.4 mg/dL (8.4-10.2); Carbon Dioxide 33 mmol/L (22-29); Chloride 111 mmol/L (96-108); Estimated Glomerular Filt Rate > 60; Glucose Random 109 mg/dL (60-115); Magnesium 1.7 mg/dL (1.6-2.6); Potassium 4.7 mmol/L (3.3-5.1); Sodium 147 mmol/L (135-145)
[2022-09-14 05:43] VITALS: BMI 39.3
[2022-09-14] MEDS: Levothyroxine Sodium 150 MCG TABLET PO (06:12)
[2022-09-14] MEDS: Omeprazole 40 MG CAPSULE.DR PO (06:12)
[2022-09-14 07:11] VITALS: BP 137/64; PULSE 67; RESP 18; TEMP 36.4; O2SAT 93
[2022-09-14] MEDS: levETIRAcetam 500 MG TABLET PO (10:11)
[2022-09-14] MEDS: predniSONE 10 MG TABLET 50 MG PO (10:11)
[2022-09-14] MEDS: Escitalopram Oxalate 10 MG TABLET PO (10:11)
[2022-09-14] MEDS: Docusate Sodium 100 MG CAPSULE PO (10:11)
[2022-09-14] MEDS: Loratadine 10 MG TABLET PO (10:12)
[2022-09-14] MEDS: Clopidogrel Bisulfate 75 MG TABLET PO (10:12)
[2022-09-14] MEDS: Sodium,Potassium Phosphates POWD.PACK 1 PACKET PO ×2 (10:13→20:02)
[2022-09-14] MEDS: polyethylene glycoL 3350 17 GM POWD.PACK PO (10:13)
[2022-09-14 11:23] VITALS: BP 124/56; PULSE 70; RESP 16; TEMP 36.6; O2SAT 94
[2022-09-14] MEDS: TiZANidine HCL 4 MG TABLET PO (12:42)
[2022-09-14 15:44] VITALS: BP 132/63; PULSE 89; RESP 18; TEMP 37.1; O2SAT 93
[2022-09-14 19:52] VITALS: BP 133/79; PULSE 88; RESP 19; TEMP 37; O2SAT 93
[2022-09-14] MEDS: Acetaminophen 325 MG TABLET 650 MG PO (19:56)
[2022-09-14] MEDS: levETIRAcetam 250 MG TABLET PO (19:57)
[2022-09-14] MEDS: hydrOXYzine HCL 25 MG TABLET PO (19:58)
[2022-09-14] MEDS: Atorvastatin Calcium 80 MG TABLET PO (19:58)
[2022-09-14] MEDS: OLANZapine 5 MG TABLET PO (23:27)
[2022-09-15] VITALS: BP 155/74; PULSE 79; RESP 18; TEMP 37.1; O2SAT 96
[2022-09-15] MEDS: guaiFENesin LA 600 MG TAB.ER.12H PO (02:35)
[2022-09-15 04:00] VITALS: BP 118/68; PULSE 64; RESP 20; TEMP 37.1; O2SAT 96
[2022-09-15 05:24] VITALS: BMI 39.7
[2022-09-15] MEDS: Levothyroxine Sodium 150 MCG TABLET PO (05:28)
[2022-09-15] MEDS: Omeprazole 40 MG CAPSULE.DR PO (05:29)
[2022-09-15 07:33] VITALS: BP 159/67; PULSE 61; RESP 16; TEMP 36.3; O2SAT 96
[2022-09-15] MEDS: Sodium,Potassium Phosphates POWD.PACK 1 PACKET PO (08:52)
[2022-09-15] MEDS: predniSONE 10 MG TABLET 50 MG PO (08:53)
[2022-09-15] MEDS: levETIRAcetam 500 MG TABLET PO (08:54)
[2022-09-15] MEDS: Escitalopram Oxalate 10 MG TABLET PO (08:54)
[2022-09-15] MEDS: Docusate Sodium 100 MG CAPSULE PO (08:55)
[2022-09-15] MEDS: Loratadine 10 MG TABLET PO (08:56)
[2022-09-15] MEDS: Clopidogrel Bisulfate 75 MG TABLET PO (08:56)
--- NOTE | 2022-09-15 11:49 | PM.DS ---
DS: Providers Provider Date of Service: 09/15/22 Date of admission: 09/06/22 15:22 Primary care physician: Juan Jose Doran MD Consults: 09/09/22 08:07 Consult to Pulmonology Routine Consulting Provider: Lianna Agiular Reason for consultation: co2 narcosis Has provider been notified: No DS: Diagnosis Discharge Diagnosis (1) Respiratory failure with hypoxia and hypercapnia: Status: Resolved DS: Summary Hospital Course Hospital Course: pH 7.21, pCO 91.? Pt lethargic, minimally responsive to sternal rub.? Place on BiPAP and target SaO2 no greater than 91%. Discussed with pt's HCP Loretta Woods, a friend [pt has no family members].? Pt is full code Discussed with equipment inspector Dr Adhikari and will transfer to ICU for rescue Chief Complaint: SOB? ?82-year-old woman presenting from shelter facility with hypoxia, oxygen saturation of 75% on room air.? Apparently the patient had tested positive for influenza at the shelter facility and again while in the ER.? Was given DuoNebs and oxygen via face mask and her saturations did improve up to the high 90s.? Patient is mostly bed ridden and wheelchair-bound.? Unfortunately patient was unable to give any information she is lethargic and there is believed to be a component of dementia as well Chest CT showing dependent consolidation of both lungs, likely reflecting atelectasis with possible superimposed infection, abdominal CT showing severe constipation with desiccated stool ball at the rectal vault.? Sodium 148, patient received 1 L of normal saline in the ER.? BNP 2 in 86 however patient does not appear to be in heart failure.? Flu A positive.? In the ER, she received albuterol, Solu-Medrol, Rocephin, azithromycin and 2 Fleet enemas.? To be admitted for further management and treatment of acute hypoxic respiratory failure secondary to viral pneumonia and influenza A.? Hospital course: This patient with underlying pneumonia and chronic respiratory failure with COPD and CO2 retention presented with shortness of and found to have acute acute hypoxic and hypercarbic respiratory failure secondary in setting of influenza A and probably obesity hypoventilation syndrome. Influenza was treated with Tamiflu, she was on supplemental oxygen , decompensated during the course of hospitalization and was transfer to ICU and treated with BiPAP and later transition to high flow nasal canula which has gradually been weaned to oxygen by nasal canula and presently at 3 liters Obesity likely due to excess calories weight reduction recommended Metabolic encephalopathy due to CO2 narcosis? resolved Hypernatremia, resolved will DC IV fluids Acute kidney injury resolved will DC IV fluids creatinine 1.07 on 09/11 Metabolic alkalosis likely compensatory with CO2 narcosis resolved, Diamox discontinued History of seizure on Keppra, continue seizure precaution Constipation/stool impaction resolved Rash on anterior chest likely eczema improving will wean prednisone, on prednisone 60 mg po will transition to prednisone 50 mg daily, continue Kenalog cream b.i.d. Status post CVA with left hemiparesis since 2003 bed bound and on wheelchair on Plavix Cystic lesion of the pancreatic neck recommend outpatient follow-up, no pancreatic duct dilatation, background of generalized pancreatic atrophy Hypophosphatemia. ph 2.8, on Neutra-Phos 1 packet b.i.d.follow ph level Right kidney non obstructive nephropathy. Time Spent with Patient Time attestation: Total time managing care of this patient today ____ minutes. Discharge coordination time: Greater than 30 minutes Quality: Safe Use of Opioids Does Pt have an Active Cancer Diagnosis on the Problem List?: No Quality: Stroke Does the patient have a stroke diagnosis?: No Physical Exam Vital Signs: Vital Signs: Last Vital Signs Temp 97.4 F 09/15/22 07:33 Pulse 61 09/15/22 07:33 Resp 16 09/15/22 07:33 BP 159/67 H 09/15/22 07:33 Pulse Ox 96 09/15/22 07:33 O2 Del Method 09/15/22 07:33 O2 Flow Rate 4 09/15/22 07:33 FiO2 35 09/12/22 07:18 Oxygen Flow Rate 5 09/06/22 10:06 BMI result Body Mass Index 39.7 Discharge Plan Discharge Anticipated Discharge Date/Time: 09/15/22 11:48 Patient Disposition: Xfer LTC Discharge Diagnosis: Acute hypoxic respiratory failure Influenza A Obesity Referrals: [facility] Bust[facility] [Outside] - 1 Week Juan Jose Doran MD [Primary Care Provider] - 1 Week Discharge Medications: Continued atorvastatin 80 mg tablet 80 mg PO BEDTIME acetaminophen 325 mg Tablet 650 mg PO Q4H PRN (Reason: Pain) tizanidine 4 mg Tablet 4 mg PO DAILY@1300 prednisone 20 mg Tablet 60 mg PO DAILY clopidogrel [Plavix] 75 mg Tablet 75 mg PO DAILY triamcinolone acetonide 0.1 % Cream 1 appl TOPICAL BID Rx Instructions: apply to face benzocaine 15 mg Lozenge 15 mg MUCOUS MEMBRANE Q2H PRN (Reason: Sore Throat) levetiracetam 250 mg Tablet 250 mg PO BEDTIME levetiracetam 250 mg Tablet 500 mg PO DAILY levothyroxine 150 mcg Tablet 150 mcg PO DAILY docusate sodium 100 mg Capsule 100 mg PO DAILY hydrocortisone 2.5 % Cream 1 appl TOPICAL Q12H PRN (Reason: Pruritis) Rx Instructions: Apply to face hydroxyzine HCl 25 mg Tablet 25 mg PO Q6H PRN (Reason: pruitis) polyethylene glycol 3350 [Miralax] 17 gram/dose Powder 17 g PO DAILY Acidophilus Capsule 1 cap PO DAILY fluticasone propionate 50 mcg/actuation [place],Suspension 1 spray INTRANASAL Q12H PRN (Reason: Allergy Symptoms) Rx Instructions: administer into each nostril loratadine 10 mg Tablet 10 mg PO DAILY Artificial Tears([id number]) 1-0.2-0.2 % Drops 1 drp OPHTHALMIC (EYE) Q8H PRN (Reason: Dry Eye(S)) escitalopram oxalate 10 mg Tablet 10 mg PO DAILY ipratropium-albuterol 0.5 mg-3 mg(2.5 mg base)/3 mL Solution For Nebulization 3 ml INHALATION Q4H PRN (Reason: Shortness Of Breath Or Wheezing) Discontinued azithromycin 250 mg tablet 250 mg PO DAILY Rx Instructions: x 4 days, finish 08/31/22 Discharge Orders: Discharge Order (Routine); Ordered 09/15/22 Ordered By: Dawson uLque Diet: Advance to usual diet Activity on Discharge: As tolerated Stand Alone Forms: Patient Portal Discharge page Care Plan Goals: recovery from respiratory failure Health Concerns: chronic respiratory failure, copd hypoventilation Plan of Treatment: Use oxygen as directed to maintain oxygen saturaation no more than 93 Assessment: as above Discharge Date/Time: 09/15/22 14:22
[2022-09-15 11:56] VITALS: BP 116/62; PULSE 62; RESP 17; TEMP 36.4; O2SAT 93
[2022-09-15 11:58] VITALS: BP 116/58; PULSE 62; RESP 19; TEMP 36.4; O2SAT 90
[2022-09-15] MEDS: TiZANidine HCL 4 MG TABLET PO (12:11)
--- NOTE | 2022-09-15 12:28 | MHC.CM.PN ---
Per ROUNDS discussion, Patient will be medically cleared for dc to return to LTC today. Patient will return to LTC @ [facility] today at 2PM, via [facility]. TRACI left a detailed message for Primary Contact/Christie @ [phone] informing her of the dc plan and addressing the IMM(Original to be mailed certified mail to Christie and a copy has been placed on the chart).
[2022-09-15 13:12] LABS: COVID-19 Test Negative (Negative); IDNOW Serial# BCCEAD1C
== END 2022-09-15 14:22 | DRG 193 ==
LOC: HO.ED 15:15 → HO.EDOVER 16:06 → HO.S3 16:49 → HO.ICU 18:38 → HO.IMC 09-09 03:01
PROVIDERS: Anesthesiology; Hospitalist; Internal Medicine; Nurse Practitioner Family; Physician Assistant Medical; Admitting Provider Nurse Practitioner Acute Care; Emergency Provider Emergency Medicine; PCP Family Medicine; Visit Provider Internal Medicine
DX: J10.08 Influenza due to other identified influenza virus with other specified pneumonia (principal); G93.41 Metabolic encephalopathy; J96.01 Acute respiratory failure with hypoxia; J96.02 Acute respiratory failure with hypercapnia; E66.2 Morbid (severe) obesity with alveolar hypoventilation; I69.354 Hemiplegia and hemiparesis following cerebral infarction affecting left non-dominant side; E87.0 Hyperosmolality and hypernatremia; E87.3 Alkalosis; K86.2 Cyst of pancreas; N17.9 Acute kidney failure, unspecified; J12.9 Viral pneumonia, unspecified; J44.0 Chronic obstructive pulmonary disease with (acute) lower respiratory infection; J44.1 Chronic obstructive pulmonary disease with (acute) exacerbation; E78.5 Hyperlipidemia, unspecified; E03.9 Hypothyroidism, unspecified; G40.909 Epilepsy, unspecified, not intractable, without status epilepticus; B37.2 Candidiasis of skin and nail; E86.1 Hypovolemia; K56.41 Fecal impaction; L30.9 Dermatitis, unspecified; Z68.39 Body mass index [BMI] 39.0-39.9, adult; Z87.891 Personal history of nicotine dependence; Z20.822 Contact with and (suspected) exposure to COVID-19; Z99.3 Dependence on wheelchair; Z79.51 Long term (current) use of inhaled steroids; Z79.02 Long term (current) use of antithrombotics/antiplatelets; Z79.890 Hormone replacement therapy; Z79.899 Other long term (current) drug therapy
CPT/HCPCS: 0241U; 36415; 36600; 71045; 71250; 74176; 80048; 80053; 80076; 81001; 82040; 82803; 83605; 83690; 83735; 83880; 84100; 84145; 84300; 84484; 85025; 85027; 87040; 87635; 93005; 93306; 94640; 94660; 99284; C1758; J0456; J0696; J1953; J2920; J2930; J3475; P9047; Q9957

== ENCOUNTER 2022-10-18 06:47 | Outpatient (REF) | payer MEDICAID, SELFPAY ==
[2022-10-18 06:41] LABS: MANUAL DIFF FLAG NO
[2022-10-18 07:11] LABS: Basophils Percent Auto 0.2 % (0-2); Eosinophils Absolute Auto 0.1 X10*3/uL (0.0-0.4); Eosinophils Percent Auto 0.6 % (0-4); Hematocrit 39.3 % (37.0-47.0); Hemoglobin 11.7 g/dl (12.0-16.0); Imm Gran Abs Auto 0.15 X10*3/uL (0.00-0.03); Imm Gran Pct Auto 1.4 % (0.0-0.4); Lymphocytes Absolute Auto 0.8 X10*3/uL (1.2-4.9); Lymphocytes Percent Auto 7.4 % (20-40); Mean Corpuscular HGB Conc 29.8 g/dl (31.0-35.0); Mean Corpuscular Hemoglobin 27.2 pg (27.0-33.0); Mean Corpuscular Volume 91.4 fL (80.0-98.0); Mean Platelet Volume 9.3 fL (9.4-12.3); Monocytes Absolute Auto 0.6 X10*3/uL (0.1-1.2); Monocytes Percent Auto 5.9 % (2-11); Neutrophils Absolute Auto 9.1 x10*3/uL (2.0-8.3); Neutrophils Percent Auto 84.5 % (45-73); Platelet Count 121 X10*3/uL (160-400); Red Cell Distribution Width 15.4 % (11.0-16.0); White Blood Count 10.8 X10*3/uL (4.8-10.8)
[2022-10-18 07:40] LABS: Alanine Aminotransferase 34 U/L (0-31); Albumin Level 3.4 g/dL (3.5-5.0); Alkaline Phosphatase 79 U/L (39-117); Anion Gap 10 (12-20); Aspartate Amino Transferase 12 U/L (5-31); Bilirubin Total 1.1 mg/dL (0.0-1.0); Blood Urea Nitrogen 34 mg/dL (9-16); Calcium 9.5 mg/dL (8.4-10.2); Carbon Dioxide 37 mmol/L (22-29); Chloride 105 mmol/L (96-108); Estimated Glomerular Filt Rate > 60; Glucose Random 95 mg/dL (60-115); Potassium 4.5 mmol/L (3.3-5.1); Sodium 147 mmol/L (135-145); Total Protein 5.2 g/dL (6.5-8.0)
== END 2022-10-18 06:48 | disposition home or self-care (01) ==
LOC: HO.MMNH3L 06:47
PROVIDERS: Visit Provider Family Medicine
DX: E03.9 Hypothyroidism, unspecified (principal); J44.9 Chronic obstructive pulmonary disease, unspecified; Z20.828 Contact with and (suspected) exposure to other viral communicable diseases
CPT/HCPCS: 36415; 80053; 85025

== ENCOUNTER 2022-11-01 06:51 | Outpatient (REF) | payer MEDICAID, SELFPAY ==
[2022-11-01 06:41] LABS: MANUAL DIFF FLAG NO
[2022-11-01 07:05] LABS: Basophils Percent Auto 0.2 % (0-2); Eosinophils Percent Auto 0.3 % (0-4); Hematocrit 37.3 % (37.0-47.0); Hemoglobin 11.2 g/dl (12.0-16.0); Lymphocytes Absolute Auto 0.6 X10*3/uL (1.2-4.9); Mean Corpuscular Hemoglobin 27.4 pg (27.0-33.0); Mean Corpuscular Volume 91.2 fL (80.0-98.0); Mean Platelet Volume 9.7 fL (9.4-12.3); Monocytes Absolute Auto 0.5 X10*3/uL (0.1-1.2); Monocytes Percent Auto 5.3 % (2-11); Neutrophils Absolute Auto 8.5 x10*3/uL (2.0-8.3); Neutrophils Percent Auto 84.2 % (45-73); Platelet Count 111 X10*3/uL (160-400); Red Blood Count 4.09 X10*6/uL (4.20-5.50); Red Cell Distribution Width 15.5 % (11.0-16.0); White Blood Count 10.1 X10*3/uL (4.8-10.8)
[2022-11-01 07:21] LABS: Alanine Aminotransferase 32 U/L (0-31); Albumin Level 3.2 g/dL (3.5-5.0); Alkaline Phosphatase 77 U/L (39-117); Anion Gap 12 (12-20); Aspartate Amino Transferase 11 U/L (5-31); Bilirubin Total 0.9 mg/dL (0.0-1.0); Blood Urea Nitrogen 36 mg/dL (9-16); Calcium 9.7 mg/dL (8.4-10.2); Carbon Dioxide 34 mmol/L (22-29); Chloride 105 mmol/L (96-108); Estimated Glomerular Filt Rate > 60; Glucose Random 117 mg/dL (60-115); Potassium 4.4 mmol/L (3.3-5.1); Sodium 147 mmol/L (135-145); Total Protein 5.1 g/dL (6.5-8.0)
== END 2022-11-01 06:52 | disposition home or self-care (01) ==
LOC: HO.MMNH3L 06:51
PROVIDERS: Visit Provider Family Medicine
DX: I89.0 Lymphedema, not elsewhere classified (principal); E78.5 Hyperlipidemia, unspecified
CPT/HCPCS: 36415; 80053; 85025

== ENCOUNTER 2022-12-05 15:21 | Emergency (ER) | payer MEDICAID, SELFPAY ==
--- NOTE | ~2022-12-05 | XR_ITS ---
EXAMINATION: XR CHEST CLINICAL INFORMATION: Altered mental status. COMPARISON: CT chest 09/06/2022. Chest radiograph 09/06/2022. TECHNIQUE: Frontal view of the chest was obtained. FINDINGS: Unchanged prominence of the cardiomediastinal silhouette. Similar degree of chronic interstitial thickening. Stable mild blunting of the right lateral costophrenic angle. No new focal infiltrate, significant pleural effusion or pneumothorax. No acute osseous abnormalities. Thoracolumbar scoliosis. XR/XR chest 1V IMPRESSION: 1. No acute cardiopulmonary findings. 2. Similar degree of chronic interstitial thickening. 3. Stable prominence of the cardiomediastinal silhouette.
[2022-12-05 15:34] VITALS: BP 115/56; BP 124/62; PULSE 74; PULSE 75; RESP 14; TEMP 37.2; O2SAT 94; BMI 34.6
--- NOTE | 2022-12-05 15:38 | ECG_ITS ---
Test Reason : ALTERED MENTAL Blood Pressure : / mmHG Vent. Rate : 077 BPM Atrial Rate : 077 BPM P-R Int : 152 ms QRS Dur : 100 ms QT Int : 376 ms P-R-T Axes : 034 -16 062 degrees QTc Int : 425 ms Normal sinus rhythm Moderate voltage criteria for LVH, may be normal variant ( R in aVL , [place] product ) Cannot rule out Anterior infarct , age undetermined Abnormal ECG When compared with ECG of 06-SEP-2022 10:37, No significant changes seen Referred By: Neema Isbell Electronically Signed By:SALOMÓN AGUILAR
--- NOTE | 2022-12-05 15:38 | ED_ITS ---
HPI - Altered Mental Status General Chief Complaint: Altered Mental Status <Neema Isbell NP - Last Filed: 12/07/22 15:16> Stated Complaint: AMS <Neema Isbell NP - Last Filed: 12/07/22 15:16> Time Seen by Provider: 12/05/22 15:38 <Neema Isbell NP - Last Filed: 12/07/22 15:16> Source: patient and EMS <Neema Isbell NP - Last Filed: 12/07/22 15:16> Mode of arrival: EMS <Neema Isbell NP - Last Filed: 12/07/22 15:16> Limitations: no limitations <Neema Isbell NP - Last Filed: 12/07/22 15:16> History of Present Illness HPI narrative: This is an 82-year-old female who comes from a custodial facility with a past medical history of COPD, CVA with left-sided weakness, seizure disorder, depression, GERD, hypothyroidism with concern for change in behavior. Per report from nursing at the patient has been on prednisone for several weeks and this was thought to have caused her AMS so it was discontinued 11/25. Patient is also currently being treated for pneumonia with oral antibiotics. Per report from nursing patient has been threatening staff, combative, throwing glass dishes in TV remote at other residents and making suicidal statements while also trying to strangle herself with her call back. Patient feels that her breathing is still labored and she still has some chest congestion and cough but denies any fevers, chills, chest pain, leg swelling or leg pain. <Neema Isbell NP - Last Filed: 12/07/22 15:16> Related Data Home Medications: Home Medications Medication Instructions Recorded Confirmed Lactobacillus acidophilus 1 cap PO DAILY 09/06/22 12/05/22 (Acidophilus capsule) acetaminophen 325 mg tablet 650 mg PO Q4H PRN Pain 09/06/22 12/05/22 atorvastatin 80 mg tablet 80 mg PO BEDTIME 09/06/22 12/05/22 benzocaine 15 mg lozenges 15 mg mucous membrane Q2H PRN Sore 09/06/22 12/05/22 Throat clopidogrel 75 mg tablet (Plavix) 75 mg PO DAILY 09/06/22 12/05/22 docusate sodium 100 mg capsule 100 mg PO DAILY 09/06/22 12/05/22 escitalopram oxalate 10 mg tablet 10 mg PO DAILY 09/06/22 12/05/22 fluticasone propionate 50 1 spray intranasal Q12H PRN 09/06/22 12/05/22 mcg/actuation nasal Allergy Symptoms spray,suspension hydrocortisone 2.5 % topical cream 1 appl topical Q12H PRN Pruritis 09/06/22 12/05/22 levetiracetam 250 mg tablet 250 mg PO BEDTIME 09/06/22 12/05/22 levetiracetam 250 mg tablet 500 mg PO DAILY 09/06/22 12/05/22 levothyroxine 150 mcg tablet 150 mcg PO DAILY@0600 09/06/22 12/05/22 loratadine 10 mg tablet 10 mg PO DAILY 09/06/22 12/05/22 peg [id number] 1 1 drp ophthalmic (eye) Q8H PRN Dry 09/06/2211/11 %-0.2 %-0.2 % eye drops Eye(S) (Artificial Tears ([id number])) polyethylene glycol 3350 17 17 g PO DAILY 09/06/22 12/05/22 gram/dose oral powder (Miralax) tizanidine 4 mg tablet 4 mg PO DAILY@1300 09/06/22 12/05/22 triamcinolone acetonide 0.1 % 1 appl topical BID 09/06/22 12/05/22 topical cream albuterol sulfate 90 mcg/actuation 2 inh inhalation Q6H PRN Shortness 12/05/22 12/05/22 breath activated powder inhaler Of Breath Or Wheezing aluminum-mag hydroxide-simethicone 30 ml PO QID PRN Indigestion 12/05/22 12/05/22 200 mg-200 mg-20 mg/5 mL oral susp bisacodyl 10 mg rectal suppository 10 mg MD DAILY PRN Constipation 12/05/22 12/05/22 ipratropium 20 mcg-albuterol 100 1 puff inhalation QID 12/05/22 12/05/22 mcg/actuation mist for inhalation (Combivent Respimat) magnesium hydroxide 400 mg/5 mL 30 ml PO DAILY PRN Constipation 12/05/22 12/05/22 oral suspension (Milk of Magnesia) sodium phosphates 19 gram-7 118 ml MD DAILY PRN Constipation 12/05/22 12/05/22 gram/118 mL enema (Fleet Enema) <Neema Isbell NP - Last Filed: 12/07/22 15:16> Allergies/Adverse Reactions: Allergies Allergy/AdvReac Type Severity Reaction Status Date / Time No Known Allergies Allergy Verified 09/06/22 10:14 <Neema Isbell ELECTRICAL SERVICE TECHNICIAN - Last Filed: 12/07/22 15:16> Review of Systems Review of Systems: Yes all other systems are reviewed and are negative <Neema Isbell NP - Last Filed: 12/07/22 15:16> Constitutional: Constitutional: Reports no additional constitutional complaints, Denies body ache(s), Denies chills, Denies fever(s), Denies headache(s) and Denies weakness <Neema Isbell ELECTRICAL SERVICE TECHNICIAN - Last Filed: 12/07/22 15:16> Eyes: Eyes: Reports no additional eye complaints and Denies change in vision <Neema Isbell ELECTRICAL SERVICE TECHNICIAN - Last Filed: 12/07/22 15:16> ENT: Reports system reviewed and no additional complaints, except as documented, Denies dizziness, Denies headache(s), Denies nasal congestion, Denies nasal discharge and Denies neck pain <Neema Isbell NP - Last Filed: 12/07/22 15:16> Cardiovascular: Cardiovascular: Reports no additional cardiovascular complaints, Denies chest pain, Denies leg edema and Reports dyspnea <Neema Isbell ELECTRICAL SERVICE TECHNICIAN - Last Filed: 12/07/22 15:16> Respiratory: Respiratory: Reports no additional respiratory complaints, Rep orts cough and Reports dyspnea <Neema Isbell ELECTRICAL SERVICE TECHNICIAN - Last Filed: 12/07/22 15:16> Gastrointestinal: Gastrointestinal: Reports no additional gastrointestinal complaints, Denies abdominal pain, Denies diarrhea, Denies nausea and Denies vomiting <Neema Isbell ELECTRICAL SERVICE TECHNICIAN - Last Filed: 12/07/22 15:16> Genitourinary: Genitourinary: Reports no additional female genitourinary complaints and Denies urinary incontinence <Neema Isbell NP - Last Filed: 12/07/22 15:16> Musculoskeletal: Musculoskeletal: Reports no additional musculoskeletal complaints, Denies back pain, Denies arthralgias, Denies joint swelling, Denies neck pain, Denies numbness and Denies tingling <Neema Isbell NP - Last Filed: 12/07/22 15:16> Integumentary/Breasts: Skin/Breast: Reports system reviewed and no additional complaints, except as docu and Denies rash <Neema Isbell NP - Last Filed: 12/07/22 15:16> Neurologic: Reports system reviewed and no additional complaints, except as documented, Reports behavioral changes, Denies dizziness, Denies headache(s), Denies numbness, Denies tingling and Denies weakness <Neema Isbell NP - Last Filed: 12/07/22 15:16> Psychiatric: Psychiatric: Reports behavioral changes <Neema Isbell NP - Last Filed: 12/07/22 15:16> [facility] Past Medical History Attestation statement: The following information was validated with the patient. <Neema Isbell NP - Last Filed: 12/07/22 15:16> Source: old records reviewed and nursing notes reviewed <Neema Isbell NP - Last Filed: 12/07/22 15:16> Medical History: Medical History Cardiomyopathy Constipation COPD (chronic obstructive pulmonary disease) CVA (cerebral vascular accident) Depression Dysphagia Hemiparesis Hyperlipidemia Hypothyroidism Hypoventilation associated with obesity Mild bibasilar atelectasis Obesity BERNARD (obstructive sleep apnea) Respiratory failure with hypoxia and hypercapnia Seizure disorder TIA (transient ischemic attack) <Neema Isbell NP - Last Filed: 12/07/22 15:16> Social History Social History: Social History Housing: Long Term Unable to assess alcohol history related to: Unable to respond Patient Tobacco Use Status: Former Tobacco user Smoked in Last 30 Days: No Use of substances other than those prescribed or required for medical reasons: No Advance Directives: Yes Advance Directives on File: Yes Advance Directives Date on File: 09/08/22 Healthcare Proxy: Yes Guardian: No service: No Current occupational status: retired <Neema Isbell NP - Last Filed: 12/07/22 15:16> Physical Exam ED Vital Signs: Vital Signs - 24 hr 12/06/22 15:58 12/06/22 18:00 12/06/22 20:00 Temperature 98.2 F 98.2 F 97.2 F Pulse Rate 72 74 76 Respiratory Rate 16 16 16 Blood Pressure 93/54 L 94/61 94/61 Pulse Oximetry 98 95 98 Oxygen Delivery Method Nasal Cannula Nasal Cannula Nasal Cannula Oxygen Flow Rate 2 2 2 12/06/22 22:00 12/07/22 00:00 12/07/22 04:40 Temperature 97.9 F 98.7 F 98.3 F Pulse Rate 76 71 80 Respiratory Rate 16 16 20 Blood Pressure 108/57 L 116/51 L 120/55 L Pulse Oximetry 95 96 100 Oxygen Delivery Method Nasal Cannula Nasal Cannula Nasal Cannula Oxygen Flow Rate 2 2 2 12/07/22 05:48 12/07/22 06:14 12/07/22 08:08 Temperature 98.3 F 98.2 F 98.2 F Pulse Rate 83 82 81 Respiratory Rate 13 20 16 Blood Pressure 126/42 L 124/47 L 106/49 L Pulse Oximetry 98 95 94 Oxygen Delivery Method Room Air Nasal Cannula Nasal Cannula Oxygen Flow Rate 2 2 12/07/22 11:23 Temperature Pulse Rate 84 Respiratory Rate 13 Blood Pressure Pulse Oximetry Oxygen Delivery Method Oxygen Flow Rate BMI result Body Mass Index 34.6 <Neema Isbell NP - Last Filed: 12/07/22 15:16> Vital Signs - 24 hr 12/06/22 15:58 12/06/22 18:00 12/06/22 20:00 Temperature 98.2 F 98.2 F 97.2 F Pulse Rate 72 74 76 Respiratory Rate 16 16 16 Blood Pressure 93/54 L 94/61 94/61 Pulse Oximetry 98 95 98 Oxygen Delivery Method Nasal Cannula Nasal Cannula Nasal Cannula Oxygen Flow Rate 2 2 2 12/06/22 22:00 12/07/22 00:00 12/07/22 04:40 Temperature 97.9 F 98.7 F 98.3 F Pulse Rate 76 71 80 Respiratory Rate 16 16 20 Blood Pressure 108/57 L 116/51 L 120/55 L Pulse Oximetry 95 96 100 Oxygen Delivery Method Nasal Cannula Nasal Cannula Nasal Cannula Oxygen Flow Rate 2 2 2 12/07/22 05:48 12/07/22 06:14 12/07/22 08:08 Temperature 98.3 F 98.2 F 98.2 F Pulse Rate 83 82 81 Respiratory Rate 13 20 16 Blood Pressure 126/42 L 124/47 L 106/49 L Pulse Oximetry 98 95 94 Oxygen Delivery Method Room Air Nasal Cannula Nasal Cannula Oxygen Flow Rate 2 2 12/07/22 11:23 Temperature Pulse Rate 84 Respiratory Rate 13 Blood Pressure Pulse Oximetry Oxygen Delivery Method Oxygen Flow Rate BMI result Body Mass Index 34.6 <GILES Almendarez - Last Filed: 12/05/22 22:06> Vital Signs - 24 hr 12/06/22 15:58 12/06/22 18:00 12/06/22 20:00 Temperature 98.2 F 98.2 F 97.2 F Pulse Rate 72 74 76 Respiratory Rate 16 16 16 Blood Pressure 93/54 L 94/61 94/61 Pulse Oximetry 98 95 98 Oxygen Delivery Method Nasal Cannula Nasal Cannula Nasal Cannula Oxygen Flow Rate 2 2 2 12/06/22 22:00 12/07/22 00:00 12/07/22 04:40 Temperature 97.9 F 98.7 F 98.3 F Pulse Rate 76 71 80 Respiratory Rate 16 16 20 Blood Pressure 108/57 L 116/51 L 120/55 L Pulse Oximetry 95 96 100 Oxygen Delivery Method Nasal Cannula Nasal Cannula Nasal Cannula Oxygen Flow Rate 2 2 2 12/07/22 05:48 12/07/22 06:14 12/07/22 08:08 Temperature 98.3 F 98.2 F 98.2 F Pulse Rate 83 82 81 Respiratory Rate 13 20 16 Blood Pressure 126/42 L 124/47 L 106/49 L Pulse Oximetry 98 95 94 Oxygen Delivery Method Room Air Nasal Cannula Nasal Cannula Oxygen Flow Rate 2 2 12/07/22 11:23 Temperature Pulse Rate 84 Respiratory Rate 13 Blood Pressure Pulse Oximetry Oxygen Delivery Method Oxygen Flow Rate BMI result Body Mass Index 34.6 <GILES Carrizales - Last Filed: 12/06/22 10:32> Const General: alert <Neema Isbell ELECTRICAL SERVICE TECHNICIAN - Last Filed: 12/07/22 15:16> Orientation/consciousness: patient oriented x3 <Neema Isbell ELECTRICAL SERVICE TECHNICIAN - Last Filed: 12/07/22 15:16> Limitations: no limitations <Neema Isbell ELECTRICAL SERVICE TECHNICIAN - Last Filed: 12/07/22 15:16> HENMT Head: Yes normal to inspection <Neema Isbell ELECTRICAL SERVICE TECHNICIAN - Last Filed: 12/07/22 15:16> Ears: hearing grossly normal bilaterally and TM's normal bilaterally <Neema Isbell ELECTRICAL SERVICE TECHNICIAN - Last Filed: 12/07/22 15:16> General nose exam: Normal external nose present <Neema Isbell ELECTRICAL SERVICE TECHNICIAN - Last Filed: 12/07/22 15:16> Face and sinus: Yes normal facial exam <Neema Isbell ELECTRICAL SERVICE TECHNICIAN - Last Filed: 12/07/22 15:16> Mouth: Normal oral and palatal mucosa present <Neema Isbell ELECTRICAL SERVICE TECHNICIAN - Last Filed: 12/07/22 15:16> Throat: Yes posterior oropharynx normal, Yes tonsils normal and Yes uvula midline <Neema Isbell ELECTRICAL SERVICE TECHNICIAN - Last Filed: 12/07/22 15:16> Eyes General: appearance normal, both eyes and all related structures <Neema Isbell ELECTRICAL SERVICE TECHNICIAN - Last Filed: 12/07/22 15:16> Pupils: Equal, round and reactive pupils present <Neema Isbell ELECTRICAL SERVICE TECHNICIAN - Last Filed: 12/07/22 15:16> Neck Neck: Yes normal visual inspection, Yes full ROM and Yes no lymphadenopathy <Neema Isbell ELECTRICAL SERVICE TECHNICIAN - Last Filed: 12/07/22 15:16> Chest Chest palpation & inspection: normal inspection of the chest <Neema Isbell ELECTRICAL SERVICE TECHNICIAN - Last Filed: 12/07/22 15:16> Resp Other: Coarse breath sounds throughout <Neema Isbell ELECTRICAL SERVICE TECHNICIAN - Last Filed: 12/07/22 15:16> Effort & Inspection: normal respiratory effort <Neema Isbell ELECTRICAL SERVICE TECHNICIAN - Last Filed: 12/07/22 15:16> Cardio Rate: regular rate <Neema Christianomason, ELECTRICAL SERVICE TECHNICIAN - Last Filed: 12/07/22 15:16> Rhythm: regular rhythm <Neema Christianomason, ELECTRICAL SERVICE TECHNICIAN - Last Filed: 12/07/22 15:16> Peripheral pulses: Peripheral pulses 2+ throughout <Neema Christianomason, ELECTRICAL SERVICE TECHNICIAN - Last Filed: 12/07/22 15:16> GI Inspection: Yes normal to inspection <Neema Akilah, ELECTRICAL SERVICE TECHNICIAN - Last Filed: 12/07/22 15:16> Palpation (GI): Soft to palpation and nontender <Neema Akilah, ELECTRICAL SERVICE TECHNICIAN - Last Filed: 12/07/22 15:16> General: Yes no CVA tenderness <Neema Akilah, ELECTRICAL SERVICE TECHNICIAN - Last Filed: 12/07/22 15:16> Back/Spine/Pelvis Back: no CVA tenderness <Neema Akilah, ELECTRICAL SERVICE TECHNICIAN - Last Filed: 12/07/22 15:16> Thoracic/Lumbar Spine: thoracic and lumbar spine normal to inspection <Neema Akilah, ELECTRICAL SERVICE TECHNICIAN - Last Filed: 12/07/22 15:16> Skin General skin exam: no rashes or lesions noted <Neemadamián Isbell, ELECTRICAL SERVICE TECHNICIAN - Last Filed: 12/07/22 15:16> Neuro Other: Weakness on left side at baseline <Neema Vinhgiana, ELECTRICAL SERVICE TECHNICIAN - Last Filed: 15:16> General: patient oriented x3 and Unable to assess gait <Neemadamián Isbell, ELECTRICAL SERVICE TECHNICIAN - Last Filed: 12/07/22 15:16> Cranial nerves: Yes Equal, round and reactive pupils present <Neema Vinhgiana, ELECTRICAL SERVICE TECHNICIAN - Last Filed: 12/07/22 15:16> Cognition (Neuro): normal cognition <Neema Akilah, ELECTRICAL SERVICE TECHNICIAN - Last Filed: 12/07/22 15:16> Gait exam (Neuro): Unable to assess gait <Neemadamián Isbell, ELECTRICAL SERVICE TECHNICIAN - Last Filed: 12/07/22 15:16> Extrem General: Yes normal to inspection <Neema Isbell, ELECTRICAL SERVICE TECHNICIAN - Last Filed: 12/07/22 15:16> Course Course Course Narrative: 1800-unfortunately the patient has still not had her labs done. Her additional imaging is pending. She will need medical clearance first. Sign-out to Niral[facility] SKAGGS pending workup <Neema Isbell NP - Last Filed: 12/07/22 15:16> Reevaluation(s) Reevaluation #1: CBC appears to be around patient's baseline. Chemistry at patient's baseline no acute findings requiring intervention. Troponin negative, BNP negative. Patient's VBG showing an elevated by carb a 42, patient's bicarb is typically elevated. For this reason, ABG was ordered which shows a critical high pCO2 however at patient's baseline. P.o. to 74, bicarb 41 discussed these results with my attending Dr Patiño was states this discomfort stated in patient's baseline no need for further intervention. Influenza COVID negative. Chest x-ray with no acute cardiopulmonary findings. Small degree of chronic interstitial thickening. Stable prominence of the cardiomediastinal silhouette Patient is saturating well on nasal cannula which she typically wears. Pending care team evaluation. At this time patient will be placed into observation to allow more time to be evaluated by the behavioral health team. At time observation was started patient common cooperative no acute distress. <GILES Almendarez - Last Filed: 12/05/22 22:06> Time: 22:05 <GILES Almendarez - Last Filed: 12/05/22 22:06> Reevaluation #2: Physician observation continued overnight. She has a sitter at the bedside. No acute overnight events. She has been sleeping all morning. She arouses to voice and yells get out of here. All of her home medications have been restarted. She is pending care team evaluation, will not be seen by the care team until urinalysis is performed. Straight cath has been ordered. Will continue monitor. <GILES Carrizales - Last Filed: 12/06/22 10:32> Time: 10:28 <GILES Carrizales - Last Filed: 12/06/22 10:32> Reevaluation #3: 12/07 1515-patient seen by care team. Plan for discharge back to [facility]. This was discussed by CARE team and [facility]. <Neema Isbell NP - Last Filed: 12/07/22 15:16> Medications Administered Generic Name Dose Route Start Last Admin Trade Name Roberta PRN Reason Stop Dose Admin Atorvastatin Calcium 80 mg 12/06/22 21:00 12/06/22 20:25 Atorvastatin Calcium 80 Mg Tablet PO 80 mg BEDTIME NOEMY Administration Clopidogrel Bisulfate 75 mg 12/06/22 09:00 12/07/22 09:04 Clopidogrel Bisulfate 75 Mg Tablet PO 75 mg DAILY NOEMY Administration Albuterol Sulfate 2.5 mg/ 0 mg 12/06/22 08:00 12/07/22 11:21 Ipratropium [place] 0.5 mg INHALE 2.5 each RQID NOEMY Administration Docusate Sodium 100 mg 12/06/22 09:00 12/07/22 09:04 Docusate Sodium 100 Mg Capsule PO 100 mg DAILY NOEMY Administration Escitalopram Oxalate 10 mg 12/06/22 09:00 12/07/22 09:04 Escitalopram Oxalate 10 Mg Tablet PO 10 mg DAILY NOEMY Administration Levetiracetam 250 mg 12/06/22 21:00 12/06/22 20:25 Levetiracetam 250 Mg Tablet PO 250 mg BEDTIME NOEMY Administration Levetiracetam 500 mg 12/06/22 09:00 12/07/22 09:04 Levetiracetam 500 Mg Tablet PO 500 mg DAILY NOEMY Administration Levothyroxine Sodium 150 mcg 12/06/22 06:00 12/07/22 05:51 Levothyroxine Sodium 150 Mcg Tablet PO 150 mcg DAILY@0600 NOEMY Administration Loratadine 10 mg 12/06/22 09:00 12/07/22 09:04 Loratadine 10 Mg Tablet PO 10 mg DAILY NOEMY Administration Polyethylene Glycol 17 gm 12/06/22 09:00 12/07/22 09:04 Polyethylene Glycol 3350 17 Gm Powd.Pack PO 17 gm DAILY NOEMY Administration Tizanidine HCl 4 mg 12/06/22 13:00 12/06/22 13:44 Tizanidine Hcl 4 Mg Tablet PO 4 mg DAILY@1300 NOEMY Administration Triamcinolone Acetonide 1 appl 12/06/22 09:00 12/07/22 09:04 Triamcinolone Acet 0.1 % Cream 15 Gm Tube TOPICAL Not Given BID NOEMY Protocol Discontinued Medications Generic Name Dose Route Start Last Admin Trade Name Roberta PRN Reason Stop Dose Admin Acetaminophen 650 mg 12/07/22 08:50 12/07/22 09:04 Acetaminophen 325 Mg Tablet PO 12/07/22 08:51 650 mg ONCE ONE Administration Acetaminophen/Butalbital/Caffeine 1 tab 12/07/22 02:39 12/07/22 03:14 Butalb/Acetamin/Caff 50/325/40 Tablet PO 12/07/22 02:40 Not Given ONCE ONE <Neema Isbell ELECTRICAL SERVICE TECHNICIAN - Last Filed: 12/07/22 15:16> Medications Administered Generic Name Dose Route Start Last Admin Trade Name Roberta PRN Reason Stop Dose Admin Atorvastatin Calcium 80 mg 12/06/22 21:00 12/06/22 20:25 Atorvastatin Calcium 80 Mg Tablet PO 80 mg BEDTIME NOEMY Administration Clopidogrel Bisulfate 75 mg 12/06/22 09:00 12/07/22 09:04 Clopidogrel Bisulfate 75 Mg Tablet PO 75 mg DAILY NOEMY Administration Albuterol Sulfate 2.5 mg/ 0 mg 12/06/22 08:00 12/07/22 11:21 Ipratropium [place] 0.5 mg INHALE 2.5 each RQID NOEMY Administration Docusate Sodium 100 mg 12/06/22 09:00 12/07/22 09:04 Docusate Sodium 100 Mg Capsule PO 100 mg DAILY NOEMY Administration Escitalopram Oxalate 10 mg 12/06/22 09:00 12/07/22 09:04 Escitalopram Oxalate 10 Mg Tablet PO 10 mg DAILY NOEMY Administration Levetiracetam 250 mg 12/06/22 21:00 12/06/22 20:25 Levetiracetam 250 Mg Tablet PO 250 mg BEDTIME NOEMY Administration Levetiracetam 500 mg 12/06/22 09:00 12/07/22 09:04 Levetiracetam 500 Mg Tablet PO 500 mg DAILY NOEMY Administration Levothyroxine Sodium 150 mcg 12/06/22 06:00 12/07/22 05:51 Levothyroxine Sodium 150 Mcg Tablet PO 150 mcg DAILY@0600 NOEMY Administration Loratadine 10 mg 12/06/22 09:00 12/07/22 09:04 Loratadine 10 Mg Tablet PO 10 mg DAILY NOEMY Administration Polyethylene Glycol 17 gm 12/06/22 09:00 12/07/22 09:04 Polyethylene Glycol 3350 17 Gm Powd.Pack PO 17 gm DAILY NOEMY Administration Tizanidine HCl 4 mg 12/06/22 13:00 12/06/22 13:44 Tizanidine Hcl 4 Mg Tablet PO 4 mg DAILY@1300 NOEMY Administration Triamcinolone Acetonide 1 appl 12/06/22 09:00 12/07/22 09:04 Triamcinolone Acet 0.1 % Cream 15 Gm Tube TOPICAL Not Given BID NOEMY Protocol Discontinued Medications Generic Name Dose Route Start Last Admin Trade Name Roberta PRN Reason Stop Dose Admin Acetaminophen 650 mg 12/07/22 08:50 12/07/22 09:04 Acetaminophen 325 Mg Tablet PO 12/07/22 08:51 650 mg ONCE ONE Administration Acetaminophen/Butalbital/Caffeine 1 tab 12/07/22 02:39 12/07/22 03:14 Butalb/Acetamin/Caff 50/325/40 Tablet PO 12/07/22 02:40 Not Given ONCE ONE <GILES Almendarez - Last Filed: 12/05/22 22:06> Medications Administered Generic Name Dose Route Start Last Admin Trade Name Freq PRN Reason Stop Dose Admin Atorvastatin Calcium 80 mg 12/06/22 21:00 12/06/22 20:25 Atorvastatin Calcium 80 Mg Tablet PO 80 mg BEDTIME NOEMY Administration Clopidogrel Bisulfate 75 mg 12/06/22 09:00 12/07/22 09:04 Clopidogrel Bisulfate 75 Mg Tablet PO 75 mg DAILY NOEMY Administration Albuterol Sulfate 2.5 mg/ 0 mg 12/06/22 08:00 12/07/22 11:21 Ipratropium [place] 0.5 mg INHALE 2.5 each RQID NOEMY Administration Docusate Sodium 100 mg 12/06/22 09:00 12/07/22 09:04 Docusate Sodium 100 Mg Capsule PO 100 mg DAILY NOEMY Administration Escitalopram Oxalate 10 mg 12/06/22 09:00 12/07/22 09:04 Escitalopram Oxalate 10 Mg Tablet PO 10 mg DAILY NOEMY Administration Levetiracetam 250 mg 12/06/22 21:00 12/06/22 20:25 Levetiracetam 250 Mg Tablet PO 250 mg BEDTIME NOEMY Administration Levetiracetam 500 mg 12/06/22 09:00 12/07/22 09:04 Levetiracetam 500 Mg Tablet PO 500 mg DAILY NOEMY Administration Levothyroxine Sodium 150 mcg 12/06/22 06:00 12/07/22 05:51 Levothyroxine Sodium 150 Mcg Tablet PO 150 mcg DAILY@0600 NOEMY Administration Loratadine 10 mg 12/06/22 09:00 12/07/22 09:04 Loratadine 10 Mg Tablet PO 10 mg DAILY NOEMY Administration Polyethylene Glycol 17 gm 12/06/22 09:00 12/07/22 09:04 Polyethylene Glycol 3350 17 Gm Powd.Pack PO 17 gm DAILY NOEMY Administration Tizanidine HCl 4 mg 12/06/22 13:00 12/06/22 13:44 Tizanidine Hcl 4 Mg Tablet PO 4 mg DAILY@1300 NOEMY Administration Triamcinolone Acetonide 1 appl 12/06/22 09:00 12/07/22 09:04 Triamcinolone Acet 0.1 % Cream 15 Gm Tube TOPICAL Not Given BID [facility] Protocol Discontinued Medications Generic Name Dose Route Start Last Admin Trade Name Rexq PRN Reason Stop Dose Admin Acetaminophen 650 mg 12/07/22 08:50 12/07/22 09:04 Acetaminophen 325 Mg Tablet PO 12/07/22 08:51 650 mg ONCE ONE Administration Acetaminophen/Butalbital/Caffeine 1 tab 12/07/22 02:39 12/07/22 03:14 Butalb/Acetamin/Caff 50/325/40 Tablet PO 12/07/22 02:40 Not Given ONCE ONE <GILES Carrizales - Last Filed: 12/06/22 10:32> Medical Decision Making Medical Decision Making MDM Narrative: This is an 82-year-old female who comes from a custodial facility with concerns for change in behavior, increasing aggression. Reportedly today the patient made threatening gestures and was throwing dishes and wrap to call richey around her neck. Patient on arrival is, cooperative. She does report that she has been having trouble with her breathing and has had chest congestion and cough despite being on prednisone and antibiotic. Will obtain labs, EKG, chest x-ray, UA <Neema Isbell NP - Last Filed: 12/07/22 15:16> Differential Diagnosis Differential Diagnoses: The differential diagnosis associated with the presentation includes <Neema Isbell NP - Last Filed: 12/07/22 15:16> Pneumonia, metabolic encephalopathy, hypercarbia from respiratory failure, anemia, electrolyte abnormality, UTI Also consider underlying mood disorder or mental health Patient also with recent prednisone use the may be secondary to prednisone <Neema Isbell NP - Last Filed: 12/07/22 15:16> Lab Data MDM Lab Attestation statement: I reviewed the patient's lab results. <Neema Isbell NP - Last Filed: 12/07/22 15:16> Result Diagrams: 12/05/22 18:48 12/05/22 18:48 <Neema Isbell NP - Last Filed: 12/07/22 15:16> Labs: Lab Results 12/05/22 12/05/22 12/05/22 Range/Units 18:48 18:48 18:48 WBC 8.5 (4.8-10.8) X10*3/uL RBC 3.85 L (4.20-5.50) X10*6/uL Hgb 10.7 L (12.0-16.0) g/dl Hct 35.2 L (37.0-47.0) % MCV 91.4 (80.0-98.0) fL MCH 27.8 (27.0-33.0) pg MCHC 30.4 L (31.0-35.0) g/dl RDW 18.9 H (11.0-16.0) % Plt Count 167 D (160-400) X10*3/uL MPV 9.7 (9.4-12.3) fL Immature Gran % (Auto) 4.8 H (0.0-0.4) % Neut % (Auto) 69.8 (45-73) % Lymph % (Auto) 14.1 L (20-40) % [place] % (Auto) 8.4 (2-11) % Eos % (Auto) 2.2 (0-4) % Baso % (Auto) 0.7 (0-2) % Lymph # (Auto) 1.2 (1.2-4.9) X10*3/uL [place] # (Auto) 0.7 (0.1-1.2) X10*3/uL Eos # (Auto) 0.2 (0.0-0.4) X10*3/uL Baso # (Auto) 0.1 (0.0-0.2) X10*3/uL Abs Immat Gran (auto) 0.41 H (0.00-0.03) X10*3/uL Absolute Neuts (auto) 5.9 (2.0-8.3) x10*3/uL Absolute Nucleated RBC 0.080 H (0.0-0.012) X10*3/uL Nucleated RBC % (auto) 0.9 H (0.0-0.2) /100WBC PT (10.0-13.1) SEC INR (0.9-1.1) O2 Saturation % ABG pH at Pt Temp (7.35-7.45) ABG pCO2 at Pt Temp (32-45) mmHg ABG pO2 at Pt Temp (83-108) mmHg ABG HCO3 (22-26) mmol/L ABG Base Excess (Actual) mmol/L VBG pH (7.32-7.43) VBG pCO2 mmHg VBG pO2 mmHg VBG HCO3 (22-26) mmol/L VBG O2 Saturation % VBG Base Excess mmol/L Sodium 147 H (135-145) mmol/L Potassium 4.7 (3.3-5.1) mmol/L Chloride 104 (96-108) mmol/L Carbon Dioxide 36 H (22-29) mmol/L Anion Gap 12 (12-20) BUN 22 H (9-16) mg/dL Creatinine 0.83 (0.5-1.4) mg/dL Estim Creat Clear Calc 50.7 Estimated GFR > 60 Random Glucose 107 (60-115) mg/dL Lactic Acid (0.5-2.0) mmol/L Calcium 10.1 (8.4-10.2) mg/dL Magnesium 1.9 (1.6-2.6) mg/dL Total Bilirubin 0.7 (0.0-1.0) mg/dL Direct Bilirubin 0.2 (0.0-0.5) mg/dL AST 13 (5-31) U/L ALT 21 (0-31) U/L Alkaline Phosphatase 110 (39-117) U/L Total Creatine Kinase 29 (26-140) U/L Troponin I High Sens 9.8 (<3.5-17.0) ng/L B-Natriuretic Peptide (<100) pg/mL Total Protein 5.6 L (6.5-8.0) g/dL Albumin 3.4 L (3.5-5.0) g/dL Urine Color Urine Appearance Urine pH (5.0-9.0) Ur Specific [place] (1.005-1.025) Urine Protein (Neg-Trace) mg/dL Urine Glucose (UA) (Negative) mg/dL Urine Ketones (Negative) mg/dL Urine Blood (Negative) Urine Nitrite (Negative) Ur Leukocyte Esterase (Negative) Urine RBC (0-2) /HPF Urine WBC (0-5) /HPF Ur Squamous Epith Cells (0-2) /HPF Urine Bacteria (None Seen) Epithelial Casts Hyaline Casts (0-2) /LPF Urine Opiates Screen (Not Detect) Urine Fentanyl Screen (Not Detect) Ur Barbiturates Screen (Not Detect) Ur Phencyclidine Scrn (Not Detect) Ur Amphetamines Screen (Not Detect) U Benzodiazepines Scrn (Not Detect) Urine Cocaine Screen (Not Detect) U Marijuana (THC) Screen (Not Detect) Influenza Type A (PCR) (Negative) Influenza Type B (PCR) (Negative) RSV RNA Qual (PCR) (Negative) SARS-CoV-2 RNA (RT-PCR) (Negative) 12/05/22 12/05/22 12/05/22 Range/Units 18:48 18:48 18:48 WBC (4.8-10.8) X10*3/uL RBC (4.20-5.50) X10*6/uL Hgb (12.0-16.0) g/dl Hct (37.0-47.0) % MCV (80.0-98.0) fL MCH (27.0-33.0) pg MCHC (31.0-35.0) g/dl RDW (11.0-16.0) % Plt Count (160-400) X10*3/uL MPV (9.4-12.3) fL Immature Gran % (Auto) (0.0-0.4) % Neut % (Auto) (45-73) % Lymph % (Auto) (20-40) % [place] % (Auto) (2-11) % Eos % (Auto) (0-4) % Baso % (Auto) (0-2) % Lymph # (Auto) (1.2-4.9) X10*3/uL [place] # (Auto) (0.1-1.2) X10*3/uL Eos # (Auto) (0.0-0.4) X10*3/uL Baso # (Auto) (0.0-0.2) X10*3/uL Abs Immat Gran (auto) (0.00-0.03) X10*3/uL Absolute Neuts (auto) (2.0-8.3) x10*3/uL Absolute Nucleated RBC (0.0-0.012) X10*3/uL Nucleated RBC % (auto) (0.0-0.2) /100WBC PT 10.7 (10.0-13.1) SEC INR 0.9 (0.9-1.1) O2 Saturation % ABG pH at Pt Temp (7.35-7.45) ABG pCO2 at Pt Temp (32-45) mmHg ABG pO2 at Pt Temp (83-108) mmHg ABG HCO3 (22-26) mmol/L ABG Base Excess (Actual) mmol/L VBG pH (7.32-7.43) VBG pCO2 mmHg VBG pO2 mmHg VBG HCO3 (22-26) mmol/L VBG O2 Saturation % VBG Base Excess mmol/L Sodium (135-145) mmol/L Potassium (3.3-5.1) mmol/L Chloride (96-108) mmol/L Carbon Dioxide (22-29) mmol/L Anion Gap (12-20) BUN (9-16) mg/dL Creatinine (0.5-1.4) mg/dL Estim Creat Clear Calc Estimated GFR Random Glucose (60-115) mg/dL Lactic Acid 1.1 (0.5-2.0) mmol/L Calcium (8.4-10.2) mg/dL Magnesium (1.6-2.6) mg/dL Total Bilirubin (0.0-1.0) mg/dL Direct Bilirubin (0.0-0.5) mg/dL AST (5-31) U/L ALT (0-31) U/L Alkaline Phosphatase (39-117) U/L Total Creatine Kinase (26-140) U/L Troponin I High Sens (<3.5-17.0) ng/L B-Natriuretic Peptide 23 (<100) pg/mL Total Protein (6.5-8.0) g/dL Albumin (3.5-5.0) g/dL Urine Color Urine Appearance Urine pH (5.0-9.0) Ur Specific [place] (1.005-1.025) Urine Protein (Neg-Trace) mg/dL Urine Glucose (UA) (Negative) mg/dL Urine Ketones (Negative) mg/dL Urine Blood (Negative) Urine Nitrite (Negative) Ur Leukocyte Esterase (Negative) Urine RBC (0-2) /HPF Urine WBC (0-5) /HPF Ur Squamous Epith Cells (0-2) /HPF Urine Bacteria (None Seen) Epithelial Casts Hyaline Casts (0-2) /LPF Urine Opiates Screen (Not Detect) Urine Fentanyl Screen (Not Detect) Ur Barbiturates Screen (Not Detect) Ur Phencyclidine Scrn (Not Detect) Ur Amphetamines Screen (Not Detect) U Benzodiazepines Scrn (Not Detect) Urine Cocaine Screen (Not Detect) U Marijuana (THC) Screen (Not Detect) Influenza Type A (PCR) (Negative) Influenza Type B (PCR) (Negative) RSV RNA Qual (PCR) (Negative) SARS-CoV-2 RNA (RT-PCR) (Negative) 12/05/22 12/05/22 12/05/22 Range/Units 18:48 19:00 21:42 WBC (4.8-10.8) X10*3/uL RBC (4.20-5.50) X10*6/uL Hgb (12.0-16.0) g/dl Hct (37.0-47.0) % MCV (80.0-98.0) fL MCH (27.0-33.0) pg MCHC (31.0-35.0) g/dl RDW (11.0-16.0) % Plt Count (160-400) X10*3/uL MPV (9.4-12.3) fL Immature Gran % (Auto) (0.0-0.4) % Neut % (Auto) (45-73) % Lymph % (Auto) (20-40) % [place] % (Auto) (2-11) % Eos % (Auto) (0-4) % Baso % (Auto) (0-2) % Lymph # (Auto) (1.2-4.9) X10*3/uL [place] # (Auto) (0.1-1.2) X10*3/uL Eos # (Auto) (0.0-0.4) X10*3/uL Baso # (Auto) (0.0-0.2) X10*3/uL Abs Immat Gran (auto) (0.00-0.03) X10*3/uL Absolute Neuts (auto) (2.0-8.3) x10*3/uL Absolute Nucleated RBC (0.0-0.012) X10*3/uL Nucleated RBC % (auto) (0.0-0.2) /100WBC PT (10.0-13.1) SEC INR (0.9-1.1) O2 Saturation 96.0 % ABG pH at Pt Temp 7.42 (7.35-7.45) ABG pCO2 at Pt Temp 64 H* (32-45) mmHg ABG pO2 at Pt Temp 74 L (83-108) mmHg ABG HCO3 41 H (22-26) mmol/L ABG Base Excess (Actual) 14.6 mmol/L VBG pH 7.37 (7.32-7.43) VBG pCO2 73 mmHg VBG pO2 42 mmHg VBG HCO3 42 H (22-26) mmol/L VBG O2 Saturation 70.0 % VBG Base Excess 14.3 mmol/L Sodium (135-145) mmol/L Potassium (3.3-5.1) mmol/L Chloride (96-108) mmol/L Carbon Dioxide (22-29) mmol/L Anion Gap (12-20) BUN (9-16) mg/dL Creatinine (0.5-1.4) mg/dL Estim Creat Clear Calc Estimated GFR Random Glucose (60-115) mg/dL Lactic Acid (0.5-2.0) mmol/L Calcium (8.4-10.2) mg/dL Magnesium (1.6-2.6) mg/dL Total Bilirubin (0.0-1.0) mg/dL Direct Bilirubin (0.0-0.5) mg/dL AST (5-31) U/L ALT (0-31) U/L Alkaline Phosphatase (39-117) U/L Total Creatine Kinase (26-140) U/L Troponin I High Sens (<3.5-17.0) ng/L B-Natriuretic Peptide (<100) pg/mL Total Protein (6.5-8.0) g/dL Albumin (3.5-5.0) g/dL Urine Color Urine Appearance Urine pH (5.0-9.0) Ur Specific [place] (1.005-1.025) Urine Protein (Neg-Trace) mg/dL Urine Glucose (UA) (Negative) mg/dL Urine Ketones (Negative) mg/dL Urine Blood (Negative) Urine Nitrite (Negative) Ur Leukocyte Esterase (Negative) Urine RBC (0-2) /HPF Urine WBC (0-5) /HPF Ur Squamous Epith Cells (0-2) /HPF Urine Bacteria (None Seen) Epithelial Casts Hyaline Casts (0-2) /LPF Urine Opiates Screen (Not Detect) Urine Fentanyl Screen (Not Detect) Ur Barbiturates Screen (Not Detect) Ur Phencyclidine Scrn (Not Detect) Ur Amphetamines Screen (Not Detect) U Benzodiazepines Scrn (Not Detect) Urine Cocaine Screen (Not Detect) U Marijuana (THC) Screen (Not Detect) Influenza Type A (PCR) NEGATIVE (Negative) Influenza Type B (PCR) NEGATIVE (Negative) RSV RNA Qual (PCR) NEGATIVE (Negative) SARS-CoV-2 RNA (RT-PCR) NEGATIVE (Negative) 12/06/22 12/06/22 Range/Units 11:02 11:02 WBC (4.8-10.8) X10*3/uL RBC (4.20-5.50) X10*6/uL Hgb (12.0-16.0) g/dl Hct (37.0-47.0) % MCV (80.0-98.0) fL MCH (27.0-33.0) pg MCHC (31.0-35.0) g/dl RDW (11.0-16.0) % Plt Count (160-400) X10*3/uL MPV (9.4-12.3) fL Immature Gran % (Auto) (0.0-0.4) % Neut % (Auto) (45-73) % Lymph % (Auto) (20-40) % [place] % (Auto) (2-11) % Eos % (Auto) (0-4) % Baso % (Auto) (0-2) % Lymph # (Auto) (1.2-4.9) X10*3/uL [place] # (Auto) (0.1-1.2) X10*3/uL Eos # (Auto) (0.0-0.4) X10*3/uL Baso # (Auto) (0.0-0.2) X10*3/uL Abs Immat Gran (auto) (0.00-0.03) X10*3/uL Absolute Neuts (auto) (2.0-8.3) x10*3/uL Absolute Nucleated RBC (0.0-0.012) X10*3/uL Nucleated RBC % (auto) (0.0-0.2) /100WBC PT (10.0-13.1) SEC INR (0.9-1.1) O2 Saturation % ABG pH at Pt Temp (7.35-7.45) ABG pCO2 at Pt Temp (32-45) mmHg ABG pO2 at Pt Temp (83-108) mmHg ABG HCO3 (22-26) mmol/L ABG Base Excess (Actual) mmol/L VBG pH (7.32-7.43) VBG pCO2 mmHg VBG pO2 mmHg VBG HCO3 (22-26) mmol/L VBG O2 Saturation % VBG Base Excess mmol/L Sodium (135-145) mmol/L Potassium (3.3-5.1) mmol/L Chloride (96-108) mmol/L Carbon Dioxide (22-29) mmol/L Anion Gap (12-20) BUN (9-16) mg/dL Creatinine (0.5-1.4) mg/dL Estim Creat Clear Calc Estimated GFR Random Glucose (60-115) mg/dL Lactic Acid (0.5-2.0) mmol/L Calcium (8.4-10.2) mg/dL Magnesium (1.6-2.6) mg/dL Total Bilirubin (0.0-1.0) mg/dL Direct Bilirubin (0.0-0.5) mg/dL AST (5-31) U/L ALT (0-31) U/L Alkaline Phosphatase (39-117) U/L Total Creatine Kinase (26-140) U/L Troponin I High Sens (<3.5-17.0) ng/L B-Natriuretic Peptide (<100) pg/mL Total Protein (6.5-8.0) g/dL Albumin (3.5-5.0) g/dL Urine Color Yellow Urine Appearance Cloudy Urine pH 5.0 (5.0-9.0) Ur Specific [place] 1.020 (1.005-1.025) Urine Protein 30 (1+) H (Neg-Trace) mg/dL Urine Glucose (UA) Negative (Negative) mg/dL Urine Ketones Negative (Negative) mg/dL Urine Blood Negative (Negative) Urine Nitrite Negative (Negative) Ur Leukocyte Esterase Negative (Negative) Urine RBC 0-2 (0-2) /HPF Urine WBC 0-5 (0-5) /HPF Ur Squamous Epith Cells 0-2 (0-2) /HPF Urine Bacteria None Seen (None Seen) Epithelial Casts Present Hyaline Casts 6-10 (0-2) /LPF Urine Opiates Screen Not Detected (Not Detect) Urine Fentanyl Screen Not Detected (Not Detect) Ur Barbiturates Screen Not Detected (Not Detect) Ur Phencyclidine Scrn POSITIVE H (Not Detect) Ur Amphetamines Screen Not Detected (Not Detect) U Benzodiazepines Scrn Not Detected (Not Detect) Urine Cocaine Screen Not Detected (Not Detect) U Marijuana (THC) Screen Not Detected (Not Detect) Influenza Type A (PCR) (Negative) Influenza Type B (PCR) (Negative) RSV RNA Qual (PCR) (Negative) SARS-CoV-2 RNA (RT-PCR) (Negative) <Neema Isbell, ELECT[employer] SERVICE TECHNICIAN - Last Filed: 12/07/22 15:16> Lab Results 12/05/22 12/05/22 12/05/22 Range/Units 18:48 18:48 18:48 WBC 8.5 (4.8-10.8) X10*3/uL RBC 3.85 L (4.20-5.50) X10*6/uL Hgb 10.7 L (12.0-16.0) g/dl Hct 35.2 L (37.0-47.0) % MCV 91.4 (80.0-98.0) fL MCH 27.8 (27.0-33.0) pg MCHC 30.4 L (31.0-35.0) g/dl RDW 18.9 H (11.0-16.0) % Plt Count 167 D (160-400) X10*3/uL MPV 9.7 (9.4-12.3) fL Immature Gran % (Auto) 4.8 H (0.0-0.4) % Neut % (Auto) 69.8 (45-73) % Lymph % (Auto) 14.1 L (20-40) % [place] % (Auto) 8.4 (2-11) % Eos % (Auto) 2.2 (0-4) % Baso % (Auto) 0.7 (0-2) % Lymph # (Auto) 1.2 (1.2-4.9) X10*3/uL [place] # (Auto) 0.7 (0.1-1.2) X10*3/uL Eos # (Auto) 0.2 (0.0-0.4) X10*3/uL Baso # (Auto) 0.1 (0.0-0.2) X10*3/uL Abs Immat Gran (auto) 0.41 H (0.00-0.03) X10*3/uL Absolute Neuts (auto) 5.9 (2.0-8.3) x10*3/uL Absolute Nucleated RBC 0.080 H (0.0-0.012) X10*3/uL Nucleated RBC % (auto) 0.9 H (0.0-0.2) /100WBC PT (10.0-13.1) SEC INR (0.9-1.1) O2 Saturation % ABG pH at Pt Temp (7.35-7.45) ABG pCO2 at Pt Temp (32-45) mmHg ABG pO2 at Pt Temp (83-108) mmHg ABG HCO3 (22-26) mmol/L ABG Base Excess (Actual) mmol/L VBG pH (7.32-7.43) VBG pCO2 mmHg VBG pO2 mmHg VBG HCO3 (22-26) mmol/L VBG O2 Saturation % VBG Base Excess mmol/L Sodium 147 H (135-145) mmol/L Potassium 4.7 (3.3-5.1) mmol/L Chloride 104 (96-108) mmol/L Carbon Dioxide 36 H (22-29) mmol/L Anion Gap 12 (12-20) BUN 22 H (9-16) mg/dL Creatinine 0.83 (0.5-1.4) mg/dL Estim Creat Clear Calc 50.7 Estimated GFR > 60 Random Glucose 107 (60-115) mg/dL Lactic Acid (0.5-2.0) mmol/L Calcium 10.1 (8.4-10.2) mg/dL Magnesium 1.9 (1.6-2.6) mg/dL Total Bilirubin 0.7 (0.0-1.0) mg/dL Direct Bilirubin 0.2 (0.0-0.5) mg/dL AST 13 (5-31) U/L ALT 21 (0-31) U/L Alkaline Phosphatase 110 (39-117) U/L Total Creatine Kinase 29 (26-140) U/L Troponin I High Sens 9.8 (<3.5-17.0) ng/L B-Natriuretic Peptide (<100) pg/mL Total Protein 5.6 L (6.5-8.0) g/dL Albumin 3.4 L (3.5-5.0) g/dL Urine Color Urine Appearance Urine pH (5.0-9.0) Ur Specific [place] (1.005-1.025) Urine Protein (Neg-Trace) mg/dL Urine Glucose (UA) (Negative) mg/dL Urine Ketones (Negative) mg/dL Urine Blood (Negative) Urine Nitrite (Negative) Ur Leukocyte Esterase (Negative) Urine RBC (0-2) /HPF Urine WBC (0-5) /HPF Ur Squamous Epith Cells (0-2) /HPF Urine Bacteria (None Seen) Epithelial Casts Hyaline Casts (0-2) /LPF Urine Opiates Screen (Not Detect) Urine Fentanyl Screen (Not Detect) Ur Barbiturates Screen (Not Detect) Ur Phencyclidine Scrn (Not Detect) Ur Amphetamines Screen (Not Detect) U Benzodiazepines Scrn (Not Detect) Urine Cocaine Screen (Not Detect) U Marijuana (THC) Screen (Not Detect) Influenza Type A (PCR) (Negative) Influenza Type B (PCR) (Negative) RSV RNA Qual (PCR) (Negative) SARS-CoV-2 RNA (RT-PCR) (Negative) 12/05/22 12/05/22 12/05/22 Range/Units 18:48 18:48 18:48 WBC (4.8-10.8) X10*3/uL RBC (4.20-5.50) X10*6/uL Hgb (12.0-16.0) g/dl Hct (37.0-47.0) % MCV (80.0-98.0) fL MCH (27.0-33.0) pg MCHC (31.0-35.0) g/dl RDW (11.0-16.0) % Plt Count (160-400) X10*3/uL MPV (9.4-12.3) fL Immature Gran % (Auto) (0.0-0.4) % Neut % (Auto) (45-73) % Lymph % (Auto) (20-40) % [place] % (Auto) (2-11) % Eos % (Auto) (0-4) % Baso % (Auto) (0-2) % Lymph # (Auto) (1.2-4.9) X10*3/uL [place] # (Auto) (0.1-1.2) X10*3/uL Eos # (Auto) (0.0-0.4) X10*3/uL Baso # (Auto) (0.0-0.2) X10*3/uL Abs Immat Gran (auto) (0.00-0.03) X10*3/uL Absolute Neuts (auto) (2.0-8.3) x10*3/uL Absolute Nucleated RBC (0.0-0.012) X10*3/uL Nucleated RBC % (auto) (0.0-0.2) /100WBC PT 10.7 (10.0-13.1) SEC INR 0.9 (0.9-1.1) O2 Saturation % ABG pH at Pt Temp (7.35-7.45) ABG pCO2 at Pt Temp (32-45) mmHg ABG pO2 at Pt Temp (83-108) mmHg ABG HCO3 (22-26) mmol/L ABG Base Excess (Actual) mmol/L VBG pH (7.32-7.43) VBG pCO2 mmHg VBG pO2 mmHg VBG HCO3 (22-26) mmol/L VBG O2 Saturation % VBG Base Excess mmol/L Sodium (135-145) mmol/L Potassium (3.3-5.1) mmol/L Chloride (96-108) mmol/L Carbon Dioxide (22-29) mmol/L Anion Gap (12-20) BUN (9-16) mg/dL Creatinine (0.5-1.4) mg/dL Estim Creat Clear Calc Estimated GFR Random Glucose (60-115) mg/dL Lactic Acid 1.1 (0.5-2.0) mmol/L Calcium (8.4-10.2) mg/dL Magnesium (1.6-2.6) mg/dL Total Bilirubin (0.0-1.0) mg/dL Direct Bilirubin (0.0-0.5) mg/dL AST (5-31) U/L ALT (0-31) U/L Alkaline Phosphatase (39-117) U/L Total Creatine Kinase (26-140) U/L Troponin I High Sens (<3.5-17.0) ng/L B-Natriuretic Peptide 23 (<100) pg/mL Total Protein (6.5-8.0) g/dL Albumin (3.5-5.0) g/dL Urine Color Urine Appearance Urine pH (5.0-9.0) Ur Specific [place] (1.005-1.025) Urine Protein (Neg-Trace) mg/dL Urine Glucose (UA) (Negative) mg/dL Urine Ketones (Negative) mg/dL Urine Blood (Negative) Urine Nitrite (Negative) Ur Leukocyte Esterase (Negative) Urine RBC (0-2) /HPF Urine WBC (0-5) /HPF Ur Squamous Epith Cells (0-2) /HPF Urine Bacteria (None Seen) Epithelial Casts Hyaline Casts (0-2) /LPF Urine Opiates Screen (Not Detect) Urine Fentanyl Screen (Not Detect) Ur Barbiturates Screen (Not Detect) Ur Phencyclidine Scrn (Not Detect) Ur Amphetamines Screen (Not Detect) U Benzodiazepines Scrn (Not Detect) Urine Cocaine Screen (Not Detect) U Marijuana (THC) Screen (Not Detect) Influenza Type A (PCR) (Negative) Influenza Type B (PCR) (Negative) RSV RNA Qual (PCR) (Negative) SARS-CoV-2 RNA (RT-PCR) (Negative) 12/05/22 12/05/22 12/05/22 Range/Units 18:48 19:00 21:42 WBC (4.8-10.8) X10*3/uL RBC (4.20-5.50) X10*6/uL Hgb (12.0-16.0) g/dl Hct (37.0-47.0) % MCV (80.0-98.0) fL MCH (27.0-33.0) pg MCHC (31.0-35.0) g/dl RDW (11.0-16.0) % Plt Count (160-400) X10*3/uL MPV (9.4-12.3) fL Immature Gran % (Auto) (0.0-0.4) % Neut % (Auto) (45-73) % Lymph % (Auto) (20-40) % [place] % (Auto) (2-11) % Eos % (Auto) (0-4) % Baso % (Auto) (0-2) % Lymph # (Auto) (1.2-4.9) X10*3/uL [place] # (Auto) (0.1-1.2) X10*3/uL Eos # (Auto) (0.0-0.4) X10*3/uL Baso # (Auto) (0.0-0.2) X10*3/uL Abs Immat Gran (auto) (0.00-0.03) X10*3/uL Absolute Neuts (auto) (2.0-8.3) x10*3/uL Absolute Nucleated RBC (0.0-0.012) X10*3/uL Nucleated RBC % (auto) (0.0-0.2) /100WBC PT (10.0-13.1) SEC INR (0.9-1.1) O2 Saturation 96.0 % ABG pH at Pt Temp 7.42 (7.35-7.45) ABG pCO2 at Pt Temp 64 H* (32-45) mmHg ABG pO2 at Pt Temp 74 L (83-108) mmHg ABG HCO3 41 H (22-26) mmol/L ABG Base Excess (Actual) 14.6 mmol/L VBG pH 7.37 (7.32-7.43) VBG pCO2 73 mmHg VBG pO2 42 mmHg VBG HCO3 42 H (22-26) mmol/L VBG O2 Saturation 70.0 % VBG Base Excess 14.3 mmol/L Sodium (135-145) mmol/L Potassium (3.3-5.1) mmol/L Chloride (96-108) mmol/L Carbon Dioxide (22-29) mmol/L Anion Gap (12-20) BUN (9-16) mg/dL Creatinine (0.5-1.4) mg/dL Estim Creat Clear Calc Estimated GFR Random Glucose (60-115) mg/dL Lactic Acid (0.5-2.0) mmol/L Calcium (8.4-10.2) mg/dL Magnesium (1.6-2.6) mg/dL Total Bilirubin (0.0-1.0) mg/dL Direct Bilirubin (0.0-0.5) mg/dL AST (5-31) U/L ALT (0-31) U/L Alkaline Phosphatase (39-117) U/L Total Creatine Kinase (26-140) U/L Troponin I High Sens (<3.5-17.0) ng/L B-Natriuretic Peptide (<100) pg/mL Total Protein (6.5-8.0) g/dL Albumin (3.5-5.0) g/dL Urine Color Urine Appearance Urine pH (5.0-9.0) Ur Specific [place] (1.005-1.025) Urine Protein (Neg-Trace) mg/dL Urine Glucose (UA) (Negative) mg/dL Urine Ketones (Negative) mg/dL Urine Blood (Negative) Urine Nitrite (Negative) Ur Leukocyte Esterase (Negative) Urine RBC (0-2) /HPF Urine WBC (0-5) /HPF Ur Squamous Epith Cells (0-2) /HPF Urine Bacteria (None Seen) Epithelial Casts Hyaline Casts (0-2) /LPF Urine Opiates Screen (Not Detect) Urine Fentanyl Screen (Not Detect) Ur Barbiturates Screen (Not Detect) Ur Phencyclidine Scrn (Not Detect) Ur Amphetamines Screen (Not Detect) U Benzodiazepines Scrn (Not Detect) Urine Cocaine Screen (Not Detect) U Marijuana (THC) Screen (Not Detect) Influenza Type A (PCR) NEGATIVE (Negative) Influenza Type B (PCR) NEGATIVE (Negative) RSV RNA Qual (PCR) NEGATIVE (Negative) SARS-CoV-2 RNA (RT-PCR) NEGATIVE (Negative) 12/06/22 12/06/22 Range/Units 11:02 11:02 WBC (4.8-10.8) X10*3/uL RBC (4.20-5.50) X10*6/uL Hgb (12.0-16.0) g/dl Hct (37.0-47.0) % MCV (80.0-98.0) fL MCH (27.0-33.0) pg MCHC (31.0-35.0) g/dl RDW (11.0-16.0) % Plt Count (160-400) X10*3/uL MPV (9.4-12.3) fL Immature Gran % (Auto) (0.0-0.4) % Neut % (Auto) (45-73) % Lymph % (Auto) (20-40) % [place] % (Auto) (2-11) % Eos % (Auto) (0-4) % Baso % (Auto) (0-2) % Lymph # (Auto) (1.2-4.9) X10*3/uL [place] # (Auto) (0.1-1.2) X10*3/uL Eos # (Auto) (0.0-0.4) X10*3/uL Baso # (Auto) (0.0-0.2) X10*3/uL Abs Immat Gran (auto) (0.00-0.03) X10*3/uL Absolute Neuts (auto) (2.0-8.3) x10*3/uL Absolute Nucleated RBC (0.0-0.012) X10*3/uL Nucleated RBC % (auto) (0.0-0.2) /100WBC PT (10.0-13.1) SEC INR (0.9-1.1) O2 Saturation % ABG pH at Pt Temp (7.35-7.45) ABG pCO2 at Pt Temp (32-45) mmHg ABG pO2 at Pt Temp (83-108) mmHg ABG HCO3 (22-26) mmol/L ABG Base Excess (Actual) mmol/L VBG pH (7.32-7.43) VBG pCO2 mmHg VBG pO2 mmHg VBG HCO3 (22-26) mmol/L VBG O2 Saturation % VBG Base Excess mmol/L Sodium (135-145) mmol/L Potassium (3.3-5.1) mmol/L Chloride (96-108) mmol/L Carbon Dioxide (22-29) mmol/L Anion Gap (12-20) BUN (9-16) mg/dL Creatinine (0.5-1.4) mg/dL Estim Creat Clear Calc Estimated GFR Random Glucose (60-115) mg/dL Lactic Acid (0.5-2.0) mmol/L Calcium (8.4-10.2) mg/dL Magnesium (1.6-2.6) mg/dL Total Bilirubin (0.0-1.0) mg/dL Direct Bilirubin (0.0-0.5) mg/dL AST (5-31) U/L ALT (0-31) U/L Alkaline Phosphatase (39-117) U/L Total Creatine Kinase (26-140) U/L Troponin I High Sens (<3.5-17.0) ng/L B-Natriuretic Peptide (<100) pg/mL Total Protein (6.5-8.0) g/dL Albumin (3.5-5.0) g/dL Urine Color Yellow Urine Appearance Cloudy Urine pH 5.0 (5.0-9.0) Ur Specific [place] 1.020 (1.005-1.025) Urine Protein 30 (1+) H (Neg-Trace) mg/dL Urine Glucose (UA) Negative (Negative) mg/dL Urine Ketones Negative (Negative) mg/dL Urine Blood Negative (Negative) Urine Nitrite Negative (Negative) Ur Leukocyte Esterase Negative (Negative) Urine RBC 0-2 (0-2) /HPF Urine WBC 0-5 (0-5) /HPF Ur Squamous Epith Cells 0-2 (0-2) /HPF Urine Bacteria None Seen (None Seen) Epithelial Casts Present Hyaline Casts 6-10 (0-2) /LPF Urine Opiates Screen Not Detected (Not Detect) Urine Fentanyl Screen Not Detected (Not Detect) Ur Barbiturates Screen Not Detected (Not Detect) Ur Phencyclidine Scrn POSITIVE H (Not Detect) Ur Amphetamines Screen Not Detected (Not Detect) U Benzodiazepines Scrn Not Detected (Not Detect) Urine Cocaine Screen Not Detected (Not Detect) U Marijuana (THC) Screen Not Detected (Not Detect) Influenza Type A (PCR) (Negative) Influenza Type B (PCR) (Negative) RSV RNA Qual (PCR) (Negative) SARS-CoV-2 RNA (RT-PCR) (Negative) <GILES Almendarez - Last Filed: 12/05/22 22:06> Lab Results 12/05/22 12/05/22 12/05/22 Range/Units 18:48 18:48 18:48 WBC 8.5 (4.8-10.8) X10*3/uL RBC 3.85 L (4.20-5.50) X10*6/uL Hgb 10.7 L (12.0-16.0) g/dl Hct 35.2 L (37.0-47.0) % MCV 91.4 (80.0-98.0) fL MCH 27.8 (27.0-33.0) pg MCHC 30.4 L (31.0-35.0) g/dl RDW 18.9 H (11.0-16.0) % Plt Count 167 D (160-400) X10*3/uL MPV 9.7 (9.4-12.3) fL Immature Gran % (Auto) 4.8 H (0.0-0.4) % Neut % (Auto) 69.8 (45-73) % Lymph % (Auto) 14.1 L (20-40) % [place] % (Auto) 8.4 (2-11) % Eos % (Auto) 2.2 (0-4) % Baso % (Auto) 0.7 (0-2) % Lymph # (Auto) 1.2 (1.2-4.9) X10*3/uL [place] # (Auto) 0.7 (0.1-1.2) X10*3/uL Eos # (Auto) 0.2 (0.0-0.4) X10*3/uL Baso # (Auto) 0.1 (0.0-0.2) X10*3/uL Abs Immat Gran (auto) 0.41 H (0.00-0.03) X10*3/uL Absolute Neuts (auto) 5.9 (2.0-8.3) x10*3/uL Absolute Nucleated RBC 0.080 H (0.0-0.012) X10*3/uL Nucleated RBC % (auto) 0.9 H (0.0-0.2) /100WBC PT (10.0-13.1) SEC INR (0.9-1.1) O2 Saturation % ABG pH at Pt Temp (7.35-7.45) ABG pCO2 at Pt Temp (32-45) mmHg ABG pO2 at Pt Temp (83-108) mmHg ABG HCO3 (22-26) mmol/L ABG Base Excess (Actual) mmol/L VBG pH (7.32-7.43) VBG pCO2 mmHg VBG pO2 mmHg VBG HCO3 (22-26) mmol/L VBG O2 Saturation % VBG Base Excess mmol/L Sodium 147 H (135-145) mmol/L Potassium 4.7 (3.3-5.1) mmol/L Chloride 104 (96-108) mmol/L Carbon Dioxide 36 H (22-29) mmol/L Anion Gap 12 (12-20) BUN 22 H (9-16) mg/dL Creatinine 0.83 (0.5-1.4) mg/dL Estim Creat Clear Calc 50.7 Estimated GFR > 60 Random Glucose 107 (60-115) mg/dL Lactic Acid (0.5-2.0) mmol/L Calcium 10.1 (8.4-10.2) mg/dL Magnesium 1.9 (1.6-2.6) mg/dL Total Bilirubin 0.7 (0.0-1.0) mg/dL Direct Bilirubin 0.2 (0.0-0.5) mg/dL AST 13 (5-31) U/L ALT 21 (0-31) U/L Alkaline Phosphatase 110 (39-117) U/L Total Creatine Kinase 29 (26-140) U/L Troponin I High Sens 9.8 (<3.5-17.0) ng/L B-Natriuretic Peptide (<100) pg/mL Total Protein 5.6 L (6.5-8.0) g/dL Albumin 3.4 L (3.5-5.0) g/dL Urine Color Urine Appearance Urine pH (5.0-9.0) Ur Specific [place] (1.005-1.025) Urine Protein (Neg-Trace) mg/dL Urine Glucose (UA) (Negative) mg/dL Urine Ketones (Negative) mg/dL Urine Blood (Negative) Urine Nitrite (Negative) Ur Leukocyte Esterase (Negative) Urine RBC (0-2) /HPF Urine WBC (0-5) /HPF Ur Squamous Epith Cells (0-2) /HPF Urine Bacteria (None Seen) Epithelial Casts Hyaline Casts (0-2) /LPF Urine Opiates Screen (Not Detect) Urine Fentanyl Screen (Not Detect) Ur Barbiturates Screen (Not Detect) Ur Phencyclidine Scrn (Not Detect) Ur Amphetamines Screen (Not Detect) U Benzodiazepines Scrn (Not Detect) Urine Cocaine Screen (Not Detect) U Marijuana (THC) Screen (Not Detect) Influenza Type A (PCR) (Negative) Influenza Type B (PCR) (Negative) RSV RNA Qual (PCR) (Negative) SARS-CoV-2 RNA (RT-PCR) (Negative) 12/05/22 12/05/22 12/05/22 Range/Units 18:48 18:48 18:48 WBC (4.8-10.8) X10*3/uL RBC (4.20-5.50) X10*6/uL Hgb (12.0-16.0) g/dl Hct (37.0-47.0) % MCV (80.0-98.0) fL MCH (27.0-33.0) pg MCHC (31.0-35.0) g/dl RDW (11.0-16.0) % Plt Count (160-400) X10*3/uL MPV (9.4-12.3) fL Immature Gran % (Auto) (0.0-0.4) % Neut % (Auto) (45-73) % Lymph % (Auto) (20-40) % [place] % (Auto) (2-11) % Eos % (Auto) (0-4) % Baso % (Auto) (0-2) % Lymph # (Auto) (1.2-4.9) X10*3/uL [place] # (Auto) (0.1-1.2) X10*3/uL Eos # (Auto) (0.0-0.4) X10*3/uL Baso # (Auto) (0.0-0.2) X10*3/uL Abs Immat Gran (auto) (0.00-0.03) X10*3/uL Absolute Neuts (auto) (2.0-8.3) x10*3/uL Absolute Nucleated RBC (0.0-0.012) X10*3/uL Nucleated RBC % (auto) (0.0-0.2) /100WBC PT 10.7 (10.0-13.1) SEC INR 0.9 (0.9-1.1) O2 Saturation % ABG pH at Pt Temp (7.35-7.45) ABG pCO2 at Pt Temp (32-45) mmHg ABG pO2 at Pt Temp (83-108) mmHg ABG HCO3 (22-26) mmol/L ABG Base Excess (Actual) mmol/L VBG pH (7.32-7.43) VBG pCO2 mmHg VBG pO2 mmHg VBG HCO3 (22-26) mmol/L VBG O2 Saturation % VBG Base Excess mmol/L Sodium (135-145) mmol/L Potassium (3.3-5.1) mmol/L Chloride (96-108) mmol/L Carbon Dioxide (22-29) mmol/L Anion Gap (12-20) BUN (9-16) mg/dL Creatinine (0.5-1.4) mg/dL Estim Creat Clear Calc Estimated GFR Random Glucose (60-115) mg/dL Lactic Acid 1.1 (0.5-2.0) mmol/L Calcium (8.4-10.2) mg/dL Magnesium (1.6-2.6) mg/dL Total Bilirubin (0.0-1.0) mg/dL Direct Bilirubin (0.0-0.5) mg/dL AST (5-31) U/L ALT (0-31) U/L Alkaline Phosphatase (39-117) U/L Total Creatine Kinase (26-140) U/L Troponin I High Sens (<3.5-17.0) ng/L B-Natriuretic Peptide 23 (<100) pg/mL Total Protein (6.5-8.0) g/dL Albumin (3.5-5.0) g/dL Urine Color Urine Appearance Urine pH (5.0-9.0) Ur Specific [place] (1.005-1.025) Urine Protein (Neg-Trace) mg/dL Urine Glucose (UA) (Negative) mg/dL Urine Ketones (Negative) mg/dL Urine Blood (Negative) Urine Nitrite (Negative) Ur Leukocyte Esterase (Negative) Urine RBC (0-2) /HPF Urine WBC (0-5) /HPF Ur Squamous Epith Cells (0-2) /HPF Urine Bacteria (None Seen) Epithelial Casts Hyaline Casts (0-2) /LPF Urine Opiates Screen (Not Detect) Urine Fentanyl Screen (Not Detect) Ur Barbiturates Screen (Not Detect) Ur Phencyclidine Scrn (Not Detect) Ur Amphetamines Screen (Not Detect) U Benzodiazepines Scrn (Not Detect) Urine Cocaine Screen (Not Detect) U Marijuana (THC) Screen (Not Detect) Influenza Type A (PCR) (Negative) Influenza Type B (PCR) (Negative) RSV RNA Qual (PCR) (Negative) SARS-CoV-2 RNA (RT-PCR) (Negative) 12/05/22 12/05/22 12/05/22 Range/Units 18:48 19:00 21:42 WBC (4.8-10.8) X10*3/uL RBC (4.20-5.50) X10*6/uL Hgb (12.0-16.0) g/dl Hct (37.0-47.0) % MCV (80.0-98.0) fL MCH (27.0-33.0) pg MCHC (31.0-35.0) g/dl RDW (11.0-16.0) % Plt Count (160-400) X10*3/uL MPV (9.4-12.3) fL Immature Gran % (Auto) (0.0-0.4) % Neut % (Auto) (45-73) % Lymph % (Auto) (20-40) % [place] % (Auto) (2-11) % Eos % (Auto) (0-4) % Baso % (Auto) (0-2) % Lymph # (Auto) (1.2-4.9) X10*3/uL [place] # (Auto) (0.1-1.2) X10*3/uL Eos # (Auto) (0.0-0.4) X10*3/uL Baso # (Auto) (0.0-0.2) X10*3/uL Abs Immat Gran (auto) (0.00-0.03) X10*3/uL Absolute Neuts (auto) (2.0-8.3) x10*3/uL Absolute Nucleated RBC (0.0-0.012) X10*3/uL Nucleated RBC % (auto) (0.0-0.2) /100WBC PT (10.0-13.1) SEC INR (0.9-1.1) O2 Saturation 96.0 % ABG pH at Pt Temp 7.42 (7.35-7.45) ABG pCO2 at Pt Temp 64 H* (32-45) mmHg ABG pO2 at Pt Temp 74 L (83-108) mmHg ABG HCO3 41 H (22-26) mmol/L ABG Base Excess (Actual) 14.6 mmol/L VBG pH 7.37 (7.32-7.43) VBG pCO2 73 mmHg VBG pO2 42 mmHg VBG HCO3 42 H (22-26) mmol/L VBG O2 Saturation 70.0 % VBG Base Excess 14.3 mmol/L Sodium (135-145) mmol/L Potassium (3.3-5.1) mmol/L Chloride (96-108) mmol/L Carbon Dioxide (22-29) mmol/L Anion Gap (12-20) BUN (9-16) mg/dL Creatinine (0.5-1.4) mg/dL Estim Creat Clear Calc Estimated GFR Random Glucose (60-115) mg/dL Lactic Acid (0.5-2.0) mmol/L Calcium (8.4-10.2) mg/dL Magnesium (1.6-2.6) mg/dL Total Bilirubin (0.0-1.0) mg/dL Direct Bilirubin (0.0-0.5) mg/dL AST (5-31) U/L ALT (0-31) U/L Alkaline Phosphatase (39-117) U/L Total Creatine Kinase (26-140) U/L Troponin I High Sens (<3.5-17.0) ng/L B-Natriuretic Peptide (<100) pg/mL Total Protein (6.5-8.0) g/dL Albumin (3.5-5.0) g/dL Urine Color Urine Appearance Urine pH (5.0-9.0) Ur Specific [place] (1.005-1.025) Urine Protein (Neg-Trace) mg/dL Urine Glucose (UA) (Negative) mg/dL Urine Ketones (Negative) mg/dL Urine Blood (Negative) Urine Nitrite (Negative) Ur Leukocyte Esterase (Negative) Urine RBC (0-2) /HPF Urine WBC (0-5) /HPF Ur Squamous Epith Cells (0-2) /HPF Urine Bacteria (None Seen) Epithelial Casts Hyaline Casts (0-2) /LPF Urine Opiates Screen (Not Detect) Urine Fentanyl Screen (Not Detect) Ur Barbiturates Screen (Not Detect) Ur Phencyclidine Scrn (Not Detect) Ur Amphetamines Screen (Not Detect) U Benzodiazepines Scrn (Not Detect) Urine Cocaine Screen (Not Detect) U Marijuana (THC) Screen (Not Detect) Influenza Type A (PCR) NEGATIVE (Negative) Influenza Type B (PCR) NEGATIVE (Negative) RSV RNA Qual (PCR) NEGATIVE (Negative) SARS-CoV-2 RNA (RT-PCR) NEGATIVE (Negative) 12/06/22 12/06/22 Range/Units 11:02 11:02 WBC (4.8-10.8) X10*3/uL RBC (4.20-5.50) X10*6/uL Hgb (12.0-16.0) g/dl Hct (37.0-47.0) % MCV (80.0-98.0) fL MCH (27.0-33.0) pg MCHC (31.0-35.0) g/dl RDW (11.0-16.0) % Plt Count (160-400) X10*3/uL MPV (9.4-12.3) fL Immature Gran % (Auto) (0.0-0.4) % Neut % (Auto) (45-73) % Lymph % (Auto) (20-40) % [place] % (Auto) (2-11) % Eos % (Auto) (0-4) % Baso % (Auto) (0-2) % Lymph # (Auto) (1.2-4.9) X10*3/uL [place] # (Auto) (0.1-1.2) X10*3/uL Eos # (Auto) (0.0-0.4) X10*3/uL Baso # (Auto) (0.0-0.2) X10*3/uL Abs Immat Gran (auto) (0.00-0.03) X10*3/uL Absolute Neuts (auto) (2.0-8.3) x10*3/uL Absolute Nucleated RBC (0.0-0.012) X10*3/uL Nucleated RBC % (auto) (0.0-0.2) /100WBC PT (10.0-13.1) SEC INR (0.9-1.1) O2 Saturation % ABG pH at Pt Temp (7.35-7.45) ABG pCO2 at Pt Temp (32-45) mmHg ABG pO2 at Pt Temp (83-108) mmHg ABG HCO3 (22-26) mmol/L ABG Base Excess (Actual) mmol/L VBG pH (7.32-7.43) VBG pCO2 mmHg VBG pO2 mmHg VBG HCO3 (22-26) mmol/L VBG O2 Saturation % VBG Base Excess mmol/L Sodium (135-145) mmol/L Potassium (3.3-5.1) mmol/L Chloride (96-108) mmol/L Carbon Dioxide (22-29) mmol/L Anion Gap (12-20) BUN (9-16) mg/dL Creatinine (0.5-1.4) mg/dL Estim Creat Clear Calc Estimated GFR Random Glucose (60-115) mg/dL Lactic Acid (0.5-2.0) mmol/L Calcium (8.4-10.2) mg/dL Magnesium (1.6-2.6) mg/dL Total Bilirubin (0.0-1.0) mg/dL Direct Bilirubin (0.0-0.5) mg/dL AST (5-31) U/L ALT (0-31) U/L Alkaline Phosphatase (39-117) U/L Total Creatine Kinase (26-140) U/L Troponin I High Sens (<3.5-17.0) ng/L B-Natriuretic Peptide (<100) pg/mL Total Protein (6.5-8.0) g/dL Albumin (3.5-5.0) g/dL Urine Color Yellow Urine Appearance Cloudy Urine pH 5.0 (5.0-9.0) Ur Specific [place] 1.020 (1.005-1.025) Urine Protein 30 (1+) H (Neg-Trace) mg/dL Urine Glucose (UA) Negative (Negative) mg/dL Urine Ketones Negative (Negative) mg/dL Urine Blood Negative (Negative) Urine Nitrite Negative (Negative) Ur Leukocyte Esterase Negative (Negative) Urine RBC 0-2 (0-2) /HPF Urine WBC 0-5 (0-5) /HPF Ur Squamous Epith Cells 0-2 (0-2) /HPF Urine Bacteria None Seen (None Seen) Epithelial Casts Present Hyaline Casts 6-10 (0-2) /LPF Urine Opiates Screen Not Detected (Not Detect) Urine Fentanyl Screen Not Detected (Not Detect) Ur Barbiturates Screen Not Detected (Not Detect) Ur Phencyclidine Scrn POSITIVE H (Not Detect) Ur Amphetamines Screen Not Detected (Not Detect) U Benzodiazepines Scrn Not Detected (Not Detect) Urine Cocaine Screen Not Detected (Not Detect) U Marijuana (THC) Screen Not Detected (Not Detect) Influenza Type A (PCR) (Negative) Influenza Type B (PCR) (Negative) RSV RNA Qual (PCR) (Negative) SARS-CoV-2 RNA (RT-PCR) (Negative) <GILES Carrizales - Last Filed: 12/06/22 10:32> Independent Interpretation I performed an independent interpretation of an: EKG and Plain X-Ray <Neema Isbell NP - Last Filed: 12/07/22 15:16> Interpretation: I independently reviewed the EKG which shows normal sinus rhythm with a rate of 77, normal MD, normal QRS, normal QT <Neema Isbell NP - Last Filed: 12/07/22 15:16> Radiology Impression Discussion of test interpretation with radiology: I have reviewed the radiologist's reading. <Neema Isbell NP - Last Filed: 12/07/22 15:16> Critical Care Time Critical Care Time Critical Care Time: No <GILES Almendarez - Last Filed: 12/05/22 22:06> Discharge Plan Discharge Clinical Impression: Altered mental status, Depression <Neema Isbell NP - Last Filed: 12/07/22 15:16> Patient Disposition: Xfer SNF <Neema Isbell NP - Last Filed: 12/07/22 15:16> Transfer Details: [facility] <Neema Isbell NP - Last Filed: 12/07/22 15:16> [facility] <GILES Almendarez - Last Filed: 12/05/22 22:06> [facility] <GILES Carrizales - Last Filed: 12/06/22 10:32> Prescriptions: No Action atorvastatin 80 mg tablet 80 mg PO BEDTIME acetaminophen 325 mg Tablet 650 mg PO Q4H PRN (Reason: Pain) tizanidine 4 mg Tablet 4 mg PO DAILY@1300 clopidogrel [Plavix] 75 mg Tablet 75 mg PO DAILY triamcinolone acetonide 0.1 % Cream 1 appl TOPICAL BID Rx Instructions: apply to face benzocaine 15 mg Lozenge 15 mg MUCOUS MEMBRANE Q2H PRN (Reason: Sore Throat) levetiracetam 250 mg Tablet 250 mg PO BEDTIME levetiracetam 250 mg Tablet 500 mg PO DAILY levothyroxine 150 mcg Tablet 150 mcg PO DAILY@0600 docusate sodium 100 mg Capsule 100 mg PO DAILY hydrocortisone 2.5 % Cream 1 appl TOPICAL Q12H PRN (Reason: Pruritis) Rx Instructions: Apply to face polyethylene glycol 3350 [Miralax] 17 gram/dose Powder 17 g PO DAILY Acidophilus Capsule 1 cap PO DAILY fluticasone propionate 50 mcg/actuation Norden,Suspension 1 spray INTRANASAL Q12H PRN (Reason: Allergy Symptoms) Rx Instructions: administer into each nostril loratadine 10 mg Tablet 10 mg PO DAILY Artificial Tears([id number]) 1-0.2-0.2 % Drops 1 drp OPHTHALMIC (EYE) Q8H PRN (Reason: Dry Eye(S)) escitalopram oxalate 10 mg Tablet 10 mg PO DAILY Combivent Respimat 20-100 mcg/actuation mist 1 puff inhalation QID alum-mag hydroxide-simeth [Mylanta] 200-200-20 mg/5 mL Suspension 30 ml PO QID PRN (Reason: Indigestion) Rx Instructions: administer between meals and at bedtime albuterol sulfate 90 mcg/actuation Aerosol Powdr Breath Activated 2 inh INHALATION Q6H PRN (Reason: Shortness Of Breath Or Wheezing) magnesium hydroxide [Milk of Magnesia] 400 mg/5 mL Suspension 30 ml PO DAILY PRN (Reason: Constipation) bisacodyl 10 mg Suppository 10 mg MD DAILY PRN (Reason: Constipation) Fleet Enema 19-7 gram/118 mL Enema 118 ml MD DAILY PRN (Reason: Constipation) <Neema Isbell ELECTRICAL SERVICE TECHNICIAN - Last Filed: 12/07/22 15:16>
[2022-12-05 18:00] VITALS: BP 111/62; PULSE 75; RESP 16; TEMP 37; O2SAT 95
--- NOTE | 2022-12-05 18:12 | PHA.MEDREC ---
Pharmacy Consult ? Medication Reconciliation Pharmacy has completed the medication reconciliation. Patient had a list from [facility].
--- NOTE | 2022-12-05 18:55 | MHC.EDTECH ---
pt blood drawn including 1st and 2 nd set culture and rsv covid swab ,all sent to lab ,ekg done and was read by provider .
[2022-12-05 18:56] LABS: MANUAL DIFF FLAG NO
[2022-12-05 19:09] LABS: Venous Blood Gas Refer to POC result
[2022-12-05 19:10] LABS: INTERNATIONAL NORM RATIO 0.9 (0.9-1.1); Lactic Acid 1.1 mmol/L (0.5-2.0); Prothrombin Time 10.7 SEC (10.0-13.1)
[2022-12-05 19:10] LABS: VBG Base Excess 14.3 mmol/L; VBG HCO3 42 mmol/L (22-26); VBG pCO2 73 mmHg; VBG pH 7.37 (7.32-7.43); VBG pO2 42 mmHg
[2022-12-05 19:15] LABS: Alanine Aminotransferase 21 U/L (0-31); Albumin Level 3.4 g/dL (3.5-5.0); Alkaline Phosphatase 110 U/L (39-117); Anion Gap 12 (12-20); Aspartate Amino Transferase 13 U/L (5-31); Bilirubin Direct 0.2 mg/dL (0.0-0.5); Bilirubin Total 0.7 mg/dL (0.0-1.0); Blood Urea Nitrogen 22 mg/dL (9-16); Calcium 10.1 mg/dL (8.4-10.2); Carbon Dioxide 36 mmol/L (22-29); Chloride 104 mmol/L (96-108); Creatinine Clr Calc Pharmacy 50.7; Estimated Glomerular Filt Rate > 60; Glucose Random 107 mg/dL (60-115); Magnesium 1.9 mg/dL (1.6-2.6); Potassium 4.7 mmol/L (3.3-5.1); Sodium 147 mmol/L (135-145); Total Protein 5.6 g/dL (6.5-8.0)
[2022-12-05 19:22] LABS: Basophils Absolute Auto 0.1 X10*3/uL (0.0-0.2); Basophils Percent Auto 0.7 % (0-2); Eosinophils Absolute Auto 0.2 X10*3/uL (0.0-0.4); Eosinophils Percent Auto 2.2 % (0-4); Hematocrit 35.2 % (37.0-47.0); Hemoglobin 10.7 g/dl (12.0-16.0); Imm Gran Abs Auto 0.41 X10*3/uL (0.00-0.03); Imm Gran Pct Auto 4.8 % (0.0-0.4); Lymphocytes Absolute Auto 1.2 X10*3/uL (1.2-4.9); Lymphocytes Percent Auto 14.1 % (20-40); Mean Corpuscular HGB Conc 30.4 g/dl (31.0-35.0); Mean Corpuscular Hemoglobin 27.8 pg (27.0-33.0); Mean Corpuscular Volume 91.4 fL (80.0-98.0); Mean Platelet Volume 9.7 fL (9.4-12.3); Monocytes Absolute Auto 0.7 X10*3/uL (0.1-1.2); Monocytes Percent Auto 8.4 % (2-11); NRBC Pct Auto 0.9 /100WBC (0.0-0.2); Neutrophils Absolute Auto 5.9 x10*3/uL (2.0-8.3); Neutrophils Percent Auto 69.8 % (45-73); Platelet Count 167 X10*3/uL (160-400); Red Blood Count 3.85 X10*6/uL (4.20-5.50); Red Cell Distribution Width 18.9 % (11.0-16.0); Troponin-I High Sensitivity 9.8 ng/L (<3.5-17.0); White Blood Count 8.5 X10*3/uL (4.8-10.8)
[2022-12-05 19:24] LABS: B Type Natriuretic Peptide 23 pg/mL (<100)
[2022-12-05 19:36] LABS: Influenza A PCR NEGATIVE (Negative); Influenza B PCR NEGATIVE (Negative); Resp Syncy Virus RNA Qual PCR NEGATIVE (Negative); SARS COV2 PCR INHOUSE NEGATIVE (Negative)
[2022-12-05 21:28] VITALS: O2SAT 95
[2022-12-05 21:53] VITALS: BP 137/70; PULSE 82; RESP 22; TEMP 37.1; O2SAT 97
[2022-12-05 21:57] LABS: ABG Base Excess 14.6 mmol/L; ABG HCO3 41 mmol/L (22-26); ABG pCO2 64 mmHg (32-45); ABG pH 7.42 (7.35-7.45); ABG pO2 74 mmHg (83-108)
[2022-12-05 21:59] LABS: ABG Refer to POC result
[2022-12-06] VITALS (13 sets, daily range): BP systolic 93–130; BP diastolic 54–76; PULSE 61–76; RESP 16–21; TEMP 36.2–36.9; O2SAT 95–99
--- NOTE | 2022-12-06 00:29 | MHC.EDTECH ---
Addendum entered by Shayla Fair 12/06/22 04:55: This tech is 1-1 with patient and is at arms length. Original Note: Patient was repositioned and vitals were obtained.Patient is resting comfortable at this time call richey in reach.
--- NOTE | 2022-12-06 02:50 | MHC.CARE ---
The Care Team will assess after Utox and BAL results are submitted.
--- NOTE | 2022-12-06 04:54 | MHC.EDTECH ---
Patient is sleeping and resting comfortable at this time. call richey is in reach and this tech is at arms length of patient.
[2022-12-06] MEDS: Levothyroxine Sodium 150 MCG TABLET PO (05:45)
--- NOTE | 2022-12-06 05:45 | MHC.EDTECH ---
Patient was repositioned and is now resting comfortable at this time.call richey in reach and this tech is 1-1 and at arms length of patient.
[2022-12-06] MEDS: Clopidogrel Bisulfate 75 MG TABLET PO (08:22)
[2022-12-06] MEDS: Loratadine 10 MG TABLET PO (08:22)
[2022-12-06] MEDS: Escitalopram Oxalate 10 MG TABLET PO (08:22)
[2022-12-06] MEDS: levETIRAcetam 500 MG TABLET PO (08:22)
[2022-12-06] MEDS: Docusate Sodium 100 MG CAPSULE PO (08:22)
--- NOTE | 2022-12-06 08:22 | MHC.CARE ---
CARE Team notified rn charge CARE Team cannot meet with Pt till UA
[2022-12-06 11:14] LABS: Appearance Urine Cloudy; Color Urine Yellow; Glucose Urine UA Negative (Negative); Leukocyte Esterase Urine Negative (Negative); Nitrite Urine Negative (Negative); UMIC TRIGGER UACC YES; Urine Blood Negative (Negative); Urine Ketones Negative (Negative); Urine Protein 30 (1+) mg/dL (Neg-Trace)
[2022-12-06 11:21] LABS: Bacteria Urine None Seen (None Seen); Epith (RTE) Cast Present; RBC Urine 0-2 /HPF (0-2); Squamous Epithelial Cell Urine 0-2 /HPF (0-2); WBC Urine 0-5 /HPF (0-5)
[2022-12-06 11:24] LABS: Amphetamine Screen Urine Not Detected (Not Detect); Barbiturates, Urine Not Detected (Not Detect); Benzodiazepines Screen Urine Not Detected (Not Detect); Cannabinoid Screen Urine Not Detected (Not Detect); Cocaine Screen Urine Not Detected (Not Detect); Fentanyl, urine Not Detected (Not Detect); Opiate Screen Urine Not Detected (Not Detect); Phencyclidine Screen Urine POSITIVE (Not Detect)
--- NOTE | 2022-12-06 12:18 | PC.NURSE ---
patient sleeping, respirations are equal and unlabored. no signs of distress. patient observer at the bedside. pending care team eval at this time
--- NOTE | 2022-12-06 12:18 | MHC.CARE ---
CARE Team quality internship called [facility] ([phone]) and spoke to nurse Vikki regarding pt's behavior that precipitated her current presentation. Vikki reported pt's behaviors including being extremely combative, using harsh language towards herself and others, anxious and endorsing SI with gesture. Vikki stated this behavior has been going on since approximately September 2022 and only recently has she gestured to harm herself. 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 Vikki stated pt's baseline is intelligent, pleasant and very nice to everyone. She stressed pt's suicidal gesture is not something she has done in the past and that alarmed everyone. Recently, pt has been having increased anxiety stating, I'm so anxious I feel like I'm going to . Pt has been a resident at [facility] since 07/07/2019. She currently has no healthcare proxy. Per Vikki, pt has no recorded familial support. Pt has 2 emergency contacts in her file: Yvonne Saunders ([phone]) and Ivania Sinclair ([phone]). Vikki reported pt is not regularly seen by any psychiatric providers or therapists. Pt is medication compliant.
--- NOTE | 2022-12-06 13:30 | PC.NURSE ---
care team at the bedside for eval
[2022-12-06] MEDS: TiZANidine HCL 4 MG TABLET PO (13:44)
--- NOTE | 2022-12-06 14:03 | MHC.CARE ---
CARE Team met with Pt who presents as alert and orientated. Pt stated last evening having become frustrated with staff and put the nasal canal around neck. Pt did not report intent to end her life Pt expressed frustration and not knowing what to do. Pt reports she has no hx of SA or gesture. She reports no prior [facility] admissions. Pt reports hx of therapy at [facility] but stopped attending due to change in provider. Pt states she struggles at nighttime often around 7pm after dinner and feels like there isn't structure. She stated that she would like to return home to [facility]. Pt reports she resides there the past 3 years. She states she has no family and has a friend that is supportive. Plan for CARE Team to review case with Yoly Amezcua NP
--- NOTE | 2022-12-06 14:42 | MHC.CARE ---
CARE Team left message with clinical supervisor steel [employer] at [facility]
--- NOTE | 2022-12-06 16:00 | MHC.EDTECH ---
this pct assumed care of pt at 1500 ,1600 rounding done ,vitals sign taken pt was set up with her lunch .
--- NOTE | 2022-12-06 18:37 | MHC.EDTECH ---
patient was given dinner ,pt ate 50 % of meal and drank 240 ml milk ,after dinner pt was given a bed bath lotion apply ,mouth swab ,pt watching television and warm blanket given .
--- NOTE | 2022-12-06 20:00 | MHC.EDTECH ---
2000 rounding done ,vitals sign taken ,pt awake rn in room giving night time meds .
[2022-12-06] MEDS: Atorvastatin Calcium 80 MG TABLET PO (20:25)
[2022-12-06] MEDS: levETIRAcetam 250 MG TABLET PO (20:25)
--- NOTE | 2022-12-06 20:27 | PC.NURSE ---
Assumed care for pt. Pt aox3 resting at the bedside in no apparent distress. Medicated as ordered with no complications and tolerated well. Will continue to monitor.
--- NOTE | 2022-12-06 22:00 | MHC.EDTECH ---
pt 2200 rounding done ,vitals sign taken pt watching television at this time . pt refused bedtime snack .
[2022-12-07] VITALS: BP 116/51; PULSE 71; RESP 16; TEMP 37.1; O2SAT 96
--- NOTE | 2022-12-07 00:08 | MHC.EDTECH ---
0000 rounding done ,vitals sign taken ,pt sleeping ,pt is dry pure wick in place .
--- NOTE | 2022-12-07 03:07 | PC.NURSE ---
Pt reports headache, 5/10. Declines Tylenol as pt states does not work fast enough. aware.
--- NOTE | 2022-12-07 03:13 | PC.NURSE ---
New order for Fioricet declined by pt.
--- NOTE | 2022-12-07 03:15 | MHC.EDTECH ---
pt was hungry ,turkey sandwich given and juice .
[2022-12-07 04:40] VITALS: BP 120/55; PULSE 80; RESP 20; TEMP 36.8; O2SAT 100
[2022-12-07 05:48] VITALS: BP 126/42; PULSE 83; RESP 13; TEMP 36.8; O2SAT 98
[2022-12-07] MEDS: Levothyroxine Sodium 150 MCG TABLET PO (05:51)
--- NOTE | 2022-12-07 05:53 | PC.NURSE ---
Pt aox3 resting at the bedside in no apparent distress. Medicated as ordered with pudding as req by pt. Pt tolerated well. Pt aware of plan of care.
[2022-12-07 06:14] VITALS: BP 124/47; PULSE 82; RESP 20; TEMP 36.8; O2SAT 95
[2022-12-07 08:08] VITALS: BP 106/49; PULSE 81; RESP 16; TEMP 36.8; O2SAT 94
[2022-12-07] MEDS: Acetaminophen 325 MG TABLET 650 MG PO (09:04)
[2022-12-07] MEDS: polyethylene glycoL 3350 17 GM POWD.PACK PO (09:04)
[2022-12-07] MEDS: Clopidogrel Bisulfate 75 MG TABLET PO (09:04)
[2022-12-07] MEDS: Escitalopram Oxalate 10 MG TABLET PO (09:04)
[2022-12-07] MEDS: Loratadine 10 MG TABLET PO (09:04)
[2022-12-07] MEDS: levETIRAcetam 500 MG TABLET PO (09:04)
[2022-12-07] MEDS: Docusate Sodium 100 MG CAPSULE PO (09:04)
[2022-12-07 11:23] VITALS: PULSE 84; RESP 13; O2SAT 97
--- NOTE | 2022-12-07 13:16 | MHC.EDTECH ---
Patient stated she felt like she had a BM. Pt was rolled to her side and with help of another tech, Pt was checked and she is clean/dry. Pt repositioned and sat up.
--- NOTE | 2022-12-07 15:17 | MHC.CARE ---
Following todays MSU for patient, who expresses remorse for her agitation and behaviors, and acknowledges her recent frustration, patient will return to the SNF. SNF notified and expects patient to return via ambulance.
== END 2022-12-07 16:41 | disposition skilled nursing facility (03) ==
PROVIDERS: Nurse Practitioner Family; Physician Assistant; Student in an Organized Health Care Education/Training Program; Emergency Provider Emergency Medicine; PCP Family Medicine
DX: R41.82 Altered mental status, unspecified (principal); F33.1 Major depressive disorder, recurrent, moderate; R06.02 Shortness of breath; J44.9 Chronic obstructive pulmonary disease, unspecified; R05.9 Cough, unspecified; Z20.828 Contact with and (suspected) exposure to other viral communicable diseases; Z20.822 Contact with and (suspected) exposure to COVID-19; Z79.899 Other long term (current) drug therapy; Z87.891 Personal history of nicotine dependence
CPT/HCPCS: 0241U; 36415; 51702; 71045; 80048; 80076; 80307; 81001; 82550; 82803; 83605; 83735; 83880; 84484; 85025; 85610; 87040; 93005; 94640; 96360; 99285; S9485

== ENCOUNTER 2022-12-08 05:40 | Outpatient (REF) | payer MEDICAID, SELFPAY ==
[2022-12-08 06:01] LABS: Mean Corpuscular HGB Conc 30.3 g/dl (31.0-35.0); Mean Corpuscular Hemoglobin 27.7 pg (27.0-33.0); Mean Corpuscular Volume 91.4 fL (80.0-98.0); Mean Platelet Volume 9.1 fL (9.4-12.3); NRBC Pct Auto 0.4 /100WBC (0.0-0.2); Platelet Count 168 X10*3/uL (160-400); Red Blood Count 3.61 X10*6/uL (4.20-5.50); Red Cell Distribution Width 19.2 % (11.0-16.0); White Blood Count 7.1 X10*3/uL (4.8-10.8)
[2022-12-08 06:16] LABS: Alanine Aminotransferase 17 U/L (0-31); Albumin Level 3.1 g/dL (3.5-5.0); Alkaline Phosphatase 98 U/L (39-117); Anion Gap 13 (12-20); Aspartate Amino Transferase 13 U/L (5-31); Bilirubin Total 0.7 mg/dL (0.0-1.0); Blood Urea Nitrogen 24 mg/dL (9-16); Calcium 9.9 mg/dL (8.4-10.2); Carbon Dioxide 34 mmol/L (22-29); Chloride 104 mmol/L (96-108); Estimated Glomerular Filt Rate > 60; Glucose Random 105 mg/dL (60-115); Potassium 4.4 mmol/L (3.3-5.1); Sodium 147 mmol/L (135-145); Total Protein 5.3 g/dL (6.5-8.0)
[2022-12-08 07:59] LABS: Band Neutrophils Percent 1 % (3-5); Eosinophils Absolute Manual 0.4 X10*3/uL (0.0-0.4); Eosinophils Percent Manual 5 % (0-4); Lymphocytes Absolute Manual 1.6 X10*3/uL (1.2-4.9); Lymphocytes Percent Manual 22 % (20-40); Monocytes Absolute Manual 0.2 X10*3/uL (0.1-1.2); Monocytes Percent Manual 3 % (2-11); Myelocytes Absolute 0.1 X10*/uL; Myelocytes Percent 1 %; Neutrophils Absolute Manual 4.9 X10*3/uL (2.0-8.3); Neutrophils Percent Manual 68 % (45-73)
[2022-12-08 08:02] LABS: Basophilic Stippling 1+ (0-2) /OIF; Microcytosis 1+ (5-14) /OIF; Ovalocytes 1+ (5-14) /OIF; RBC Morphology NOTED
[2022-12-08 08:03] LABS: Hypochromasia 1+ (5-14) /OIF; Polychromasia 1+ (0-2) /OIF
[2022-12-08 08:04] LABS: Platelet Estimate NORMAL (NORMAL); Platelet Morphology Comment NORMAL
== END 2022-12-08 05:41 | disposition home or self-care (01) ==
LOC: HO.MMNH3L 05:40
PROVIDERS: Visit Provider Family Medicine
DX: E03.9 Hypothyroidism, unspecified (principal); F32.9 Major depressive disorder, single episode, unspecified; J44.9 Chronic obstructive pulmonary disease, unspecified
CPT/HCPCS: 36415; 80053; 85007; 85025; 85027